=== PATIENT | female | born 1955 | race Caucasian/White ===

== ENCOUNTER 2025-01-06 09:09 | Inpatient (IN) | payer MEDICARE, OTHER, SELFPAY ==
[2025-01-06] VITALS (14 sets, daily range): BP systolic 116–150; BP diastolic 69–97; PULSE 74–94; RESP 14–18; TEMP 36.6–37.2; O2SAT 92–99; BMI 24.5
--- NOTE | 2025-01-06 09:11 | EKG12_ITS ---
Test Reason : NEURO
--- NOTE | 2025-01-06 09:11 | CT_ITS ---
PROCEDURE: CT/STROKE Brain/Head without Cont
--- NOTE | 2025-01-06 09:12 | RAD_ITS ---
PROCEDURE: RAD/Chest 1 View
--- NOTE | 2025-01-06 09:12 | CT_ITS ---
PROCEDURE: CT/STROKE CTA Head AND Neck W/Con
[2025-01-06 09:33] LABS: Hematocrit 37.6 % (37-47); Hemoglobin 13.1 g/dL (12.0-15.0); Immature Granulocytes Count 0.050 X10^3/uL (0.0-0.0); Mean Corp Hgb Conc 34.8 g/dL (32-36); Mean Corpuscular Volume 88.3 fL (81-99); Mean Platelet Vol. 9.1 fl (6.2-12.0); NRBC Flagged by Analyzer 0 % (0-5); Platelet Count 379 K/mm3 (150-450); RBC Distribution Width CV 12.5 % (11.6-14.6); RBC Distribution Width SD 40.2 fl (35.1-43.9); Red Blood Count 4.26 M/mm3 (4.2-5.4); White Blood Count 10.3 K/mm3 (4.4-11.0)
[2025-01-06 09:40] LABS: Partial Thromboplast Time 23.2 Seconds (24.1-36.2); Prothrombin Time (Protime)PT. 12.5 SECONDS (11.7-14.9)
--- NOTE | 2025-01-06 09:46 | EX.ED.DYSGE1 ---
HPI History of Present Illness Chief Complaint: Stroke Alert Narrative Narrative: Patient is a 69-year-old female with no known significant past medical history who presented to the emergency department the chief complaint of left arm weakness. Patient significant other at bedside notes that he noted yesterday afternoon around 2:00 in the afternoon that she had some left-sided facial droop. She states that she had a headache throughout the evening and notes that this morning when she woke up she states that she was able to to use her left arm however states that she did fall in the living room which is abnormal for her. States that now she cannot move her left arm. Her son notes that his father called him and he immediately brought her here for further evaluation patient denies any blood thinning medications. [facility] Medical History unable to obtain Home Medications ?Medication ?Instructions ?Recorded ?Last Taken ?Type lisinopril 10 mg tablet 10 mg PO DAILY #30 tabs 06/13/14 Unknown Rx Allergy/AdvReac Type Severity Reaction Status Date / Time No Known Allergies Allergy Verified 06/13/14 09:40 Family History unable to obtain Social History Smoking Status: Current some day smoker tobacco type: cigarettes ROS ROS ED ROS Narrative Constitutional: Complains of headache as noted above denies any dizziness Eyes: Denies double vision blurry vision Cardiovascular: Denies chest pain Respiratory: Denies shortness of breath Abdomen: Denies nausea vomit diarrhea : Denies any urinary symptoms Neurological: Complains of left facial droop and left arm weakness as noted above Musculoskeletal: Denies back pain Skin: Denies rashes or lesions EXAM Physical Exam Narrative Exam Narrative: General: Patient was lying in bed rest comfortably Head: Atraumatic, normocephalic Eyes: PERRL bilaterally, EOMI bilateral, no conjunctival injection noted Neck: Soft, supple, trachea midline Cardiovascular: Regular rate and rhythm Respiratory: Clear to auscultation bilaterally Abdomen: No tenderness to palpation Extremities: Patient has significant left upper extremity weakness when compared to the right +4/5 in the right upper extremity, +4/5 strength in the bilateral lower extremities, radial pulses +2/4 in bilateral extremities Neurological: Patient following commands knew that she was at [facility] the year is 2024. NIH of 6 GCS 15 Skin: Warm, dry, tact no rashes or lesions noted Const Vital Signs: 01/06/25 09:11 01/06/25 09:31 01/06/25 09:34 Temperature 98 F Temperature Source Temporal Pulse Rate 94 90 Respiratory Rate 18 18 Blood Pressure 147/81 H 139/97 H Blood Pressure Mean 103 111 Pulse Ox 99 99 Oxygen Delivery Method Room Air 01/06/25 09:41 Temperature Temperature Source Pulse Rate 90 Respiratory Rate 18 Blood Pressure 139/97 H Blood Pressure Mean 111 Pulse Ox 99 Oxygen Delivery Method Room Air MDM MDM MDM Narrative Medical decision making narrative: Patient is a 69-year-old female who presented to the emergency department with the concern for acute stroke. On the differential diagnose includes but not limited to intracranial hemorrhage, ischemic stroke, intracranial mass, hypoglycemia, electrolyte abnormality, ACS. Once workup is obtained reviewed she will be reevaluated. Patient is not a tenecteplase candidate as her symptoms started around 2 PM yesterday afternoon on 01/05/2025. Patient says CBC reviewed and showed no evidence leukocytosis white blood cell normal at 10.3, he was 13.1, platelet count of 379. Patient INR normal at 0.9, PT of 12.5. Patient's chemistries are pending troponin was normal at 13 [id number] glucose was normal at 92. Patient's EKG reviewed and showed sinus rhythm with a rate of 94 bpm with a OK interval of 206. Patient CT head brain without contrast showed focal area of decreased attenuation in the posterior right parietal lobe extending to the right temporal lobe may represent area of ischemia although underlying neoplastic process cannot be excluded radiology has much higher suspicion for ischemia given her acute presentation. Patient's chest x-ray reviewed by myself which showed mild interstitial changes in the right side no costophrenic angle blunting. Patient CTA of the head was read and alerted to me by radiologist that the patient has a right M3 occlusion near the right sylvian fissure. I called and spoke again with the on-call teleneurologist at [facility] Dr. Agudelo And he states that the management remains the same as the occlusion is too distal for their retrieval, Which was recommended 325 aspirin and 300 mg of Plavix which was ordered. Will reach out to the hospitalist for admission. Spoke with hospitalist Dr. Vizcaino who accept patient for admission. Patient notified as well as significant other at bedside they are agreeable this plan all question concerns answered at bedside. Critical care time 47 minutes Lab Data Labs: Laboratory Results - last 24 hr 01/06/25 01/06/25 09:18 09:19 WBC 10.3 RBC 4.26 Hgb 13.1 Hct 37.6 MCV 88.3 MCH 30.8 MCHC 34.8 RDW Std Deviation 40.2 RDW Coeff of Lori 12.5 Plt Count 379 MPV 9.1 Immature Gran % (Auto) 0.500 Neut % (Auto) 78.3 H Lymph % (Auto) 11.8 L [place] % (Auto) 7.3 Eos % (Auto) 1.6 Baso % (Auto) 0.5 Absolute Neuts (auto) 8.0 H Absolute Lymphs (auto) 1.21 Nucleated RBC % 0 PT 12.5 INR 0.9 APTT 23.2 L Sodium 136 Potassium 4.1 Chloride 102 Carbon Dioxide 22.6 Anion Gap 11 BUN 26 H Creatinine 0.81 Estim Creat Clear Calc 60.08 Est GFR (MDRD) Non-Af 78 BUN/Creatinine Ratio 32.3 H Glucose 107 H Calcium 9.5 Troponin T High Sens 13 POC Glucose 92 Radiography Diagnostic Testing: Clinical Impression(s) from Imaging Studies Brain CT 01/06/25 09:11 IMPRESSION: Focal area of decreased attenuation in the posterior right parietal lobe extending to the right temporal lobe. This may represent an area of ischemia although underlying neoplastic process can not be excluded. Punctate calcified density in the right sylvian fissure. Red Alert: Ischemic changes Right parietal lobe The critical findings in the findings and impression above were relayed directly by me by telephone to Rufino Crisostomo on 01/06/2025 at 9:25 am with readback verification. Reading Location: [id number] Chest X-Ray 01/06/25 09:12 IMPRESSION: Mild increased linear markings at the lung bases suggestive of basilar linear scarring. Reading Location: [id number] Head/Neck CTA 01/06/25 09:12 IMPRESSION: Occlusion of the M3 branch of the right middle cerebral artery as it enters the right sylvian fissure. Red Alert: Right M3 occlusion The critical findings in the findings and impression above were relayed directly by me by telephone to Rufino Crisostomo on 01/06/2025 at 9:50 am with readback verification. Reading Location: [id number] Discharge Plan Dx/Rx/DC Orders Clinical Impression: Left arm weakness, Facial droop due to stroke, Left leg numbness, Ischemic cerebrovascular accident (CVA) Disposition Disposition: Acute Care Hospital [facility]
[2025-01-06 09:48] LABS: Troponin T High Sensitivity 13 ng/L (<=14)
[2025-01-06 09:59] LABS: Anion Gap 11 (5-15); BUN 26 mg/dL (4-19); BUN/Creat Ratio 32.3 RATIO (10-20); Calcium,Total 9.5 mg/dL (7.6-11.0); Carbon Dioxide 22.6 mmol/L (21.0-32.0); Chloride 102 mmol/L (98-108); Estimated Creatinine Clearance 60.08 ml/min (50-250); Glucose 107 mg/dL (70-99); Potassium 4.1 mmol/L (3.3-5.1)
--- NOTE | 2025-01-06 10:02 | MRI_ITS ---
PROCEDURE: MRI/Brain without Contrast
--- NOTE | 2025-01-06 10:04 | PCM.HP.STD ---
HPI - General General Date of Admission: 01/06/25 HPI Narrative JADEN MOORE, is a 69 F who presents to the hospital with concerns for stroke. Family noticed yesterday around 2 PM yesterday left facial droop that progressed to a left upper extremity weakness and left lower extremity weakness. In the emergency room she is about an NIH of 5 with significant weakness on her left side with left facial droop that is persistent. CTA of the head and neck was unremarkable she was given a dose of aspirin and Plavix and will be admitted for further workup and evaluation for outpatient disposition. [facility] Medical History High cholesterol Heart attack Hypertension Medical History unable to obtain Home Medications ?Medication ?Instructions ?Recorded ?Last Taken ?Type amlodipine 5 mg tablet 5 mg PO DAILY blood pressure 01/06/25 Unknown History atorvastatin 40 mg tablet 40 mg PO DAILY cholesterol 01/06/25 Unknown History calcium 600 mg (as 1 tab PO DAILY suppliment 01/06/25 Unknown History carbonate)-vitamin D3 20 mcg (800 unit) tablet (Caltrate with Vitamin D3) losartan 50 mg tablet 50 mg PO DAILY blood pressure 01/06/25 Unknown History omeprazole 20 mg capsule,delayed 20 mg PO DAILY gerd 01/06/25 Unknown History release Allergy/AdvReac Type Severity Reaction Status Date / Time No Known Allergies Allergy Verified 06/13/14 09:40 Family History Other Cancer Diabetes Heart disease Family History unable to obtain Surgical History H/O section Social History (Updated 01/06/25 @ 11:47 by Francine Tovar) Smoking Status: Current some day smoker tobacco type: cigarettes ROS Constitutional Constitutional: Denies chills, fatigue, fever(s) or malaise Eyes Eyes: Denies blurry vision ENT HEENT: Denies headache(s) or nasal discharge Cardiovascular Cardiovascular: Denies chest pain, dyspnea on exertion or syncope Respiratory/Chest Respiratory/Chest: Denies cough, shortness of breath at rest or shortness of breath with exertion Gastrointestinal Gastrointestinal: Denies constipation, diarrhea, nausea or vomiting Genitourinary Genitourinary: Denies dysuria Neurologic Neurologic: Reports abnormal speech, focal weakness and paresthesias; Denies numbness or tremor(s) Psychiatric Psychiatric: Denies anxiety or depression Vital Signs Vital Signs Vital Signs: 01/06/25 09:11 01/06/25 09:31 01/06/25 09:34 Temperature 98 F Temperature Source Temporal Pulse Rate 94 90 Respiratory Rate 18 18 Blood Pressure 147/81 H 139/97 H Blood Pressure Mean 103 111 Pulse Ox 99 99 Oxygen Delivery Method Room Air 01/06/25 09:41 Temperature Temperature Source Pulse Rate 90 Respiratory Rate 18 Blood Pressure 139/97 H Blood Pressure Mean 111 Pulse Ox 99 Oxygen Delivery Method Room Air Weight Weight: 128 lb Body Mass Index (BMI) 20.0 Physical Exam Narrative General: Alert, Oriented x3, Cooperative, No apparent distress HEENT: Atraumatic, PERRLA, EOMI, Normocephalic Oral: Moist Mucosa Neck: Supple, No JVD Lungs: Diminished, Normal air movement, No rhonchi, No wheeze, No rales Cardiovascular: Regular rate, Regular Rhythm, Normal S1, Normal S2, No murmurs Abdomen: Soft, Non Tender, Non-Distended, No Hepato-splenomegaly Extremities: No edema, Capillary Refill Less than 3 Seconds Skin: No rashes, No breakdown Musculoskeletal: No Tenderness to Palpation of Joints or Extremities Neurological: NIH of 5 with left upper extremity drift and weakness with decreased sensation of the left lower extremity compared to the right left facial droop Psych/Mental Status: Normal Affect, Appropriate Results Lab / Micro Data 01/06/25 09:19 01/06/25 09:19 Labs: Laboratory Results - last 24 hr 01/06/25 09:18: POC Glucose 92 01/06/25 09:19: WBC 10.3, RBC 4.26, Hgb 13.1, Hct 37.6, MCV 88.3, MCH 30.8, MCHC 34.8, RDW Std Deviation 40.2, RDW Coeff of Lori 12.5, Plt Count 379, MPV 9.1, Immature Gran % (Auto) 0.500, Neut % (Auto) 78.3 H, Lymph % (Auto) 11.8 L, Jerome % (Auto) 7.3, Eos % (Auto) 1.6, Baso % (Auto) 0.5, Absolute Neuts (auto) 8.0 H, Absolute Lymphs (auto) 1.21, Nucleated RBC % 0, PT 12.5, INR 0.9, APTT 23.2 L, Sodium 136, Potassium 4.1, Chloride 102, Carbon Dioxide 22.6, Anion Gap 11, BUN 26 H, Creatinine 0.81, Estim Creat Clear Calc 60.08, Est GFR (MDRD) Non-Af 78, BUN/Creatinine Ratio 32.3 H, Glucose 107 H, Calcium 9.5, Troponin T High Sens 13 Imaging Radiology Impression Brain CT 01/06/25 09:11 IMPRESSION: Focal area of decreased attenuation in the posterior right parietal lobe extending to the right temporal lobe. This may represent an area of ischemia although underlying neoplastic process can not be excluded. Punctate calcified density in the right sylvian fissure. Red Alert: Ischemic changes Right parietal lobe The critical findings in the findings and impression above were relayed directly by me by telephone to Rufino Crisostomo on 01/06/2025 at 9:25 am with readback verification. Reading Location: [facility] Chest X-Ray 01/06/25 09:12 IMPRESSION: Mild increased linear markings at the lung bases suggestive of basilar linear scarring. Reading Location: [facility] Head/Neck CTA 01/06/25 09:12 IMPRESSION: Occlusion of the M3 branch of the right middle cerebral artery as it enters the right sylvian fissure. Red Alert: Right M3 occlusion The critical findings in the findings and impression above were relayed directly by me by telephone to Rufino Crisostomo on 01/06/2025 at 9:50 am with readback verification. Reading Location: [facility] Assessment & Plan Assessment/Plan (1) Ischemic cerebrovascular accident (CVA): PLAN: Plan 1. CVA ? CT of the head and neck shows an occlusion of the M3 branch of the right middle cerebral artery as it enters the right sylvian fissure ?CT of the brain demonstrates a subacute stroke ? Right and left ICA show stenosis, will get a carotid Doppler for better characterization ? Continue statin ? Continue with aspirin and Plavix ? Appreciate neurology's assistance ? Continue with stroke protocol 2. Essential HTN/HLD ? Will hold her Norvasc and losartan for permissive hypertension ? Will increase her Lipitor to 80 mg daily ? Will monitor her blood pressures and make adjustments as necessary 3. GERD ? Stable ? Continue with PPI DVT: SCDs 75 minutes was spent on direct patient care, including documentation as well as chart review and collaboration with colleagues Charges/Coding Visit Charges Inpatient E&M: 16530 Init Hosp L3
[2025-01-06] MEDS: Lactated Ringers 1,000 ML 125 ML IV (10:11)
--- NOTE | 2025-01-06 10:30 | CDU_ITS ---
Reason For Study VL/Carotid Duplex Ultrasound
--- NOTE | 2025-01-06 11:25 | ECHOD_ITS ---
Reason For Study ECHO/Echo Complete
[2025-01-06 11:36] LABS: Troponin T High Sens 2 HR 18 ng/L (<=14)
[2025-01-06 13:30] LABS: Troponin T High Sens 4 HR 13 ng/L (<=14)
[2025-01-07 03:00] VITALS: BP 141/73; PULSE 74; PULSE 77; RESP 16; TEMP 37; O2SAT 93
[2025-01-07 05:34] LABS: Hematocrit 33.2 % (37-47); Hemoglobin 11.4 g/dL (12.0-15.0); Immature Granulocytes Count 0.010 X10^3/uL (0.0-0.0); Mean Corp Hgb Conc 34.3 g/dL (32-36); Mean Corpuscular Volume 87.8 fL (81-99); Mean Platelet Vol. 9.4 fl (6.2-12.0); NRBC Flagged by Analyzer 0 % (0-5); Platelet Count 312 K/mm3 (150-450); RBC Distribution Width CV 12.8 % (11.6-14.6); RBC Distribution Width SD 41.3 fl (35.1-43.9); Red Blood Count 3.78 M/mm3 (4.2-5.4); White Blood Count 6.5 K/mm3 (4.4-11.0)
[2025-01-07 06:22] LABS: Anion Gap 10 (5-15); BUN 20 mg/dL (4-19); BUN/Creat Ratio 29.0 RATIO (10-20); Calcium,Total 8.9 mg/dL (7.6-11.0); Carbon Dioxide 21.2 mmol/L (21.0-32.0); Chloride 106 mmol/L (98-108); Estimated Creatinine Clearance 56.93 ml/min (50-250); Glucose 88 mg/dL (70-99); Potassium 3.4 mmol/L (3.3-5.1)
[2025-01-07 06:50] LABS: Cholesterol 148 mg/dL (<=200); Low Density Lipoprotein Calc. 73 mg/dL; Triglycerides 56 mg/dL; Very Low Density Lipoprotein 11 mg/dL (5-40); cholesterol:hdl ratio screen 2.34
[2025-01-07 07:00] VITALS: BP 125/82; PULSE 71; RESP 14; TEMP 37.3; O2SAT 93
[2025-01-07 09:38] VITALS: O2SAT 90
--- NOTE | 2025-01-07 09:46 | PCM.PN.HOSP ---
Subjective Subjective Deficits remain the same as yesterday. Objective Data Objective Data Vital Signs: Vital Signs Temp Pulse Resp BP Pulse Ox O2 Del Method 99.1 F 71 14 125/82 H 93 Room Air 01/07/25 07:00 01/07/25 07:00 01/07/25 07:00 01/07/25 07:00 01/07/25 07:00 01/07/25 07:55 Oxygen Delivery Method Room Air Weight: 133 lb 13.129 oz Body Mass Index (BMI) 24.5 Intake & Output: Intake and Output for Last 24 Hours 01/06/25 01/07/25 01/08/25 03:59 03:59 03:59 Intake Total 1200 / 1200 Balance 1200 / 1200 Lab / Micro Data 01/07/25 04:48 01/07/25 04:48 Labs: Laboratory Results - last 24 hr 01/06/25 09:19: Sodium 136, Potassium 4.1, Chloride 102, Carbon Dioxide 22.6, Anion Gap 11, BUN 26 H, Creatinine 0.81, Estim Creat Clear Calc 60.08, Est GFR (MDRD) Non-Af 78, BUN/Creatinine Ratio 32.3 H, Glucose 107 H, Calcium 9.5, Troponin T High Sens 13 01/06/25 11:05: Troponin T Hi Sens 2 Hr 18 H 01/06/25 12:50: Troponin T Hi Sens 4Hr 13 01/07/25 04:48: WBC 6.5, RBC 3.78 L, Hgb 11.4 L, Hct 33.2 L, MCV 87.8, MCH 30.2, MCHC 34.3, RDW Std Deviation 41.3, RDW Coeff of Lori 12.8, Plt Count 312, MPV 9.4, Immature Gran % (Auto) 0.200, Neut % (Auto) 66.7, Lymph % (Auto) 20.8, Gage % (Auto) 10.5 H, Eos % (Auto) 1.5, Baso % (Auto) 0.3, Absolute Neuts (auto) 4.3, Absolute Lymphs (auto) 1.35, Nucleated RBC % 0, Sodium 138, Potassium 3.4, Chloride 106, Carbon Dioxide 21.2, Anion Gap 10, BUN 20 H, Creatinine 0.70, Estim Creat Clear Calc 56.93, Est GFR (MDRD) Non-Af 94, BUN/Creatinine Ratio 29.0 H, Glucose 88, Calcium 8.9, Triglycerides 56, Cholesterol 148, LDL Cholesterol, Calc 73, VLDL Cholesterol 11, HDL Cholesterol 63, Cholesterol/HDL Ratio 2.34 Radiography Diagnostic Testing: Radiology Impression Chest X-Ray 01/06/25 09:12 IMPRESSION: Mild increased linear markings at the lung bases suggestive of basilar linear scarring. Reading Location: [facility] Head/Neck CTA 01/06/25 09:12 IMPRESSION: Occlusion of the M3 branch of the right middle cerebral artery as it enters the right sylvian fissure. Red Alert: Right M3 occlusion The critical findings in the findings and impression above were relayed directly by me by telephone to Rufino Crisostomo on 01/06/2025 at 9:50 am with readback verification. Reading Location: [facility] Brain MRI 01/06/25 10:02 IMPRESSION: 1. Acute ischemia right insular cortex and parietal lobe. No hemorrhage. 2. Chronic changes of microvascular ischemia including the frontal and parietal lobes and the kam. 3. Small mass immediately posterior to the dens, right of midline with mild mass effect on the caudal medulla. This is suboptimally imaged. On a nonemergent basis consider dedicated MRI with contrast of the temporal bone/cerebellopontine angle. Differential consideration includes a synovial cyst (retro dental synovial cyst). Reading Location: [id number] Carotid Duplex 01/06/25 10:30 Interpretation Summary Mild (<50%) stenosis right extracranial internal carotid. Mild (<50%) stenosis left extracranial internal carotid. Patent and antegrade vertebrals bilaterally. Ordering Physician: Dung Vizcaino Performed By: Alf Arzola, RVT Echocardiogram 01/06/25 11:25 Interpretation Summary The left ventricular ejection fraction is 70 %. Normal LV size. Stage 1 diastolic dysfunction. Aortic sclerosis, no stenosis. Small (<1.0 cm) pericardial effusion. There are no echocardiographic indications of cardiac tamponade. Ordering Physician: Dung Vizcaino Referring Physician: Sherley Farrar Performed By: Marilee Finnegan RDCS Physical Exam Narrative General: Alert, Oriented x3, Cooperative, No apparent distress HEENT: Atraumatic, PERRLA, EOMI, Normocephalic Oral: Moist Mucosa Neck: Supple, No JVD Lungs: Diminished, Normal air movement, No rhonchi, No wheeze, No rales Cardiovascular: Regular rate, Regular Rhythm, Normal S1, Normal S2, No murmurs Abdomen: Soft, Non Tender, Non-Distended, No Hepato-splenomegaly Extremities: No edema, Capillary Refill Less than 3 Seconds Skin: No rashes, No breakdown Musculoskeletal: No Tenderness to Palpation of Joints or Extremities Neurological: NIH of 5 with left upper extremity drift and weakness with decreased sensation of the left lower extremity compared to the right left facial droop Psych/Mental Status: Normal Affect, Appropriate Assessment & Plan Assessment/Plan (1) Ischemic cerebrovascular accident (CVA): PLAN: Plan 1. CVA ? CT of the head and neck shows an occlusion of the M3 branch of the right middle cerebral artery as it enters the right sylvian fissure ?CT of the brain demonstrates a subacute stroke, MRI confirms stroke in the right insular cortex and parietal lobe ? Right and left ICA show stenosis, carotid Doppler demonstrated less than 50% stenosis in the bilateral extracranial carotid arteries ? Continue statin ? Continue with aspirin and Plavix ? Appreciate neurology's assistance ? Continue with stroke protocol ? Small mass immediately posterior to the dens, right of midline with mild mass effect on the caudal medulla. This is suboptimally imaged. On a nonemergent basis consider dedicated MRI with contrast of the temporal bone/cerebellopontine angle. 2. Essential HTN/HLD ? Will hold her Norvasc and losartan for permissive hypertension ? Will increase her Lipitor to 80 mg daily ? Will monitor her blood pressures and make adjustments as necessary 3. GERD ? Stable ? Continue with PPI DVT: SCDs Charges/Coding Visit Charges Inpatient E&M: 64354 Subs Hosp L2 NIHSS NIHSS Nursing Documentation NIHSS Nursing Documentation: NIHSS: Ischemic Stroke/TIA Start: 01/06/25 11:25 Text: For PCU Patients: NIH and Neuro Check every 4 Status: Active hours, PRN and with change in RN caregiver. Freq: [id number] Protocol: Activity Type Activity Date Activity User E-sign Co-sign Detail Recorded Client Recorded Date Recorded By Document 01/07/25 07:00 DS [id number] 01/07/25 07:54 DS 01/07/25 07:00 NIH Stroke Scale [NIHSS] A score of 0 is normal or asymptomatic . Total possible score is 42. Inpatient: RN or Physician to activate a stroke alert for onset of new stroke symptoms or with NIHSS increase >/= 3 points. Following change in neurological status, NIHSS will be performed per physician order or more frequently PRN. -1a. Level of Consciousness 0 - Alert; keenly responsive -1b. LOC Questions 0 - Answers BOTH questions correctly -1c. LOC Commands 0 - Performs BOTH tasks correctly -2. Best Gaze 0 - Normal -3. Visual 0 - No visual loss -4. Facial Palsy 1 - Minor paralysis ( flattened nasolabial fold , asymmetry on smiling) -5a. Left Arm 1 - Drift; arm drifts downward but doesn?t hit the bed -5b. Right Arm 0 - No drift; arm holds 90 ( or 45) degrees for full 10 seconds -6a. Left Leg 0 - No drift; leg holds 30- degree position for full 5 seconds -6b. Right Leg 0 - No drift; leg holds 30- degree position for full 5 seconds -7. Limb Ataxia 1 - Present in 1 limb -8. Sensory 0 - Normal; no sensory loss -9. Best Language 0 - No aphasia; normal -10. Dysarthria 1 = Mild-to- moderate dysarthria; -11. Extinction and Inattention 0 - No abnormality -Total 4 Query Text:A score of 0 is normal or asymptomatic. Total possible score is 42 . ED: Notify Physician for NIHSS increase by > / = 3 points. Inpatient: RN or Physician to activate a stroke alert for NIHSS increase of > / = 3 points. Coma Scale [Assess] -Eye Opening Spontaneous -Motor Obeys Commands -Verbal Oriented [Total] -Coma Scale Total 15
--- NOTE | 2025-01-07 10:00 | CASEMGMT ---
Addendum entered by Honey Negro 01/07/25 10:35: USAMA BASS in to follow up with patient and family regarding preferences. Patient and family prefer [facility]. RN SHELIA made referral to [facility], awaiting acceptance. CM will continue to follow this patient and plan for a safe discharge. Original Note: USAMA BASS Face to Face with patient for initial transition planning/care coordination assessment. USAMA BASS introduced self and role at [facility]. Patient lying in bed, alert and oriented, and grandson at bedside. Patient willing to participate in assessment and is able to answer all questions appropriately. Care providers, pharmacy, and demographics verified. 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 Patient was independent at home prior to hospitalization. states that if needed, son lives next door and arrangement could be made for patient to stay at son's house that has first floor setup. Transportation: self, DME/HHC: Patient denies DME in the home. No previous HHC or SNF. Patient wishes to discharge home but states therapy is recommending acute rehab. RN SHELIA discussed therapy recommendations and the benefits of rehab. Patient and family would like list for Acute Rehab Units. Patient was provided a list of Acute Rehab providers including quality and resource use data and consistent with the patient?s preferred geographic region, medical needs, and insurance network. Patient and family to review list and provide preferences. Patient and family state they have no further needs or concerns at this time. CM to follow for discharge planning needs that may arise. Disposition Plan: Acute rehab pending preferences and acceptance. Honey Negro BSN, RN, CM
--- NOTE | 2025-01-07 10:44 | DCINST_ITS ---
Discharge Instructions
--- NOTE | 2025-01-07 10:44 | PCM.DC ---
Discharge Instructions DC O2, CPAP, BIPAP needs Home O2 Discharge instructions: No Dressing / Incision Discharge Activity: Return to Normal Activity Dressing / Incision Call your doctor if you observe: Fever of 101 or Higher, Shortness of breath, Dizziness, Fainting spells, Swelling in the ankles, Chest pain and Increased palpitations (irregular heartbeat) Follow Up Care Test Results: Test results from this visit will be discussed in further detail at your follow-up appointment, if applicable. Discharge Plan Admission Admit Date/Time: 01/06/25 10:03 Attending Provider: Dung Vizcaino Primary Care Provider: Sherley Farrar Consulting Providers: Lenny Higgins; Gurinder Williamson; Addie Tesfaye; Autumn Blanco; Christina Roman; Adam Dumont; Maribel Henderson; Ranulfo Mcdaniels; Chad Mason; Olayinka Agudelo; Cherelle Lopez; Heather Christensen; Luke Burroughs; Viky Arshad; Aime Smith; Kwame Crum; Gilson Rey; Black Correia; Richard Friedman; Georgia Chen; Gonzalo Thao Discharge Orders/Prescriptions Prescriptions: New atorvastatin 80 mg Tablet 80 mg PO QHS 30 Days Qty: 30 0RF clopidogrel 75 mg Tablet 75 mg PO DAILY 21 Days Qty: 21 0RF aspirin 81 mg Tablet,Chewable 81 mg PO BREAKFAST 30 Days Qty: 30 0RF Continued amlodipine 5 mg tablet 5 mg PO DAILY omeprazole 20 mg capsule,delayed release(DR/EC) 20 mg PO DAILY losartan 50 mg tablet 50 mg PO DAILY calcium carbonate-vitamin D3 [Caltrate with Vitamin D3] 600 mg-20 mcg (800 unit) tablet 1 tab PO DAILY Discontinued atorvastatin 40 mg tablet 40 mg PO DAILY Referrals / Follow Up: Sherley Farrar MD [Primary Care Provider, Internal Medicine] Disposition Disposition (needs filled in before D/C Order can be placed): Inpatient Rehab Unit/Facility
--- NOTE | 2025-01-07 10:46 | CASEMGMT ---
Addendum entered by Honey Negro 01/07/25 11:08: Patient has order for discharge to [facility]. USAMA BASS updated Rubina in [facility], patient is able to come over at anytime prior to 2pm. USAMA BASS updated patient, at bedside, of discharge placed for today. USAMA BASS updated nurisng that patient can discharge today and will need to be there prior to 2pm. Original Note: USAMA BASS received updated from [facility] that they are able to accept the patient and patient could come today but would need to be before 2pm, if patient is not able to come today, then would not be able to admit till Friday. USAMA BASS updated patient and family regarding acceptance and possible discharge today to [facility] pending hospitalist orders. Patient and family voiced understanding and appreciation. USAMA BASS updated hospitalist of approval and able to admit today to [facility] prior to 2pm, awaiting discharge. CM will continue to follow this patient and plan for a safe discharge.
--- NOTE | 2025-01-07 10:58 | PCM.DC.SUM ---
Providers Date of Admission: 01/06/25 Primary Care Physician: Dr. Sherley Farrar MD Consultations 01/06/25 11:25 Consult: Tele-Neurology Routine Consulting Provider: [facility] Reason for Consult: Acute Ischemic Stroke/TIA EMERGENT Consult: No MD Notified: Yes Date Notified: 01/06/25 Time Notified: 10:05 Method of Notification: Answering Service Nursing Unit Staff Notify [facility] of Tele-Neurology Consult: Yes Reason For Visit: CVA Diagnosis Discharge Diagnosis (1) Ischemic cerebrovascular accident (CVA): Status: Acute Code(s): I63.9 - Cerebral infarction, unspecified Medications at Discharge Home Medications amlodipine 5 mg tablet 5 mg PO DAILY blood pressure 01/06/25 calcium 600 mg (as carbonate)-vitamin D3 20 mcg (800 unit) tablet (Caltrate with Vitamin D3) 1 tab PO DAILY supplement 01/06/25 losartan 50 mg tablet 50 mg PO DAILY blood pressure 01/06/25 omeprazole 20 mg capsule,delayed release 20 mg PO DAILY gerd 01/06/25 aspirin 81 mg chewable tablet 81 mg PO BREAKFAST 30 days #30 tabs 01/07/25 atorvastatin 80 mg tablet 80 mg PO QHS 30 days #30 tabs 01/07/25 clopidogrel 75 mg tablet 75 mg PO DAILY 21 days #21 tabs 01/07/25 Hospital Course Operations None Procedures 2-D Echocardiogram Summary of Care Provided Minutes Spent on Discharge: 34 Hospital Course: Per HPI: JADEN MOORE, is a 69 F who presents to the hospital with concerns for stroke. Family noticed yesterday around 2 PM yesterday left facial droop that progressed to a left upper extremity weakness and left lower extremity weakness. In the emergency room she is about an NIH of 5 with significant weakness on her left side with left facial droop that is persistent. CTA of the head and neck was unremarkable she was given a dose of aspirin and Plavix and will be admitted for further workup and evaluation for outpatient disposition. Hospital Course: 1. Subacute CVA to the right insular cortex and parietal lobe?69-year-old female presented to the hospital approximately 24 hours after symptoms began for stroke. It was noticed that she had a left facial droop the day prior to admission and then the day of admission she had significant left-sided weakness in her upper and lower extremity. Currently remains about in the NIH of 4-[address] of the brain demonstrated a subacute stroke, CTA of the head and neck demonstrated occlusion of the M3 branch of the right middle cerebral artery as well as some stenosis in her carotid artery so a carotid Doppler was obtained which clarified the stenosis to being less than 50% bilaterally. Will continue with high-dose statin of 80 mg daily of Lipitor, continue with aspirin 81 mg daily and Plavix 75 mg daily, the aspirin will be indefinitely and the Plavix will be for 21 days per neurology recommendations. Echocardiogram demonstrated an EF of 70% with stage I diastolic dysfunction no PFO. Her blood pressure medications have been held since admission and these can be restarted tomorrow after discharge. Of note she has a small mass immediately posterior to the dens, right of midline with mild mass effect on the caudal medulla. This is suboptimally imaged. On a nonemergent basis consider dedicated MRI with contrast of the temporal bone/cerebellopontine angle. I discussed with her the plan for discharge and she expressed understanding of the risks and benefits of going to rehab today would like to go. 2. Essential hypertension, hyperlipidemia, GERD are all chronic medical conditions which complicate her care. Her home medications were continued where appropriate Weight / BMI Weight Weight: 133 lb 13.129 oz Body Mass Index (BMI) 24.5 ABG / Lab / Microbiology Data 01/07/25 04:48 01/07/25 04:48 Laboratory: Laboratory Results - last 24 hr 01/06/25 11:05: Troponin T Hi Sens 2 Hr 18 H 01/06/25 12:50: Troponin T Hi Sens 4Hr 13 01/07/25 04:48: WBC 6.5, RBC 3.78 L, Hgb 11.4 L, Hct 33.2 L, MCV 87.8, MCH 30.2, MCHC 34.3, RDW Std Deviation 41.3, RDW Coeff of Lori 12.8, Plt Count 312, MPV 9.4, Immature Gran % (Auto) 0.200, Neut % (Auto) 66.7, Lymph % (Auto) 20.8, [place] % (Auto) 10.5 H, Eos % (Auto) 1.5, Baso % (Auto) 0.3, Absolute Neuts (auto) 4.3, Absolute Lymphs (auto) 1.35, Nucleated RBC % 0, Sodium 138, Potassium 3.4, Chloride 106, Carbon Dioxide 21.2, Anion Gap 10, BUN 20 H, Creatinine 0.70, Estim Creat Clear Calc 56.93, Est GFR (MDRD) Non-Af 94, BUN/Creatinine Ratio 29.0 H, Glucose 88, Calcium 8.9, Triglycerides 56, Cholesterol 148, LDL Cholesterol, Calc 73, VLDL Cholesterol 11, HDL Cholesterol 63, Cholesterol/HDL Ratio 2.34 Radiography Diagnostic Testing: Radiology Impression Brain MRI 01/06/25 10:02 IMPRESSION: 1. Acute ischemia right insular cortex and parietal lobe. No hemorrhage. 2. Chronic changes of microvascular ischemia including the frontal and parietal lobes and the kam. 3. Small mass immediately posterior to the dens, right of midline with mild mass effect on the caudal medulla. This is suboptimally imaged. On a nonemergent basis consider dedicated MRI with contrast of the temporal bone/cerebellopontine angle. Differential consideration includes a synovial cyst (retro dental synovial cyst). Reading Location: [facility] Carotid Duplex 01/06/25 10:30 Interpretation Summary Mild (<50%) stenosis right extracranial internal carotid. Mild (<50%) stenosis left extracranial internal carotid. Patent and antegrade vertebrals bilaterally. Ordering Physician: Dung Vizcaino Performed By: Alf Arzola, RVT Echocardiogram 01/06/25 11:25 Interpretation Summary The left ventricular ejection fraction is 70 %. Normal LV size. Stage 1 diastolic dysfunction. Aortic sclerosis, no stenosis. Small (<1.0 cm) pericardial effusion. There are no echocardiographic indications of cardiac tamponade. Ordering Physician: Dung Vizcaino Referring Physician: Sherley Farrar Performed By: Marilee Finnegan RDCS D/C Instructions Call your doctor if you observe: Fever of 101 or Higher, Shortness of breath, Dizziness, Fainting spells, Swelling in the ankles, Chest pain and Increased palpitations (irregular heartbeat) DC O2, CPAP, BIPAP Needs Home O2 Discharge instructions: No Meaningful Use Info Meaningful Use Meaningful Use Diagnoses (Choose all that apply): None applicable Discharge Plan Admission Admit Date/Time: 01/06/25 10:03 Attending Provider: Dung Vizcaino Primary Care Provider: Sherley Farrar Consulting Providers: Lenny Higgins; Gurinder Williamson; Addie Tesfaye; Autumn Blanco; Christina Roman; Adam Dumont; Maribel Henderson; Ranulfo Mcdaniels; Chad Mason; Olayinka Agudelo; Cherelle Lopez; Heather Christensen; Luke Burroughs; Viky Arshad; Aime Smith; Kwame Crum; Gilson Rey; Black Correia; Richard Friedman; Georgia Chen; Gonzalo Thao Discharge Orders/Prescriptions Prescriptions: New atorvastatin 80 mg Tablet 80 mg PO QHS 30 Days Qty: 30 0RF clopidogrel 75 mg Tablet 75 mg PO DAILY 21 Days Qty: 21 0RF aspirin 81 mg Tablet,Chewable 81 mg PO BREAKFAST 30 Days Qty: 30 0RF Continued amlodipine 5 mg tablet 5 mg PO DAILY omeprazole 20 mg capsule,delayed release(DR/EC) 20 mg PO DAILY losartan 50 mg tablet 50 mg PO DAILY calcium carbonate-vitamin D3 [Caltrate with Vitamin D3] 600 mg-20 mcg (800 unit) tablet 1 tab PO DAILY Discontinued atorvastatin 40 mg tablet 40 mg PO DAILY Referrals / Follow Up: Sherley Farrar MD [Primary Care Provider, Internal Medicine] Disposition Disposition (needs filled in before D/C Order can be placed): Inpatient Rehab Unit/Facility Charges/Coding Visit Charges Inpatient E&M: 15437 Disch Hosp >30min
[2025-01-07 11:00] VITALS: BP 142/75; PULSE 74; RESP 14; TEMP 36.6; O2SAT 96
--- NOTE | 2025-01-07 11:09 | CASEMGMT ---
Social Work Pt positive for a stroke. SW completed PHQ9 with score of 2/27 indicating minimal depression. SW educated pt to correlation between stroke and depression. JOSÉ MIGUEL Jarvis
--- NOTE | 2025-01-07 11:45 | CASEMGMT ---
Social Work SW met with pt to validate advance directives. Pt has not completed documents but would like to at this time. SW assisted in completing living will and HCPOA naming her Momo Huffman. Copy placed in pt chart and original given to pt. JOSÉ MIGUEL Jarvis
--- NOTE | 2025-01-07 12:01 | PHA.DC_ITS ---
Pharmacy DC Med Reconciliation
--- NOTE | 2025-01-07 12:01 | PHA.DC.MR.R ---
Pharmacy PA Med Reconciliation Pharmacy Service has performed discharge medication reconciliation for this patient. The patient's discharge medication list was reviewed for discrepancies and discrepancies were resolved. Medications at Discharge Home Medications amlodipine 5 mg tablet 5 mg PO DAILY blood pressure 01/06/25 calcium 600 mg (as carbonate)-vitamin D3 20 mcg (800 unit) tablet (Caltrate with Vitamin D3) 1 tab PO DAILY supplement 01/06/25 losartan 50 mg tablet 50 mg PO DAILY blood pressure 01/06/25 omeprazole 20 mg capsule,delayed release 20 mg PO DAILY gerd 01/06/25 aspirin 81 mg chewable tablet 81 mg PO BREAKFAST 30 days #30 tabs 01/07/25 atorvastatin 80 mg tablet 80 mg PO QHS 30 days #30 tabs 01/07/25 clopidogrel 75 mg tablet 75 mg PO DAILY 21 days #21 tabs 01/07/25
--- NOTE | 2025-01-07 13:21 | NURSING ---
report called to [facility] FORRESTER in rehab
--- NOTE | 2025-01-07 13:24 | PN.NEURO_ITS ---
Assessment and Plan: Neuro
--- NOTE | 2025-01-07 13:24 | NEURO.PNOTE ---
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 NIHSS-5. CT head- focal area of decreased attenuation in the posterior right parietal lobe extending to the right temporal lobe. There was a punctate calcified density in the right sylvian fissure. CTA- Right M3 occlusion. Outside of lytic window. TTE- left ventricular ejection fraction of 70% with stage I diastolic dysfunction and no wall motion abnormalities. There was a small, less than 1 cm, pericardial effusion with no evidence of tamponade. MRI brain -acute ischemia in the right insular cortex and parietal lobe with no hemorrhage. Also found to have small mass immediately posterior to the dens, right of midline with mild mass effect on the caudal medulla. A carotid ultrasound showed mild stenosis of the right extracranial internal carotid and mild stenosis of the left extracranial internal carotid and both were estimated to be less than 50%. LDL- 73. Diagnosis: Right MCA stroke, cryptogenic. Given calcification, also concern for intracranial athero Plan: ASA and plavix for 90 days followed by ASA 325mg daily. Continue statin. Follow up A1c. Event monitor on discharge. 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 Control of vascular risk factors I personally attended this patient and spent a total time of 35 minutes evaluating this patient including clinical assessment, review of chart, medical history imaging, and determining appropriate treatment and workup. Subject: Neurology Subjective No acute events overnight. She still has left sided weakness. EEG Results Procedure Details EEG Procedure Details: JADEN MOORE is a 69 year old F with a past medical history of , who presents for evaluation of Electroencephalogram on DATE at TIME Objective Data Objective Data Vital Signs: Vital Signs Temp Pulse Resp BP Pulse Ox O2 Del Method 98 F 74 14 142/75 H 96 Room Air 01/07/25 11:00 01/07/25 11:00 01/07/25 11:00 01/07/25 11:00 01/07/25 11:00 01/07/25 11:00 Oxygen Delivery Method Room Air Weight: 60.7 kg Body Mass Index (BMI) 24.5 Intake & Output: Intake and Output for Last 24 Hours 01/05/25 01/06/2525 23:59 23:59 23:59 Intake Total 1200 / 1200 600 / 600 Balance 1200 / 1200 600 / 600 Lab / Micro Data 01/07/25 04:48 01/07/25 04:48 Labs: Laboratory Results - last 24 hr 01/06/25 12:50: Troponin T Hi Sens 4Hr 13 01/07/25 04:48: WBC 6.5, RBC 3.78 L, Hgb 11.4 L, Hct 33.2 L, MCV 87.8, MCH 30.2, MCHC 34.3, RDW Std Deviation 41.3, RDW Coeff of Lori 12.8, Plt Count 312, MPV 9.4, Immature Gran % (Auto) 0.200, Neut % (Auto) 66.7, Lymph % (Auto) 20.8, [place] % (Auto) 10.5 H, Eos % (Auto) 1.5, Baso % (Auto) 0.3, Absolute Neuts (auto) 4.3, Absolute Lymphs (auto) 1.35, Nucleated RBC % 0, Sodium 138, Potassium 3.4, Chloride 106, Carbon Dioxide 21.2, Anion Gap 10, BUN 20 H, Creatinine 0.70, Estim Creat Clear Calc 56.93, Est GFR (MDRD) Non-Af 94, BUN/Creatinine Ratio 29.0 H, Glucose 88, Calcium 8.9, Triglycerides 56, Cholesterol 148, LDL Cholesterol, Calc 73, VLDL Cholesterol 11, HDL Cholesterol 63, Cholesterol/HDL Ratio 2.34 Radiography Diagnostic Testing: Radiology Impression Carotid Duplex 01/06/25 10:30 Interpretation Summary Mild (<50%) stenosis right extracranial internal carotid. Mild (<50%) stenosis left extracranial internal carotid. Patent and antegrade vertebrals bilaterally. Ordering Physician: Dung Vizcaino Performed By: Alf Arzola RVT Echocardiogram 01/06/25 11:25 Interpretation Summary The left ventricular ejection fraction is 70 %. Normal LV size. Stage 1 diastolic dysfunction. Aortic sclerosis, no stenosis. Small (<1.0 cm) pericardial effusion. There are no echocardiographic indications of cardiac tamponade. Ordering Physician: Dung Vizcaino Referring Physician: Sherley Farrar Performed By: Marilee Finnegan RDCS Physical Exam Narrative General: The patient appears nutritionally appropriate, well-groomed, and appears comfortable in no acute distress. Mental Status:? The patient?s mental status was normal including orientation.? Language was intact.? Cranial nerves:? Visual hernandez full, and extra-ocular motion was intact. Mild left facial droop. Motor: Noticed to have drift in left UE and left LE. Normal strength in RUE and RLE Sensation: Intact to touch in all extremities.? Coordination:? Bilateral finger to nose was normal.? There was no dysmetria. Gait:? deferred. NIHSS NIHSS Nursing Documentation NIHSS Nursing Documentation: NIHSS: Ischemic Stroke/TIA Start: 01/06/25 11:25 Text: For PCU Patients: NIH and Neuro Check every 4 Status: Active hours, PRN and with change in RN caregiver. Freq: [id number] Protocol: Activity Type Activity Date Activity User E-sign Co-sign Detail Recorded Client Recorded Date Recorded By Document 01/07/25 11:00 DS [id number] 01/07/25 11:59 DS 01/07/25 11:00 NIH Stroke Scale [NIHSS] A score of 0 is normal or asymptomatic . Total possible score is 42. Inpatient: RN or Physician to activate a stroke alert for onset of new stroke symptoms or with NIHSS increase >/= 3 points. Following change in neurological status, NIHSS will be performed per physician order or more frequently PRN. -1a. Level of Consciousness 0 - Alert; keenly responsive -1b. LOC Questions 0 - Answers BOTH questions correctly -1c. LOC Commands 0 - Performs BOTH tasks correctly -2. Best Gaze 0 - Normal -3. Visual 0 - No visual loss -4. Facial Palsy 1 - Minor paralysis ( flattened nasolabial fold , asymmetry on smiling) -5a. Left Arm 0 - No drift; arm holds 90 ( or 45) degrees for full 10 seconds -5b. Right Arm 0 - No drift; arm holds 90 ( or 45) degrees for full 10 seconds -6a. Left Leg 0 - No drift; leg holds 30- degree position for full 5 seconds -6b. Right Leg 0 - No drift; leg holds 30- degree position for full 5 seconds -7. Limb Ataxia 1 - Present in 1 limb -8. Sensory 0 - Normal; no sensory loss -9. Best Language 0 - No aphasia; normal -10. Dysarthria 1 = Mild-to- moderate dysarthria; -11. Extinction and Inattention 0 - No abnormality -Total 3 Query Text:A score of 0 is normal or asymptomatic. Total possible score is 42 . ED: Notify Physician for NIHSS increase by > / = 3 points. Inpatient: RN or Physician to activate a stroke alert for NIHSS increase of > / = 3 points. Coma Scale [Assess] -Eye Opening Spontaneous -Motor Obeys Commands -Verbal Oriented [Total] -Coma Scale Total 15 NIHSS 1a. Level of Consciousness: 0 - Alert; keenly responsive 1b. LOC Questions: 0 - Answers BOTH questions correctly 1c. LOC Commands: 0 - Performs BOTH tasks correctly 2. Best Gaze: 0 - Normal 3. Visual: 0 - No visual loss 4. Facial Palsy: 1 - Minor paralysis (flattened nasolabial fold, asymmetry on smiling) 5a. Left Arm: 1 - Drift; arm drifts downward but doesn?t hit the bed 5b. Right Arm: 0 - No drift; arm holds 90 (or 45) degrees for full 10 seconds 6a. Left Le - Drift; leg falls by the end of 5-seconds, but does not hit bed 6b. Right Le - No drift; leg holds 30-degree position for full 5 seconds 7. Limb Ataxia: 0 - Absent 8. Sensory: 0 - Normal; no sensory loss 9. Best Language: 0 - No aphasia; normal 10. Dysarthria: 0 - Normal 11. Extinction and Inattention: 0 - No abnormality Total: 3
== END 2025-01-07 13:33 | DRG 64 ==
LOC: ED 10:13 → PCU 10:53
PROVIDERS: Admitting Provider Family Medicine; Emergency Provider Emergency Medicine; PCP Internal Medicine; Visit Provider Family Medicine
DX: I63.511 Cerebral infarction due to unspecified occlusion or stenosis of right middle cerebral artery (principal); G93.6 Cerebral edema; I31.39 Other pericardial effusion (noninflammatory); J44.9 Chronic obstructive pulmonary disease, unspecified; I10 Essential (primary) hypertension; I65.23 Occlusion and stenosis of bilateral carotid arteries; E78.00 Pure hypercholesterolemia, unspecified; K21.9 Gastro-esophageal reflux disease without esophagitis; I25.10 Atherosclerotic heart disease of native coronary artery without angina pectoris; I25.2 Old myocardial infarction; F17.210 Nicotine dependence, cigarettes, uncomplicated; R29.706 NIHSS score 6; R29.898 Other symptoms and signs involving the musculoskeletal system; Z79.899 Other long term (current) drug therapy; Z79.82 Long term (current) use of aspirin; Z79.02 Long term (current) use of antithrombotics/antiplatelets; M81.0 Age-related osteoporosis without current pathological fracture
CPT/HCPCS: 36415; 70450; 70496; 70498; 70551; 71045; 80048; 80061; 82962; 84484; 85025; 85610; 85730; 92610; 93005; 93306; 93880; 94762; 97163; 97167; 97802; 99285; Q9967; A4216

== ENCOUNTER 2025-01-07 13:56 | Inpatient (IN) | payer MEDICARE, OTHER, SELFPAY ==
[2025-01-07 14:13] VITALS: BP 118/80; PULSE 75; RESP 18; TEMP 37.4; O2SAT 94; BMI 24.3
--- NOTE | 2025-01-07 15:18 | EX.PCM.HP.RE ---
HPI - General General Date of Admission: 01/07/25 Date of Service: 01/07/25 Chief Complaint: Post stroke debility HPI Narrative JADEN MOORE, is a 69 YO F with a past medical history of hyperlipidemia (was on Atorvastatin 20 mg but, recently increased to 40.....just a couple weeks prior to stroke), coronary artery disease (suspected- saw a clinical documentation improvement specialist for calcifications in the heart and had an order for a nuclear stress but, had a stroke before it could be done), hypertension, GERD, COPD, osteoporosis (did not tolerate Alendronate and was placed on Reclast she thinks) and tobacco dependence in remission (quit in July of 2023) who presented to the emergency department at [facility] on 01/06/2025 complaining of left facial droop, left arm weakness and left leg weakness. Symptoms had started the prior day at approximately 2 PM. NIHSS score in the emergency department was 5. Stat noncontrast CT brain showed focal area of decreased attenuation in the posterior right parietal lobe extending to the right temporal lobe. There was a punctate calcified density in the right sylvian fissure. 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 She was not a candidate for a thrombolytic because her symptoms were present for greater than 12 hours. Teleneurology was consulted and recommended dual antiplatelet agents with aspirin and Plavix, and a statin and completion of a thorough stroke workup. She was admitted to the hospitalist service. Transthoracic echocardiogram showed left ventricular ejection fraction of 70% with stage I diastolic dysfunction and no wall motion abnormalities. Both atria were of normal size. Pulmonary artery systolic pressure was estimated at 28. There was aortic sclerosis with no stenosis. There was a small, less than 1 cm, pericardial effusion with no evidence of tamponade. MRI brain showed acute ischemia in the right insular cortex and parietal lobe with no hemorrhage. There were chronic changes of microvascular ischemia including the frontal and parietal lobes and the kam. There was a small mass immediately posterior to the dens, right of midline with mild mass effect on the caudal medulla. A nonemergent dedicated MRI with contrast was recommended by radiology. A carotid ultrasound showed mild stenosis of the right extracranial internal carotid and mild stenosis of the left extracranial internal carotid and both were estimated to be less than 50%. There were patent and antegrade vertebrals bilaterally. Troponins were negative. Triglycerides were 56 and the total cholesterol was 148. The LDL was 73 and the HDL was 63. TSH, liver panel and hemoglobin A1c were not checked. She was transferred to the acute inpatient rehab unit at [facility] on 3124 for 3 hours of therapy daily to restore function/independence at or near her level prior to admission. She recently had a CT of her chest and was referred to a clinical documentation improvement specialist because she had coronary calcifications and a pericardial effusion. She has also been having CP/chest pressure with walking and stair climbing that gets better with sitting down. She feels her heart racing with the pain. She also has racing heart and lightheadedness while sitting down at times. Both her mother ans sister have thyroid disease. Her father had a heart operation......she does not know if it was a CABG. COUNT INCLUDES THE [facility] Medical History (Updated 01/10/25 @ 11:[address] Shari Tolbert DO) COPD (chronic obstructive pulmonary disease) Family history of thyroid disease GERD (gastroesophageal reflux disease) Tobacco dependence in remission Osteoporosis Coronary artery calcification of [place] artery Stroke/cerebrovascular accident High cholesterol Hypertension Home Medications ?Medication ?Instructions ?Recorded ?Last Taken ?Type amlodipine 5 mg tablet 5 mg PO DAILY blood pressure 01/06/25 Unknown History calcium 600 mg (as 1 tab PO DAILY supplement 01/06/25 Unknown History carbonate)-vitamin D3 20 mcg (800 unit) tablet (Caltrate with Vitamin D3) losartan 50 mg tablet 50 mg PO DAILY blood pressure 01/06/25 Unknown History omeprazole 20 mg capsule,delayed 20 mg PO DAILY gerd 01/06/25 Unknown History release aspirin 81 mg chewable tablet 81 mg PO BREAKFAST stroke 30 days 01/07/25 Unknown Rx #30 tabs atorvastatin 80 mg tablet 80 mg PO QHS cholesterol 30 days 01/07/25 Unknown Rx #30 tabs clopidogrel 75 mg tablet (Plavix) 75 mg PO DAILY blood thinner 90 01/07/25 Unknown Rx days #90 tabs Allergy/AdvReac Type Severity Reaction Status Date / Time No Known Allergies Allergy Verified 06/13/14 09:40 Family History Maternal Grandmother CVA (cerebral vascular accident) Sister Thyroid disorder Mother Thyroid disorder Other Cancer Diabetes Heart disease Surgical History (Updated 01/07/25 @ 17:[address] Shari Tolbert DO) History of breast biopsy H/O tubal ligation History of tonsillectomy and adenoidectomy H/O section Social History (Updated 01/07/25 @ 17:[address] Shari Tolbert DO) household members: spouse and other details: 's name is Momo housing: house number of children: 2 current occupational status: retired Smoking Status: Former smoker Tobacco: How many years used: 40 how long ago did patient quit smoking: She quit smoking in July 2023 alcohol intake: current alcohol intake frequency: holidays/special occasions only ROS Constitutional Constitutional: Reports chills, difficulty sleeping and weakness; Denies anorexia, change in weight, daytime sleepiness, fatigue, fever(s), night sweats or weight loss Eyes Eyes: Denies blurry vision, change in vision, diplopia, discharge from eye(s), eye pain or loss of vision ENT HEENT: Reports dysphagia; Denies abnormal hearing, headache(s), hearing loss, nasal congestion or sore throat Cardiovascular Cardiovascular: Reports chest pain, dyspnea on exertion, lightheadedness, palpitations and racing heartbeat; Denies edema, orthopnea, paroxysmal nocturnal dyspnea, pedal edema or syncope Respiratory/Chest Respiratory/Chest: Reports cough, dyspnea, shortness of breath at rest, shortness of breath with exertion and other Details: Has COPD and uses a Trelegy inhaler and also has a rescue inhaler. ; Denies hemoptysis or wheezing Gastrointestinal Gastrointestinal: Reports heartburn; Denies abdominal pain, constipation, diarrhea, dyspepsia, hematemesis, hematochezia, nausea or vomiting Genitourinary Genitourinary: Denies dysuria, hematuria, nocturia, urinary frequency, urinary hesitancy, urinary incontinence or urinary urgency Musculoskeletal Musculoskeletal: Denies back pain, joint pain, joint swelling or neck pain Integumentary Integumentary: Denies jaundice or rash Neurologic Neurologic: Reports dizziness, focal weakness and other Details: She gets lightheaded/dizzy when her heart is racing. Also complaining of having altered thought processes since the stroke. ; Denies confusion, disequilibrium, headache(s), paresthesias, seizures, tremor(s) or vertigo Psychiatric Psychiatric: Reports difficulty concentrating; Denies anxiety, depression, homicidal ideation, hopelessness or suicidal ideation Endocrine Endocrinology: Denies change in body appearance, polydipsia or polyuria Hematologic/Lymphatic Hematologic/Lymphatic: Denies easy bleeding, easy bruising or lymphadenopathy Allergic/Immunologic Allergic/Immunologic: Denies rhinitis, eczemia or asthma Vital Signs Vital Signs Vital Signs: 01/07/25 14:13 Temperature 99.4 F H Temperature Source Temporal Pulse Rate 75 Respiratory Rate 18 Blood Pressure 118/80 Blood Pressure Mean 92 Blood Pressure Source Monitor Blood Pressure Position Semi-Fowlers Blood Pressure Location Right Arm Pulse Ox 94 Oxygen Delivery Method Room Air Weight Weight: 133 lb 2.547 oz Body Mass Index (BMI) 24.3 Indicators for Scoring Admitted with or Primary Diagnosis of CVA/Stroke: Yes Hx of CVA/Stroke: No Modified [place] Score MRS Score at time of Evaluation: 2-Slight disability NIHSS NIHSS 1a. Level of Consciousness: 0 - Alert; keenly responsive 1b. LOC Questions: 0 - Answers BOTH questions correctly 1c. LOC Commands: 0 - Performs BOTH tasks correctly 2. Best Gaze: 0 - Normal 3. Visual: 0 - No visual loss 4. Facial Palsy: 2 - Partial paralysis (total or near-total paralysis of lower face) 5a. Left Arm: 1 - Drift; arm drifts downward but doesn?t hit the bed 5b. Right Arm: 0 - No drift; arm holds 90 (or 45) degrees for full 10 seconds 6a. Left Le - Drift; leg falls by the end of 5-seconds, but does not hit bed (minimal drift at the end of 5 sec. ) 6b. Right Le - No drift; leg holds 30-degree position for full 5 seconds 7. Limb Ataxia: 1 - Present in 1 limb (LUE......some this may be due to weakness. No ataxia with the LLE) 8. Sensory: 0 - Normal; no sensory loss 9. Best Language: 0 - No aphasia; normal 10. Dysarthria: 1 = [id number] dysarthria; 11. Extinction and Inattention: 0 - No abnormality Total: 6 Stroke Questions Stroke Team Activated: No Physical Exam Const alert, oriented x3, no apparent distress, average body habitus and well nourished Constitutional Narrative: Lying in bed resting when I entered the room General Appearance: cooperative and well developed HEENT normocephalic, head/scalp atraumatic and hearing grossly normal bilaterally HEENT Narrative: Dry mucous membranes. Narrow mouth with a high palate. tongue protrudes on the midline. Head and Scalp: Negative for cyanosis of lips/distal nose Eyes PERRL, EOMs intact bilaterally, conjunctivae normal and no scleral icterus Eyes Narrative: No discharge from the eyes and no mattering of the eyelashes. No visual field cuts. No nystagmus. General Eye: normal appearance of both eyes Neck supple, No nodes and no carotid bruits General: trachea midline Chest Chest: symmetrical chest wall rise Resp Resp Narrative: Very diminished breath sounds throughout, especially in the upper lobes. No wheezing. Few crackles in the left base which are coarse. RR is mildly increased and she has mild conversational dyspnea. No clubbing of the nails Effort and Inspection: able to speak in complete sentences Cardio regular rate, regular rhythm, S1 normal heart sound, S2 normal heart sound, no murmurs, no rub and no gallops Cardio Narrative: No ectopy GI GI Narrative: the abd is mildly distended and tympanic. No guarding with palpation, good BS's in all quadrants. No rebound. non-tender. no CVA tenderness Back/Spine Back/Spine Narrative: + kyphosis Extremity no calf tenderness and no pedal edema Extremity Narrative: No clubbing or cyanosis. Peripheral Pulses: Yes pulses 2+ throughout Skin no jaundice Skin Narrative: Has bruising/petechiae on extremities.....suspect due to blood draws/IV's General Skin Exam: no breakdown Rashes: no rashes Neuro Neuro Narrative: Alert, having some difficulty figuring out how to bring up MyChart on her phone. Acknowledges that she has been slower thinking since the stroke. Able to follow simple commands. Pupils are equal round and reactive to light and accommodation, extraocular muscles are intact. Marked left facial droop. Some drooling on the left. Tongue protrudes on the midline. Good shoulder shrug bilaterally. She has a drift with the left upper extremity but it does not touch the bed. She has either mild ataxia or trouble with finger-nose secondary to weakness. 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 She is right-hand dominant. No drift with either lower extremity. No ataxia with the lower extremities. Mild dysarthria. She was able to name all the pictures on the NIHSS scoring chart. No aphasia. No extinction. No sensory loss to pinprick. Psych cooperative, affect normal, denies hallucinations and denies suicidal ideation Psych Narrative: Having trouble sleeping at night. Appearance: grossly normal, appropriate and well kempt Attitude: calm and engaged Activity / Motor Behavior: appropriate eye contact Speech: normal speech Results Lab / Micro Data 01/08/25 06:11 01/10/25 05:17 Assessment & Plan Assessment/Plan (1) Debility: (2) Ischemic cerebrovascular accident (CVA): (3) Dysphagia due to recent cerebral infarction: (4) Left leg numbness: (5) Facial droop due to stroke: (6) Left arm weakness: (7) Hypertension: QUALIFIERS: Hypertension type: primary hypertension Qualified Code(s): I10 - Essential (primary) hypertension (8) High cholesterol: (9) Coronary artery calcification of [place] artery: (10) Osteoporosis: QUALIFIERS: Osteoporosis type: unspecified Presence of current pathological fracture: without current pathological fracture Qualified Code(s): M81.0 - Age-related osteoporosis without current pathological fracture (11) COPD (chronic obstructive pulmonary disease): QUALIFIERS: COPD type: unspecified COPD Qualified Code(s): J44.9 - Chronic obstructive pulmonary disease, unspecified (12) Grade I diastolic dysfunction: (13) GERD (gastroesophageal reflux disease): QUALIFIERS: Esophagitis presence: without esophagitis Qualified Code(s): K21.9 - Gastro-esophageal reflux disease without esophagitis (14) Tobacco dependence in remission: PLAN: Quit July of 2023 PLAN: Plan PLAN PT for gait stability OT for ADL's ST for evaluation Analgesics as needed Bowel protocol Fall precautions Assess for Anxiety/Depression GI prophylaxis -pantoprazole 20 mg daily DVT prophylaxis with Lovenox 40 mg subcu daily Follow up with PCP, cardiology, pulmonary medicine, neurology following DC from IP Rehab AM lab including CMP, CBC, Mag, Phos, TSH, T4, hemoglobin A1c PA and lateral chest x-ray Will need a 30-day event monitor at discharge from rehab As needed sublingual nitroglycerin for chest heaviness associated with shortness of breath Discontinue losartan and amlodipine and start metoprolol XL 25 mg daily in the AM........ I am very suspicious that she has coronary artery disease and she may be having angina. She has known coronary calcifications and multiple risk factors for coronary artery disease. She has significant COPD and review of the chest x-ray from 2015 shows marked flattening of both diaphragms and hyperinflation. Shortness of breath and chest heaviness with walking and stair climbing may be due to COPD, coronary artery disease or more likely than not a combination of the 2. Charges/Coding Visit Charges Inpatient E&M: 00289 Init Hosp L3
--- NOTE | 2025-01-07 16:50 | EKG12_ITS ---
Test Reason : CP Blood Pressure : */* mmHG Vent. Rate : 71 BPM Atrial Rate : 71 BPM P-R Int : 196 ms QRS Dur : 78 ms QT Int : 386 ms P-R-T Axes : 63 55 59 degrees QTcB Int : 419 ms Normal sinus rhythm Normal ECG When compared with ECG of 06-Jan-2025 09:31, MANUAL COMPARISON REQUIRED DATA IS UNCONFIRMED Confirmed by BRETT BURR, YAMILETH ([id number]), editorial clerk VICENTE MARTINS ([id number]) on 01/10/2025 6:31:42 AM Referred By: Shari Tolbert Confirmed By: YAMILETH WEST MD
--- NOTE | 2025-01-07 17:00 | NURSING ---
Patient, , and family aware of rehab routine and visiting hours.
--- NOTE | 2025-01-07 17:35 | RAD_ITS ---
PROCEDURE: CHEST PA AND LATERAL 01/07/2025 REASON FOR EXAM: COUGH/FEVER/POSSIBLE ASPIRATION TECHNIQUE: Procedure Code: RADCXR Modality: DX Procedure: CHEST PA AND LATERAL COMPARISON: CT scan on 01/07/2025. FINDINGS: Interval appearance of mild bilateral basilar atelectatic changes/infiltrates. There is no demonstrated pleural abnormality. Enlarged cardiac silhouette. Normal mediastinum and contreras. Normal visualized pulmonary arteries. Atheromatous plaques of the visualized aortic arch and descending thoracic aorta. Diffuse spondylosis of the visualized thoracic spine. Normal visualized ribs, clavicles. Degenerative joint disease. There is no demonstrated abnormality of the visualized soft tissue structures of the upper abdomen. RAD/Chest PA and Lateral IMPRESSION: Interval appearance of mild bilateral basilar atelectatic changes/infiltrates. Reading Location[facility]
[2025-01-07 17:50] VITALS: O2SAT 97
--- NOTE | 2025-01-07 17:56 | CT_ITS ---
PROCEDURE: CHEST WITHOUT CONTRAST 01/07/2025 REASON FOR EXAM: COUGH/SOB/POSSIBLE ASPIRATION TECHNIQUE: Chest CT without contrast. Coronal and Sagittal reconstruction series were provided. One or more dose reduction techniques were used (e.g., Automated exposure control, adjustment of the mA and/or kV according to patient size, use of iterative reconstruction technique RADIATION DOSE SUMMARY: CTDlvol: 6.9 mGy DLP: 236 mGycm FINDINGS: Moderate centrilobular emphysema bilaterally. No discrete pulmonary mass. No abnormal pulmonary consolidation. No axillary mass. Marginal thoracic aortic calcification. Minimal pericardial fluid. Upper abdomen unremarkable. CT/Chest without Contrast IMPRESSION: Coronary artery calcification (CAC) is moderate Emphysema. No acute abnormality. Reading [facility]
[2025-01-07 18:00] VITALS: BP 143/81; PULSE 72; RESP 17; TEMP 36.4; O2SAT 96
[2025-01-07] MEDS: Calcium Carb/Vitamin D 1 TABLET Tablet PO (18:07)
[2025-01-07 18:23] VITALS: O2SAT 94
[2025-01-07 21:55] VITALS: PULSE 72; O2SAT 91
[2025-01-07 22:15] VITALS: O2SAT 96
[2025-01-07] MEDS: MELATONIN 3 MG TABLET PO (22:19)
[2025-01-07] MEDS: Fluticasone/Salmeterol 232-14 Inhaler 1 PUFF INHALATION (22:19)
[2025-01-08] VITALS (10 sets, daily range): BP systolic 128–186; BP diastolic 61–90; PULSE 59–76; RESP 17–18; TEMP 36.8–36.9; O2SAT 93–96
[2025-01-08 06:18] LABS: Hematocrit 34.6 % (37-47); Hemoglobin 11.8 g/dL (12.0-15.0); Mean Corp Hgb Conc 34.1 g/dL (32-36); Mean Corpuscular Volume 87.8 fL (81-99); Mean Platelet Vol. 8.9 fl (6.2-12.0); Platelet Count 298 K/mm3 (150-450); RBC Distribution Width CV 12.7 % (11.6-14.6); RBC Distribution Width SD 40.8 fl (35.1-43.9); Red Blood Count 3.94 M/mm3 (4.2-5.4); White Blood Count 6.3 K/mm3 (4.4-11.0)
--- NOTE | 2025-01-08 07:30 | NURSING ---
Night nurse reported patient had a bladder scan over 300cc and she was unable to straight cath her. This nurse attempted and also unable. Patient has anxiety even though procedure explained by multiple nurses. Unable to straight cath due to difficult anatomy of her urethra. Patient agreed to sit on the BSC and able to void 100cc more. Will monitor.
[2025-01-08 07:57] LABS: AST(SGOT) 23 U/L (<=31); Alanine Aminotransfer ALT/SGPT 21 U/L (<=34); Albumin, Serum 3.8 g/dL (3.4-4.8); Alkaline Phosphatase 66 U/L (35-104); Anion Gap 9 (5-15); BUN 18 mg/dL (4-19); BUN/Creat Ratio 32.9 RATIO (10-20); Calcium,Total 9.4 mg/dL (7.6-11.0); Carbon Dioxide 21.5 mmol/L (21.0-32.0); Chloride 107 mmol/L (98-108); Estimated Creatinine Clearance 56.81 ml/min (50-250); Globulin 2.6 g/dL (2.2-4.2); Glucose 98 mg/dL (70-99); Magnesium 2.0 mg/dL (1.5-2.2); Potassium 3.7 mmol/L (3.3-5.1)
[2025-01-08 08:05] LABS: Vitamin D,25 Hydroxy 34.4 ng/mL (30-100)
[2025-01-08] MEDS: Calcium Carb/Vitamin D 1 TABLET Tablet PO ×2 (08:32→16:00)
[2025-01-08] MEDS: Metoprolol(XL)Succ 25 MG Tablet PO ×2 (08:33→16:00)
[2025-01-08] MEDS: Umeclidinium Bromide Inhaler 1 PUFF INHALATION (08:33)
[2025-01-08] MEDS: Fluticasone/Salmeterol 232-14 Inhaler 1 PUFF INHALATION ×2 (08:33→21:53)
[2025-01-08] MEDS: Senna/Docusate Sodium 1 Tablet 2 TABLET PO ×2 (08:38→21:53)
[2025-01-08] MEDS: Lidocaine 5% Patch 1 PATCH TOPICAL (11:02)
--- NOTE | 2025-01-08 14:00 | NURSING ---
Addendum entered by Divine Botello 01/08/25 14:41: Correction, patient voiced not voided no discomfort Original Note: Patient has c/o on and off today of left sided pain. Aware that xray done yesterday showed no abnormalities. Patient reported when her son grabbed her when she fell at home and put her in the car and she hurt from that. On admit yesterday, patient voided no discomfort to this area. Patient has been drinking water very poor today, claiming the water makes her cough and hurts her left side, which in return is causing her voiding to be non sufficient. At this time, patient still has some retention and refusing to be straight cathed. Will monitor. Fluids encouraged.
--- NOTE | 2025-01-08 19:06 | NURSING ---
Patient's BP has improved some, still positive for pain to left side with prn ultram and repositioning. Dr. Tolbert aware. Will monitor.
[2025-01-08] MEDS: MELATONIN 3 MG TABLET PO (21:53)
--- NOTE | 2025-01-09 01:38 | NURSING ---
0130 am; Pt bladder scan 440. Pt urinated 100 mls this mary and only urinated dribbles at 0130. Denies abdominal discomfort. Nursing attempted to straight cath pt this am x2 unsuccessfully. Pt anatomy difficult to observe, At 0135 supervisor concrete stone finishing Zonia attempted to cath pt and was unsuccessful. Will continue to monitor pt. Survey Rodman state it pt becomes uncomfortable or is uncomfortable an ER nurse will come up to attempt catherization on pt.
[2025-01-09 05:31] VITALS: BP 142/83; PULSE 55; RESP 18; TEMP 36.3; O2SAT 97
[2025-01-09] MEDS: Fluticasone/Salmeterol 232-14 Inhaler 1 PUFF INHALATION ×2 (08:30→21:51)
[2025-01-09] MEDS: Umeclidinium Bromide Inhaler 1 PUFF INHALATION (08:31)
[2025-01-09] MEDS: Lidocaine 5% Patch 1 PATCH TOPICAL (08:34)
[2025-01-09 08:36] VITALS: BP 127/64; PULSE 56
[2025-01-09] MEDS: Metoprolol(XL)Succ 50 MG Tablet PO (08:36)
[2025-01-09] MEDS: Calcium Carb/Vitamin D 1 TABLET Tablet PO ×2 (08:37→17:27)
[2025-01-09] MEDS: Senna/Docusate Sodium 1 Tablet 2 TABLET PO ×2 (08:37→21:53)
[2025-01-09 13:21] VITALS: BP 138/73; PULSE 61
[2025-01-09 17:51] VITALS: BP 150/80; PULSE 63; RESP 17; TEMP 36.7; O2SAT 98
--- NOTE | 2025-01-09 18:50 | NURSING ---
BS x 4, no discomfort, patient refused laxative when offered several times today and she reports she feels like she will have a BM soon. Will monitor.
[2025-01-09] MEDS: MELATONIN 3 MG TABLET PO (21:52)
[2025-01-09 22:00] VITALS: BP 139/81; PULSE 47; RESP 17; TEMP 37.1; O2SAT 93
[2025-01-10] VITALS (7 sets, daily range): BP systolic 124–151; BP diastolic 70–82; PULSE 52–60; RESP 15–18; TEMP 36.4; O2SAT 92–98; BMI 24.3
[2025-01-10 06:14] LABS: Anion Gap 9 (5-15); BUN 15 mg/dL (4-19); BUN/Creat Ratio 19.9 RATIO (10-20); Calcium,Total 9.2 mg/dL (7.6-11.0); Carbon Dioxide 24.2 mmol/L (21.0-32.0); Chloride 101 mmol/L (98-108); Estimated Creatinine Clearance 56.81 ml/min (50-250); Glucose 102 mg/dL (70-99); Potassium 3.7 mmol/L (3.3-5.1)
[2025-01-10] MEDS: Umeclidinium Bromide Inhaler 1 PUFF INHALATION (07:50)
[2025-01-10] MEDS: Fluticasone/Salmeterol 232-14 Inhaler 1 PUFF INHALATION ×2 (07:50→21:42)
[2025-01-10] MEDS: Calcium Carb/Vitamin D 1 TABLET Tablet PO ×2 (07:51→17:34)
[2025-01-10] MEDS: Lidocaine 5% Patch 1 PATCH TOPICAL (07:51)
[2025-01-10] MEDS: Senna/Docusate Sodium 1 Tablet 2 TABLET PO ×2 (07:52→21:44)
--- NOTE | 2025-01-10 08:00 | US_ITS ---
PROCEDURE: KIDNEY AND BLADDER 01/10/2025 REASON FOR EXAM: URINARY RETENTION TECHNIQUE: Procedure Code: USKI Modality: US Procedure: KIDNEY AND BLADDER COMPARISON: None FINDINGS: Kidneys: Normal renal sizes, parenchymal thicknesses, and echotextures. [place]: No hydronephrosis. Cysts or Masses: No cysts or masses are seen. Other: None RIGHT Kidney Size: 11.8 cm x 5.2 cm x 4.2 cm Cortical Thickness (if discernible): 13 mm (>6mm is normal) LEFT Kidney Size: 11.1 cm x 4.7 cm x 5.4 cm Cortical Thickness (if discernible): 19 mm (>6mm is normal) Urinary bladder: Prevoid volume: 360 mL. Postvoid volume: 253 mL. US/Kidney and Bladder IMPRESSION: Unremarkable examination of the kidneys. Postvoid residual. Reading Location: [id number]
--- NOTE | 2025-01-10 09:20 | RAD_ITS ---
PROCEDURE: ABDOMEN SINGLE VIEW 01/10/2025 REASON FOR EXAM: CONSTIPATION TECHNIQUE: Procedure Code: RADABD Modality: DX Procedure: ABDOMEN SINGLE VIEW COMPARISON: None FINDINGS: Bowel gas: Stool is present in the nondistended ascending colon and a minimal amount in the rectum. Bowel is not distended Calcifications: Pelvic phleboliths Bones: No organomegaly Other: Tubal ligation clips are seen bilaterally. RAD/Abdomen Single View IMPRESSION: Stool burden is not excessive. Moderate amount of stool on the right side. Reading Location: [id number]
[2025-01-10] MEDS: Metoprolol(XL)Succ 50 MG Tablet PO (10:32)
--- NOTE | 2025-01-10 11:18 | PCM.RU.PYE ---
Admission Information Primary Diagnosis:: Poststroke debility Status Changes from Prescreening?: No changes Identified Actual Problem List:: Aspiration, Pain, ALteration in Cmfrt, Bowel, Constipation, Alteration in Sleep, Mobility Impaired, Self Care Deficit, Know.Dfct/Disease Process, BP, Hypertension, Alteration/ Air Exchange and Alteration-Leisure Activ. Potential Problem List:: DVT, Bleeding, Infection, UTI, Aspiration, Falls, Skin Integrity and Depression Risk of Complications DVT: LMWH and VICKI Hose Bleeding: Monitor Lab Values, Nursing to Teach Precautions for anti-coagulation therapy., Wound, if applicable, to be assessed every shift. and Stroke patients assessed for lethargy or change in status. Infection: Clinical Staff to Monitor for S/S of infection: and S/S of infection include fever, redness, warmth, etc. Urinary Tract Infection: Monitor for frequency, burning, discomfort, or incontinence. and Nursing will obtain urine sample for urinalysis and C&S when ordered. Aspiration: Clinical staff will monitor for coughing, drooling, congestion., Speech will evaluate swallowing and dsyphasia. and Nursing will monitor patient swallowing during meals. Falls: Patient will be evaluated for Fall Precautions and Patient will be placed on Fall Precautions as indicated per protocol. Skin Breakdown: Nursing will assess skin daily using assessment tool. and Nursing will place on Skin Breakdown Precautions as indicated. Pain: Clinical staff will assess patient's pain level per protocol., Medications will be given, if needed, and the pain level reassessed. and Other methods: Massage, distraction, decrease stimulus, etc. used PRN. Plan of Care Patient requires physician specializing in physical medicine and rehab oversight to provide close medical supervision of rehab issues including: Pain Management, Sleep Problems, Bowel and Bladder, Medical and co-morbidity Management, DVT prophylaxis, Rehabilitation Leadership and Coordination of treatment team Patient needs Physical Therapy: For a minimum of 1 hour and At least 5 out of 7 days Patient needs Physical Therapy to improve:: Mobility, Strengthening, Transfers, Stretching, ROM, Endurance, Stairs, Gait and Balance Patient needs Occupational Therapy: For a minimum of 1 hour and At least 5 out of 7 days Patient needs Occupational Therapy to improve ADL's incl.: Eating, Grooming, Bathing, Dressing, Toileting, Toilet transfers, Community Reintegration, Higher functioning activities, Household tasks, Adaptive Equipment, Splinting and Other activities as determined Patient requires speech therapy: For a minimum of 1 hour and At least 5 out of 7 days Patient requires speech therapy for: Swallowing, Cognition, Language Skills and Compensatory Strategies Patient requires 24/ Rehabilitation Nursing for: Pain Issues, Identifying and preventing risk factors, Monitoring and reporting current medical conditions, Assisting with ambulation, transfer, and all ADL's, Teaching patients about disease process and medications, Family teaching, Providing safe environment, Bowel and Bladder Issues, Skin integrity and Medication Management Patient needs Barrel Endshake Adjuster/ Case Management for: Discharge Planning, Arranging Home Equipment or Services and Family Interventions Patient needs Dietary and Nutrition Services for: Adequate Nutrition, Nutritional Supplements and Nutritional Education Goals Goals Patient will remain: free from falls Patient will perform eating at: MOD I level of assist. Patient will perform bed mobility at: MOD I level of assist. Patient will complete transfers from bed to chair at: MOD I level of assist. (Mod I with a front wheeled walker) Patient will ambulate: - (150 feet with a front wheeled walker at supervision to mod I) Patient will complete upper body dressing at: MOD I level of assist. Patient will complete lower body dressing at: MOD I level of assist. (With adaptive equipment as needed) Patient will complete toilet transfer at: MOD I level of assist. Patient will complete toileting at: MOD I level of assist. Patient will perform bathing at: MOD I level of assist. Patient will perform Tub/Shower transfer at: - (Supervision) Patient will complete grooming at: MOD I level of assist. Patient will achieve: - (One-step without a handrail using a front wheeled walker at standby assist/supervision with no cueing) Patient will have pain level of: of 3 or less Patient's skin will: remain intact Patient will receive: adequate nutrition. Discharge Planning Pt Prognosis for Sig. Practical Improv. w/in Reasonable Time: Good Estimated Length of stay (days): 21 Anticipated D/C Destination: Home with Outpt Therapy Was Preadmission Assessment Accurate?: Yes
--- NOTE | 2025-01-10 11:24 | PCM.PROGNOTE ---
Subjective Subjective Afebrile VSS -blood pressure in the past 24 hours has ranged from 124/78 to 150/80. BP on Friday was increased significantly. Metoprolol XL was increased to 50 mg daily. Heart rate over the past 24 hours ranged from 47-63. Maintaining appropriate oxygen saturation on RA Oral intake - FOOD appetite has improved since admission and she has eaten 75 to 100% of her last 4 meals. FLUIDS fair Discussed with nursing - no problems that need addressed Reviewed the THERAPY notes Medication list reviewed. She had 3 doses of tramadol yesterday. Has been c/o L rib pain. She is also retaining urine. Nursing tried to insert a Forte cath but, multiple attempts/ different nurses, failed......they tell me that she has distorted anatomy? Postvoid residuals have all been over 200 and the largest was 440. Melatonin was not helpful with insomnia but she tells me that the trazodone worked better. She denies any chest pressure/pain/tightening since admission to rehab. She tells me her breathing is status quo and no worse than normal. She denied dyspnea on exertion with therapy today. She denies dysuria. She denies any prior history of urine retention. Has not had a bowel movement since admission to the hospital per the patient. She has been c/o L rib pain. She tells me her son picked her up by grabbing her around the chest and lifting prior to presenting to the emergency department. The pain in her left ribs increases with deep inspiration. Poor inspiratory effort. She is now on scheduled Tylenol, a lidocaine patch and as needed tramadol. KUB today shows a large amount of stool in the right colon which is nondistended. No significant stool accumulation in the descending colon or rectum. Renal ultrasound shows normal-sized kidneys, normal parenchymal thickness and echotexture's. No hydronephrosis. Urine prevoid volume was 360 and postvoid volume was 253. Objective Data Objective Data Vital Signs: Vital Signs Temp Pulse Resp BP Pulse Ox O2 Del Method FiO2 97.6 F L 60 16 140/72 H 92 Room Air 21 01/10/25 05:36 01/10/25 10:32 01/10/25 05:36 01/10/25 10:00 01/10/25 05:36 01/10/25 05:36 01/07/25 21:55 Oxygen Delivery Method Room Air Weight: 133 lb 2.547 oz Body Mass Index (BMI) 24.3 Intake & Output: Intake and Output for Last 24 Hours 01/08/25 01/09/25 01/10/25 23:59 22:59 23:59 Intake Total 1040 / 1040 1620 / 1620 220 / 220 Output Total 1350 / 1350 1250 / 1250 100 / 100 Balance -310 / -310 370 / 370 120 / 120 Lab / Micro Data 01/08/25 06:11 01/10/25 05:17 Labs: Laboratory Results - last 24 hr 01/10/25 05:17: Sodium 135, Potassium 3.7, Chloride 101, Carbon Dioxide 24.2, Anion Gap 9, BUN 15, Creatinine 0.77, Estim Creat Clear Calc 56.81, Est GFR (MDRD) Non-Af 84, BUN/Creatinine Ratio 19.9, Glucose 102 H, Calcium 9.2 Radiography Diagnostic Testing: Radiology Impression Renal Ultrasound 01/10/25 08:00 IMPRESSION: Unremarkable examination of the kidneys. Postvoid residual. Reading Location: [id number] X-Ray 01/10/25 09:20 IMPRESSION: Stool burden is not excessive. Moderate amount of stool on the right side. Reading Location: [facility] Physical Exam Const alert, oriented x3 and no apparent distress General Appearance: cooperative Resp normal respiratory effort Resp Narrative: Very diminished throughout with no wheezes and no crackles. No conversational dyspnea. Cardio regular rate, regular rhythm and no gallops GI normal to inspection, nondistended, normoactive bowel sounds, soft to palpation and non-tender no CVA tenderness Narrative: The vaginal introitus is stenotic. Mucosa is erythematous and fragile. There is vaginal prolapse present. I am able to insert a pediatric speculum but, pt is uncomfortable with insertion. I am able to visualize the urethra which is located a little to the left of the vaginal opening. Multiple attempts were made to insert a Forte (even tried a cudet) but the catheter kept slipping into the vagina.......suspect she has urethral stenosis. Extremity no calf tenderness General Extremity: Negative for edema Assessment & Plan Assessment/Plan (1) Debility: (2) Ischemic cerebrovascular accident (CVA): (3) Dysphagia due to recent cerebral infarction: (4) Left leg numbness: (5) Facial droop due to stroke: (6) Left arm weakness: (7) Hypertension: QUALIFIERS: Hypertension type: primary hypertension Qualified Code(s): I10 - Essential (primary) hypertension (8) High cholesterol: (9) Coronary artery calcification of [place] artery: (10) Osteoporosis: QUALIFIERS: Osteoporosis type: unspecified Presence of current pathological fracture: without current pathological fracture Qualified Code(s): M81.0 - Age-related osteoporosis without current pathological fracture (11) COPD (chronic obstructive pulmonary disease): QUALIFIERS: COPD type: unspecified COPD Qualified Code(s): J44.9 - Chronic obstructive pulmonary disease, unspecified (12) Grade I diastolic dysfunction: (13) GERD (gastroesophageal reflux disease): QUALIFIERS: Esophagitis presence: without esophagitis Qualified Code(s): K21.9 - Gastro-esophageal reflux disease without esophagitis (14) Tobacco dependence in remission: PLAN: Quit July of 2023 (15) Atrophic vaginitis: (16) Urethral stenosis: (17) Vaping nicotine dependence, non-tobacco product: PLAN: Plan 1. Continue therapy 2. Start vaginal estrogen cream for atrophic vaginitis 3. Start Flomax 0.4 mg daily and continue to check periodic postvoid residuals. She has no hydronephrosis and the kidneys appear normal. 4. Discussed with Dr. Acevedo and she will follow-up with the patient in the office postdischarge from rehab. 5. I reviewed records that we received from her public housing manager and her last visit was 11/24/2024. She has been diagnosed with stage III severe COPD by Gold classification. She continues to vape with nicotine products despite quitting cigarette smoking. She is on triple therapy. Trelegy can cause urine retention however I suspect the problem here is not the Trelegy but urethral stenosis and atrophic vaginitis. Charges/Coding Visit Charges Inpatient E&M: 75236 Subs Hosp L2
--- NOTE | 2025-01-10 13:50 | RAD_ITS ---
PROCEDURE: RIBS UNI MIN 3V W/PA CHEST 01/10/2025 REASON FOR EXAM: PAIN WITH HX OF TRAUMA TECHNIQUE: Procedure Code: RADRIB Modality: DX Procedure: RIBS UNI MIN 3V W/PA CHEST COMPARISON: January 07, 2025 FINDINGS: Findings: The lungs are emphysematous. No consolidation or mass is seen. The heart is mildly enlarged. The aorta knob is atherosclerotic. Other: Biopsy clip is projected over the right breast. Mild contour deformity of the posterolateral left 5th rib. RAD/Ribs Uni Min 3V w/PA Chest IMPRESSION: 1. Emphysema. Cardiac enlargement. 2. Subtle contour deformity posterolateral left 5th rib. This may represent a nondisplaced fracture. Reading Location: [id number]
[2025-01-10] MEDS: MELATONIN 3 MG TABLET PO (21:44)
[2025-01-11 06:00] VITALS: BP 141/71; PULSE 51; RESP 15; TEMP 36.4; O2SAT 93
[2025-01-11] MEDS: Lidocaine 5% Patch 1 PATCH TOPICAL (07:55)
[2025-01-11] MEDS: Fluticasone/Salmeterol 232-14 Inhaler 1 PUFF INHALATION ×2 (07:55→21:34)
[2025-01-11] MEDS: Umeclidinium Bromide Inhaler 1 PUFF INHALATION (07:55)
[2025-01-11] MEDS: Senna/Docusate Sodium 1 Tablet 2 TABLET PO ×2 (07:58→21:33)
[2025-01-11] MEDS: Calcium Carb/Vitamin D 1 TABLET Tablet PO ×2 (07:59→16:24)
[2025-01-11 10:00] VITALS: BP 108/59; PULSE 58
[2025-01-11 10:11] VITALS: PULSE 58
[2025-01-11] MEDS: Metoprolol(XL)Succ 50 MG Tablet PO (10:11)
[2025-01-11 13:55] VITALS: BMI 24.3
--- NOTE | 2025-01-11 16:32 | PCM.PROGNOTE ---
Subjective Subjective Afebrile VSS - Maintaining appropriate oxygen saturation on RA Oral intake - FOOD fair to good FLUIDS fair at best Discussed with nursing - no problems that need addressed Reviewed the THERAPY notes Medication list reviewed. Denies cephalgia, vertigo, lightheadedness, shortness of breath, nausea/vomiting/abdominal pain, dysuria and calf tenderness. She does have some left-sided chest pain and rib x-rays yesterday showed possible nondisplaced fracture of the posterior left fifth rib. Her symptoms are consistent with this. Pain improves with tramadol. Tells me that she had been vaoping nicotine but, she stopped this just prior to admission to the hospital. Objective Data Objective Data Vital Signs: Vital Signs Temp Pulse Resp BP Pulse Ox O2 Del Method FiO2 97.6 F L 58 L 15 108/59 L 93 Room Air 21 01/11/25 06:00 01/11/25 10:11 01/11/25 06:00 01/11/25 10:00 01/11/25 06:00 01/11/25 06:00 01/07/25 21:55 Oxygen Delivery Method Room Air Weight: 133 lb 2.547 oz Body Mass Index (BMI) 24.3 Intake & Output: Intake and Output for Last 24 Hours 01/09/25 01/10/25 01/11/25 22:59 23:59 23:59 Intake Total 1620 / 1620 840 / 1240 940 / 940 Output Total 1250 / 1250 450 / 600 325 / 325 Balance 370 / 370 390 / 640 615 / 615 Lab / Micro Data 01/08/25 06:11 01/10/25 05:17 Physical Exam Const alert, oriented x3 and no apparent distress Constitutional Narrative: lying in bed most of the times I enter her room I have not seen her sitting up in the chair. Resp normal respiratory effort Resp Narrative: Very diminished throughout with no wheezes and no crackles. No conversational dyspnea. Cardio regular rate, regular rhythm and no gallops GI normal to inspection, nondistended, normoactive bowel sounds, soft to palpation and non-tender no CVA tenderness Extremity no calf tenderness General Extremity: Negative for edema Assessment & Plan Assessment/Plan (1) Debility: (2) Ischemic cerebrovascular accident (CVA): (3) Dysphagia due to recent cerebral infarction: (4) Left leg numbness: (5) Facial droop due to stroke: (6) Left arm weakness: (7) Hypertension: QUALIFIERS: Hypertension type: primary hypertension Qualified Code(s): I10 - Essential (primary) hypertension (8) High cholesterol: (9) Coronary artery calcification of [place] artery: (10) Osteoporosis: QUALIFIERS: Osteoporosis type: unspecified Presence of current pathological fracture: without current pathological fracture Qualified Code(s): M81.0 - Age-related osteoporosis without current pathological fracture (11) COPD (chronic obstructive pulmonary disease): QUALIFIERS: COPD type: unspecified COPD Qualified Code(s): J44.9 - Chronic obstructive pulmonary disease, unspecified (12) Grade I diastolic dysfunction: (13) GERD (gastroesophageal reflux disease): QUALIFIERS: Esophagitis presence: without esophagitis Qualified Code(s): K21.9 - Gastro-esophageal reflux disease without esophagitis (14) Tobacco dependence in remission: PLAN: Quit July of 2023 (15) Atrophic vaginitis: (16) Urethral stenosis: (17) Vaping nicotine dependence, non-tobacco product: PLAN: Plan 1. Continue therapy 2. Up in the chair with at least 2 meals a day 3. Encouraged increased fluid intake 4. Using the IS. 5. D/W her the probable ND L 5th rib fx. Will continue Tramadol PRN for pain control and scheduled Tylenol 6. discussed Flu vaccine and she is agreeable. Also recommended she get a Pneumovac if she is due and also a RSV vaccine and COVID vaccine post DC because she is at risk for significant exacerbation of COPD, hospitalization and even intubation if she gets one of these infections. 7. Discussed vaping and the damage to the lungs and advised to avoid this going forward. 8. Measure PVR once a day. Will follow up with Dr. Acevedo post DC from rehab Charges/Coding Visit Charges Inpatient E&M: 39291 Subs Hosp L1
[2025-01-11 17:40] VITALS: BP 147/73; PULSE 53; RESP 18; TEMP 37; O2SAT 96
[2025-01-11 19:33] VITALS: BMI 24.3
[2025-01-11] MEDS: Estrogens,Conj. 1 Tube 1 DOSE VAGINAL (21:33)
[2025-01-11] MEDS: MELATONIN 3 MG TABLET PO (21:33)
[2025-01-12 06:00] VITALS: BP 130/76; PULSE 53; RESP 16; TEMP 36.6; O2SAT 93
[2025-01-12] MEDS: Lidocaine 5% Patch 1 PATCH TOPICAL (07:39)
[2025-01-12] MEDS: Fluticasone/Salmeterol 232-14 Inhaler 1 PUFF INHALATION ×2 (07:39→22:21)
[2025-01-12] MEDS: Calcium Carb/Vitamin D 1 TABLET Tablet PO ×2 (07:40→15:38)
[2025-01-12] MEDS: Umeclidinium Bromide Inhaler 1 PUFF INHALATION (07:40)
[2025-01-12] MEDS: Senna/Docusate Sodium 1 Tablet 2 TABLET PO ×2 (07:41→22:19)
[2025-01-12 07:42] VITALS: BP 130/76; PULSE 56
[2025-01-12] MEDS: Metoprolol(XL)Succ 50 MG Tablet PO (07:42)
[2025-01-12] MEDS: FLU VACCINE HIGH DOSE 25-26(65YR UP) 180 MCG/0.5 ML SYRINGE IM (07:54)
[2025-01-12 10:56] VITALS: BMI 24.3
[2025-01-12 18:00] VITALS: BP 146/96; PULSE 80; RESP 16; TEMP 36.2; O2SAT 94
[2025-01-12] MEDS: MELATONIN 3 MG TABLET PO (22:19)
[2025-01-12] MEDS: Estrogens,Conj. 1 Tube 1 DOSE VAGINAL (22:21)
[2025-01-13] VITALS (7 sets, daily range): BP systolic 124–169; BP diastolic 64–76; PULSE 53–65; RESP 16–20; TEMP 36.5–37.1; O2SAT 93–98; BMI 24.3
--- NOTE | 2025-01-13 00:23 | NURSING ---
Pt. refused to have a soap suds enema this evening.
[2025-01-13] MEDS: Senna/Docusate Sodium 1 Tablet 2 TABLET PO ×2 (08:59→22:08)
[2025-01-13] MEDS: Metoprolol(XL)Succ 50 MG Tablet PO (08:59)
[2025-01-13] MEDS: Fluticasone/Salmeterol 232-14 Inhaler 1 PUFF INHALATION ×2 (08:59→22:08)
[2025-01-13] MEDS: Calcium Carb/Vitamin D 1 TABLET Tablet PO ×2 (09:00→17:23)
[2025-01-13] MEDS: Umeclidinium Bromide Inhaler 1 PUFF INHALATION (09:00)
[2025-01-13] MEDS: Lidocaine 5% Patch 1 PATCH TOPICAL (09:00)
--- NOTE | 2025-01-13 10:09 | PN_ITS ---
Subjective Subjective Ganesh was seen on team rounds today. Her Momo and her aunt were present in the room. Afebrile VSS -heart rate has ranged from 53 to 80 over the past 24 hours. Blood pressure has ranged from 129/65 to 146/96. The only antihypertensive she is taking is metoprolol XL 50 mg daily. Maintaining appropriate oxygen saturation on RA Oral intake - FOOD good FLUIDS fair Postvoid residuals over the past 48 hours have ranged from 275-430 today. She was started on Flomax on Friday so she has had 3 doses. Had 4 BM's yesterday after a laxative. Discussed with nursing - no problems that need addressed Reviewed the THERAPY notes Medication list reviewed. Still with some dysuria when the urine hits the perineum. No suprapubic pain. No flank pain. No nausea. Still having Left rib pain that increases with cough and movement. Tramadol helps.....only toook 1 yesterday and she had 1 this morning. Has been up in the chair more today. More alert/better energy. Objective Data Objective Data Vital Signs: Vital Signs Temp Pulse Resp BP Pulse Ox O2 Del Method FiO2 98.7 F 62 16 129/65 H 94 Room Air 21 01/13/25 06:00 01/13/25 08:59 01/13/25 06:00 01/13/25 06:00 01/13/25 06:00 01/13/25 06:00 01/07/25 21:55 Oxygen Delivery Method Room Air Weight: 133 lb 2.547 oz Body Mass Index (BMI) 24.3 Intake & Output: Intake and Output for Last 24 Hours 01/11/25 01/12/25 01/13/25 23:59 23:59 23:59 Intake Total 1140 / 1140 1270 / 1270 100 / 100 Output Total 480 / 480 625 / 625 200 / 200 Balance 660 / 660 645 / 645 -100 / -100 Lab / Micro Data 01/08/25 06:11 01/10/25 05:17 Physical Exam Const alert, oriented x3 and no apparent distress Constitutional Narrative: Very alert today. Better color in her face and she is up and out of bed more. Facial droop is improving. Speech is clear. General Appearance: cooperative HEENT Mouth: dry mucous membranes Resp normal respiratory effort and clear to auscultation bilaterally Auscultation: diminished lung sounds Cardio regular rate, regular rhythm and no gallops GI normal to inspection, nondistended, normoactive bowel sounds, soft to palpation and non-tender Extremity no calf tenderness General Extremity: Negative for edema Skin Rashes: no rashes Assessment & Plan Assessment/Plan (1) Debility: (2) Ischemic cerebrovascular accident (CVA): (3) Dysphagia due to recent cerebral infarction: (4) Left leg numbness: (5) Facial droop due to stroke: (6) Left arm weakness: (7) Hypertension: QUALIFIERS: Hypertension type: primary hypertension Qualified Code(s): I10 - Essential (primary) hypertension (8) High cholesterol: (9) Coronary artery calcification of [place] artery: (10) Osteoporosis: QUALIFIERS: Osteoporosis type: unspecified Presence of current pathological fracture: without current pathological fracture Qualified Code(s): M81.0 - Age-related osteoporosis without current pathological fracture (11) COPD (chronic obstructive pulmonary disease): QUALIFIERS: COPD type: unspecified COPD Qualified Code(s): J44.9 - Chronic obstructive pulmonary disease, unspecified (12) Grade I diastolic dysfunction: (13) GERD (gastroesophageal reflux disease): QUALIFIERS: Esophagitis presence: without esophagitis Qualified Code(s): K21.9 - Gastro-esophageal reflux disease without esophagitis (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 Continue therapy 2. I suspect that the burning when the urine reaches the perineum is secondary to atrophic vaginitis rather than a UTI. Will continue Premarin cream. 3. She has urine retention but I suspect that this has been longstanding. She may have some atony to the bladder. I encouraged her to increase her fluid intake because when she drinks more she urinates better. May need to distend the bladder more than usual because of atony. She is going to follow-up with Dr. Carlin Acevedo in the office postdischarge from rehab. When we have a discharge date we will get an appointment scheduled for her. Recheck a BMP in the a.m. and if the creatinine is stable will continue non-invasive tx of urine retention and W/U further as an OP. 4. BMP and CBC in the a.m. 5. Trazodone can cause urinary retention but it is not a frequent complication. She is on a very low dose so I do not think this is contributing to urine retention. 6. Continue dual antiplatelet agents and atorvastatin 80 mg daily. 7. Will need a 30-day event monitor at discharge. 8. The blood pressure is not adequately controlled. Will add Cozaar 50 mg daily and continue to check blood pressure 4 times daily while awake. Some bradycardia. Change the dosing of the metoprolol succinate to 25 mg twice daily. 9. She would like to follow up with [facility] rather than the wood carving machine operator at the previous institution. Her received a 30 event monitor in the mail. We instructed him to bring it in and nursing can apply. I do recommend that she have follow-up with cardiology both to review the event monitor but I also believe she needs a stress test due to the complaints of chest tightness with exertion associated with shortness of breath. These resolve when she sits down. This may all be due to severe COPD but she has multiple risk factors for coronary artery disease so it needs to be investigated. Charges/Coding Visit Charges Inpatient E&M: 30067 Subs Hosp L2
--- NOTE | 2025-01-13 13:02 | CASEMGMT ---
Addendum entered by Nicole Padilla 01/13/25 13:29: correction: pt's aunt attended, not dtr. Original Note: Social Work IDT met with patient, and dtr for Team meeting. Discussed patient's progress in PT/OT/ST/SN/MD. Educated to Medicare approval of 16 days with DC 01/23. Pt will DC to son's house with as it is a one-story home, and her son will live in the pt's two story home, for the time being. Will ReTeam next week. Pt may be ready to DC earlier. SW educated and provided resources on [facility] After a Stroke and Stroke Support Group. SW will continue to follow to assist with DC planning needs. Nicole Padilla SALESPERSON BOO[employer] H[employer]PITAL SUPERVISOR
--- NOTE | 2025-01-13 17:09 | EKG12_ITS ---
Test Reason : CP Blood Pressure : */* mmHG Vent. Rate : 57 BPM Atrial Rate : 57 BPM P-R Int : 214 ms QRS Dur : 84 ms QT Int : 430 ms P-R-T Axes : 81 76 74 degrees QTcB Int : 418 ms Sinus bradycardia with sinus arrhythmia with 1st degree A-V block Otherwise normal ECG When compared with ECG of 07-Jan-2025 18:23, No significant change was found Confirmed by Porfirio Abraham ([id number]), primer expeditor and drier VICENTE MARTINS ([id number]) on 01/17/2025 10:31:24 AM Referred By: Shari Tolbert Confirmed By: Porfirio Abraham
--- NOTE | 2025-01-13 17:20 | NURSING ---
c/o SOB, chest pain, VS WNL, Dr Tolbert made aware, EKG complete. After test complete pt states not having CP it is pain in ribs radiating to chest.
--- NOTE | 2025-01-13 17:37 | PCM.PROGNOTE ---
Subjective Subjective Bladder scan tonight is greater than 500 cc. She has been drinking fluids all day long. She has urinated multiple times but only goes approximately 100 cc at a time. Will order a UA and notify Dr. Acevedo. Suspect she may need intervention for urethral stenosis. Objective Data Objective Data Vital Signs: Vital Signs Temp Pulse Resp BP Pulse Ox O2 Del Method FiO2 98.7 F 60 18 169/76 H 93 Room Air 21 01/13/25 06:00 01/13/25 17:19 01/13/25 17:19 01/13/25 17:19 01/13/25 17:19 01/13/25 17:19 01/07/25 21:55 Oxygen Delivery Method Room Air Weight: 133 lb 2.547 oz Body Mass Index (BMI) 24.3 Intake & Output: Intake and Output for Last 24 Hours 01/11/25 01/12/25 01/13/25 23:59 23:59 23:59 Intake Total 1140 / 1140 1270 / 1270 450 / 450 Output Total 480 / 480 625 / 625 500 / 500 Balance 660 / 660 645 / 645 -50 / -50 Lab / Micro Data 01/08/25 06:11 01/10/25 05:17
[2025-01-13] MEDS: MELATONIN 3 MG TABLET PO (22:09)
[2025-01-13] MEDS: Estrogens,Conj. 1 Tube 1 DOSE VAGINAL (22:10)
[2025-01-14] VITALS (8 sets, daily range): BP systolic 122–139; BP diastolic 63–84; PULSE 54–64; RESP 16–18; TEMP 36.6–36.7; O2SAT 93–94; BMI 24.3; BMI 36.7
[2025-01-14] MEDS: Metoprolol(XL)Succ 25 MG Tablet PO ×3 (05:38→20:24)
[2025-01-14 07:46] LABS: Hematocrit 34.8 % (37-47); Hemoglobin 11.9 g/dL (12.0-15.0); Immature Granulocytes Count 0.010 X10^3/uL (0.0-0.0); Mean Corp Hgb Conc 34.2 g/dL (32-36); Mean Corpuscular Volume 88.8 fL (81-99); Mean Platelet Vol. 9.4 fl (6.2-12.0); NRBC Flagged by Analyzer 0 % (0-5); Platelet Count 325 K/mm3 (150-450); RBC Distribution Width CV 13.2 % (11.6-14.6); RBC Distribution Width SD 42.7 fl (35.1-43.9); Red Blood Count 3.92 M/mm3 (4.2-5.4); White Blood Count 5.6 K/mm3 (4.4-11.0)
[2025-01-14] MEDS: Calcium Carb/Vitamin D 1 TABLET Tablet PO ×2 (08:16→17:01)
[2025-01-14] MEDS: Senna/Docusate Sodium 1 Tablet 2 TABLET PO ×2 (08:16→20:14)
[2025-01-14] MEDS: Umeclidinium Bromide Inhaler 1 PUFF INHALATION (08:17)
[2025-01-14 08:42] LABS: Anion Gap 12 (5-15); BUN 13 mg/dL (4-19); BUN/Creat Ratio 18.1 RATIO (10-20); Calcium,Total 9.3 mg/dL (7.6-11.0); Carbon Dioxide 21.1 mmol/L (21.0-32.0); Chloride 104 mmol/L (98-108); Estimated Creatinine Clearance 69.67 ml/min (50-250); Glucose 84 mg/dL (70-99); Potassium 4.0 mmol/L (3.3-5.1)
[2025-01-14] MEDS: Fluticasone/Salmeterol 232-14 Inhaler 1 PUFF INHALATION ×2 (09:08→20:13)
[2025-01-14] MEDS: Lidocaine 5% Patch 1 PATCH TOPICAL (09:08)
--- NOTE | 2025-01-14 09:38 | PCM.PROGNOTE ---
Subjective Subjective Afebrile VSS -heart rate has ranged from 53 to 80 over the past 24 hours. Blood pressure has ranged from 130's/60's in the last 24 hours. Maintaining appropriate oxygen saturation of 94-97% on RA Oral intake - FOOD good FLUIDS fair-encourage fluids. Postvoid residuals over the past 24 hours have ranged from 430-574. She was started on Flomax on Friday she continues to have urinary retention. Straight cath attempts by rehab staff were unsuccessful. Dr. Acevedo has been consulted for diaz cath placement as it is believed she may have urethral stenosis. Discussed with nursing - urology cart to bedside for Dr. Acevedo Reviewed the THERAPY notes Medication list reviewed. Still with some dysuria when the urine hits the perineum. No suprapubic pain. No flank pain. No nausea. Still having Left rib pain that increases with cough and movement. She is utilizing her accapella and IS as instructed. She is on scheduled Tylenol 1,000mg tid and Tramadol which she states is helpful. She did receive one dose this morning at 0820. She was up to chair during assessment. States that she is very tired because she got up to utilize the restroom at 0430 and she states that nursing then got her dressed and she isnt used to getting up so early. Objective Data Objective Data Vital Signs: Vital Signs Temp Pulse Resp BP Pulse Ox O2 Del Method FiO2 98.0 F 62 16 131/63 H 94 Room Air 21 01/14/25 06:00 01/14/25 08:17 01/14/25 06:00 01/14/25 08:17 01/14/25 06:00 01/14/25 06:00 01/07/25 21:55 Oxygen Delivery Method Room Air Weight: 200 lb 13.458 oz Body Mass Index (BMI) 36.7 Intake & Output: Intake and Output for Last 24 Hours 01/12/25 01/13/25 01/14/25 23:59 23:59 23:59 Intake Total 1270 / 1270 600 / 600 1150 / 1150 Output Total 625 / 625 1310 / 1410 500 / 500 Balance 645 / 645 -710 / -810 650 / 650 Lab / Micro Data Attestation: I reviewed the patient's lab results. 01/14/25 07:26 01/14/25 07:26 Labs: Laboratory Results - last 24 hr 01/14/25 07:26: WBC 5.6, RBC 3.92 L, Hgb 11.9 L, Hct 34.8 L, MCV 88.8, MCH 30.4, MCHC 34.2, RDW Std Deviation 42.7, RDW Coeff of Lori 13.2, Plt Count 325, MPV 9.4, Immature Gran % (Auto) 0.200, Neut % (Auto) 71.2 H, Lymph % (Auto) 16.0 L, [place] % (Auto) 9.0, Eos % (Auto) 3.2, Baso % (Auto) 0.4, Absolute Neuts (auto) 4.0, Absolute Lymphs (auto) 0.89, Nucleated RBC % 0, Sodium 136, Potassium 4.0, Chloride 104, Carbon Dioxide 21.1, Anion Gap 12, BUN 13, Creatinine 0.71, Estim Creat Clear Calc 69.67, Est GFR (MDRD) Non-Af 92, BUN/Creatinine Ratio 18.1, Glucose 84, Calcium 9.3 Physical Exam Const alert, oriented x3 and no apparent distress Constitutional Narrative: Very alert today. Better color in her face and she is up and out of bed more. Facial droop is improving. Speech is clear. General Appearance: cooperative HEENT Mouth: dry mucous membranes Resp normal respiratory effort and clear to auscultation bilaterally Auscultation: diminished lung sounds Cardio regular rate, regular rhythm and no gallops GI normal to inspection, nondistended, normoactive bowel sounds, soft to palpation and non-tender Extremity no calf tenderness General Extremity: Negative for edema Skin Rashes: no rashes Neuro Neuro Narrative: slight disability to the LUE in finger to nose test but was able to perform. Continued L facial droop. Coordination / Balance: [id number] test normal Psych Appearance: appropriate Assessment & Plan Assessment/Plan (1) Debility: (2) Ischemic cerebrovascular accident (CVA): (3) Dysphagia due to recent cerebral infarction: (4) Left leg numbness: (5) Facial droop due to stroke: (6) Left arm weakness: (7) Hypertension: QUALIFIERS: Hypertension type: primary hypertension Qualified Code(s): I10 - Essential (primary) hypertension (8) High cholesterol: (9) Coronary artery calcification of [place] artery: (10) Osteoporosis: QUALIFIERS: Osteoporosis type: unspecified Presence of current pathological fracture: without current pathological fracture Qualified Code(s): M81.0 - Age-related osteoporosis without current pathological fracture (11) COPD (chronic obstructive pulmonary disease): QUALIFIERS: COPD type: unspecified COPD Qualified Code(s): J44.9 - Chronic obstructive pulmonary disease, unspecified (12) Grade I diastolic dysfunction: (13) GERD (gastroesophageal reflux disease): QUALIFIERS: Esophagitis presence: without esophagitis Qualified Code(s): K21.9 - Gastro-esophageal reflux disease without esophagitis (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 Continue therapy 2. I suspect that the burning when the urine reaches the perineum is secondary to atrophic vaginitis rather than a UTI. Will continue Premarin cream. 3. She has urine retention but I suspect that this has been longstanding. She may have some atony to the bladder. I encouraged her to increase her fluid intake because when she drinks more she urinates better. May need to distend the bladder more than usual because of atony. Dr. Acevedo has been consulted for faoley cath placement. She will then follow-up with Dr. Acevedo in the office postdischarge from rehab. When we have a discharge date we will get an appointment scheduled for her. 4. Trazodone can cause urinary retention but it is not a frequent complication. She is on a very low dose so I do not think this is contributing to urine retention. 5. Continue dual antiplatelet agents and atorvastatin 80 mg daily. 6. Will need a 30-day event monitor at discharge. 7. The blood pressure was not adequately controlled on admission. Cozaar 50 mg daily was added yesterday and will continue to check blood pressure 4 times daily while awake. (range now 130's/60's ) Some bradycardia. Changed the dosing of the metoprolol succinate to 25 mg twice daily. Hr was 53-62 last 24 hours. 8. 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 Her received a 30 event monitor in the mail. We instructed him to bring it in and nursing can apply. I do recommend that she have follow-up with cardiology both to review the event monitor but I also believe she needs a stress test due to the complaints of chest tightness with exertion associated with shortness of breath. These resolve when she sits down. This may all be due to severe COPD but she has multiple risk factors for coronary artery disease so it needs to be investigated. Charges/Coding Visit Charges Inpatient E&M: 08239 Init Hosp L2
--- NOTE | 2025-01-14 17:07 | PCM.CONS.GEN ---
Assessment & Plan Assessment/Plan (1) Urethral stenosis: (2) Atrophic vaginitis: (3) Urinary retention: PLAN: Plan Urine culture Continue vaginal estrogen cream Trial of void in 7 days Routine Forte care twice daily Continue aggressive bowel management HPI Consult Data Date of Consult: 01/14/25 HPI Narrative Reason for Consultation: Urinary retention HPI Narrative: JADEN MOORE, is a 69 F who is admitted into the rehab facility for recovery after cerebrovascular accident. She has had incomplete bladder emptying over the last week and it has worsened today. There have been 2-3 attempts at Forte catheter placement which have been unsuccessful. Speaking to the patient, she has had no urologic issues previously. She denies urinary tract infections, hematuria, incontinence, urgency or frequency. She has no sensation of pelvic organ prolapse. She has no history of urinary retention or stones. She is not having issues at this time with her bowels. She is doing well in therapy and is walking. [facility] Medical History COPD (chronic obstructive pulmonary disease) Family history of thyroid disease GERD (gastroesophageal reflux disease) Tobacco dependence in remission Osteoporosis Coronary artery calcification of [place] artery Stroke/cerebrovascular accident High cholesterol Hypertension Home Medications ?Medication ?Instructions ?Recorded ?Last Taken ?Type amlodipine 5 mg tablet 5 mg PO DAILY blood pressure 01/06/25 Unknown History calcium 600 mg (as 1 tab PO DAILY supplement 01/06/25 Unknown History carbonate)-vitamin D3 20 mcg (800 unit) tablet (Caltrate with Vitamin D3) losartan 50 mg tablet 50 mg PO DAILY blood pressure 01/06/25 Unknown History omeprazole 20 mg capsule,delayed 20 mg PO DAILY gerd 01/06/25 Unknown History release aspirin 81 mg chewable tablet 81 mg PO BREAKFAST stroke 30 days 01/07/25 Unknown Rx #30 tabs atorvastatin 80 mg tablet 80 mg PO QHS cholesterol 30 days 01/07/25 Unknown Rx #30 tabs clopidogrel 75 mg tablet (Plavix) 75 mg PO DAILY blood thinner 90 01/07/25 Unknown Rx days #90 tabs Allergy/AdvReac Type Severity Reaction Status Date / Time No Known Allergies Allergy Verified 06/13/14 09:40 Family History Maternal Grandmother CVA (cerebral vascular accident) Sister Thyroid disorder Mother Thyroid disorder Other Cancer Diabetes Heart disease Surgical History History of breast biopsy H/O tubal ligation History of tonsillectomy and adenoidectomy H/O section Social History household members: spouse and other details: 's name is Momo housing: house number of children: 2 current occupational status: retired Smoking Status: Former smoker Tobacco: How many years used: 40 how long ago did patient quit smoking: She quit smoking in July 2023 alcohol intake: current alcohol intake frequency: holidays/special occasions only ROS Constitutional Constitutional: Reports weakness; Denies chills or fever(s) Eyes Eyes: Reports systems reviewed and no addt'l complaints, except as documented ENT HEENT: Reports systems reviewed and no addt'l complaints, except as documented Cardiovascular Cardiovascular: Denies abdominal pain, chest pain, dyspnea, nausea or vomiting Respiratory/Chest Respiratory/Chest: Denies cough or dyspnea Gastrointestinal Gastrointestinal: Denies abdominal pain, diarrhea, nausea or vomiting Musculoskeletal Musculoskeletal: Reports muscle weakness Integumentary Integumentary: Reports systems reviewed and no addt'l complaints, except as documented Neurologic Neurologic: Reports focal weakness Psychiatric Psychiatric: Reports systems reviewed and no addt'l complaints, except as documented Endocrine Endocrinology: Reports systems reviewed and no addt'l complaints, except as documented Hematologic/Lymphatic Hematologic/Lymphatic: Reports systems reviewed and no addt'l complaints, except as documented Allergic/Immunologic Allergic/Immunologic: Reports systems reviewed and no addt'l complaints, except as documented Physical Exam Narrative Urethral dilation the patient was prepped and draped in usual fashion. The vulva and urethra were cleansed with Betadine swabs. A Uro-Jet was injected into the urethra. An attempt was made at placement of a 16 [place] Ofrte catheter. Access to the urethra was unable to be obtained. The urethral meatus was palpable. Carefully, using female sounds starting with 12 Malian, access was obtained through the urethral meatus into the urinary bladder with clear yellow urine resulting. The urethra was dilated gently up to 18 Malian and at this time a 16 Malian Forte catheter was inserted to straight drain using a catheter guide. The patient tolerated the procedure well. 10 cc of saline was placed into the Forte balloon. The catheter was left to straight drain. There were no complications during the procedure Const alert, oriented x3 and no apparent distress General Appearance: cooperative, comfortable and well kempt Orientation / Consciousness: awake HEENT normocephalic, head/scalp atraumatic, hearing grossly normal bilaterally, external ears normal, external nose normal and moist oral mucous membranes Eyes General Eye: normal appearance of both eyes Neck supple General: normal visual inspection and trachea midline Lymph Lymphatic: no lymphedema noted Chest inspection of chest normal Chest: symmetrical chest wall rise Resp normal respiratory effort, normal air movement and no retractions Cardio regular rate GI soft to palpation and non-tender GI Narrative: Suprapubic fullness Bladder / Kidney Exam: No CVA tenderness External Female Exam: external swelling Speculum Exam - Vagina: vagina atrophic mucosa, vaginal swelling and other There is significant atrophy of the vaginal mucosa and a retropubic location of the urethra which is small. ; Negative for vaginal mass or vaginal discharge Bimanual Exam - Adnexa, Other: pelvic support normal Recto-Vaginal: other No stool palpable in the rectal vault Back/Spine General Back: Negative for CVA tenderness Extremity normal to inspection Skin no rashes or lesions noted, no wounds, no jaundice, no petechiae and no mottling Neuro oriented x3 and moves all extremities Psych mental status grossly normal and thought process normal Lab / Micro Data 01/14/25 07:26 01/14/25 07:26 Labs: Laboratory Results - last 24 hr 01/14/25 07:26: WBC 5.6, RBC 3.92 L, Hgb 11.9 L, Hct 34.8 L, MCV 88.8, MCH 30.4, MCHC 34.2, RDW Std Deviation 42.7, RDW Coeff of Lori 13.2, Plt Count 325, MPV 9.4, Immature Gran % (Auto) 0.200, Neut % (Auto) 71.2 H, Lymph % (Auto) 16.0 L, [place] % (Auto) 9.0, Eos % (Auto) 3.2, Baso % (Auto) 0.4, Absolute Neuts (auto) 4.0, Absolute Lymphs (auto) 0.89, Nucleated RBC % 0, Sodium 136, Potassium 4.0, Chloride 104, Carbon Dioxide 21.1, Anion Gap 12, BUN 13, Creatinine 0.71, Estim Creat Clear Calc 69.67, Est GFR (MDRD) Non-Af 92, BUN/Creatinine Ratio 18.1, Glucose 84, Calcium 9.3 Charges/Coding Urology Urology: [facility]
--- NOTE | 2025-01-14 17:11 | PN_ITS ---
Subjective Subjective The patient was successfully catheterized by Dr. Acevedo after she dilated the urethra. Urine in the Forte bag is pale yellow and clear. Patient tolerated the procedure well. Plan to leave the Forte catheter in for 7 days and then DC for a voiding trial. Will need PVRs after the catheter is discontinued. Will continue estrogen cream at discharge 3 times a week. She will follow-up with Dr. Acevedo in the office. Dr. Acevedo wanted a UA and culture and that has been ordered. Objective Data Objective Data Vital Signs: Vital Signs Temp Pulse Resp BP Pulse Ox O2 Del Method FiO2 98.0 F 64 16 134/72 H 94 Room Air 21 01/14/25 06:00 01/14/25 14:00 01/14/25 06:00 01/14/25 14:00 01/14/25 06:00 01/14/25 08:30 01/07/25 21:55 Oxygen Delivery Method Room Air Weight: 200 lb 13.458 oz Body Mass Index (BMI) 36.7 Intake & Output: Intake and Output for Last 24 Hours 01/12/25 01/13/25 01/14/25 23:59 23:59 23:59 Intake Total 1270 / 1270 600 / 600 1510 / 1510 Output Total 625 / 625 1310 / 1410 700 / 700 Balance 645 / 645 -710 / -810 810 / 810 Lab / Micro Data 01/14/25 07:26 01/14/25 07:26 Labs: Laboratory Results - last 24 hr 01/14/25 07:26: WBC 5.6, RBC 3.92 L, Hgb 11.9 L, Hct 34.8 L, MCV 88.8, MCH 30.4, MCHC 34.2, RDW Std Deviation 42.7, RDW Coeff of Lori 13.2, Plt Count 325, MPV 9.4, Immature Gran % (Auto) 0.200, Neut % (Auto) 71.2 H, Lymph % (Auto) 16.0 L, [place] % (Auto) 9.0, Eos % (Auto) 3.2, Baso % (Auto) 0.4, Absolute Neuts (auto) 4.0, Absolute Lymphs (auto) 0.89, Nucleated RBC % 0, Sodium 136, Potassium 4.0, Chloride 104, Carbon Dioxide 21.1, Anion Gap 12, BUN 13, Creatinine 0.71, Estim Creat Clear Calc 69.67, Est GFR (MDRD) Non-Af 92, BUN/Creatinine Ratio 18.1, Glucose 84, Calcium 9.3
[2025-01-14 17:19] LABS: Mucous, Urine 0 SEEN /hpf (<or=2+)
[2025-01-14 17:21] LABS: Color, Urine Yellow (Yellow); Glucose, Dipstick Normal (Normal); Ketone-Dipstick Negative (Negative); Leukocyte Esterase-Dipstick Negative /ul (Negative); Nitrite-Dipstick Negative (Negative); Occult Blood-Urine 10 /ul (Negative); Protein-Dipstick Negative (Negative); Specific Gravity, Urine 1.010 (1.002-1.030); Urine Bilirubin Dipstick Negative (Negative)
[2025-01-14 19:13] LABS: Red Blood Cells-Urine 0-5 SEEN /hpf (0-5); Squamous Epithelial Cells - UA 0-5 SEEN /hpf (5-10)
[2025-01-14] MEDS: Estrogens,Conj. 1 Tube 1 DOSE VAGINAL (20:09)
[2025-01-14] MEDS: MELATONIN 3 MG TABLET PO (20:11)
[2025-01-15 06:00] VITALS: BP 135/66; PULSE 54; RESP 16; TEMP 36.7; O2SAT 93
[2025-01-15 08:05] VITALS: BP 125/70; PULSE 60
[2025-01-15] MEDS: Calcium Carb/Vitamin D 1 TABLET Tablet PO ×2 (08:05→16:04)
[2025-01-15] MEDS: Metoprolol(XL)Succ 25 MG Tablet PO ×2 (08:05→20:39)
[2025-01-15] MEDS: Senna/Docusate Sodium 1 Tablet 2 TABLET PO ×2 (08:05→20:33)
[2025-01-15] MEDS: Fluticasone/Salmeterol 232-14 Inhaler 1 PUFF INHALATION ×2 (08:06→20:33)
[2025-01-15] MEDS: Lidocaine 5% Patch 1 PATCH TOPICAL (08:06)
[2025-01-15] MEDS: Umeclidinium Bromide Inhaler 1 PUFF INHALATION (08:11)
[2025-01-15 10:31] VITALS: BMI 36.7
[2025-01-15 13:30] VITALS: BP 106/70; PULSE 60
[2025-01-15 17:06] VITALS: BP 102/65; PULSE 80; RESP 17; TEMP 36.8; O2SAT 96
[2025-01-15] MEDS: Estrogens,Conj. 1 Tube 1 DOSE VAGINAL (20:35)
[2025-01-15] MEDS: MELATONIN 3 MG TABLET PO (20:35)
[2025-01-15 20:39] VITALS: BP 122/68; PULSE 58
[2025-01-15 21:38] VITALS: BP 122/68; PULSE 58
[2025-01-15 21:43] VITALS: BMI 36.7
[2025-01-16] VITALS (7 sets, daily range): BP systolic 124–150; BP diastolic 60–73; PULSE 53–61; RESP 16; TEMP 36.3–36.7; O2SAT 95–96; BMI 36.7
[2025-01-16] MEDS: Umeclidinium Bromide Inhaler 1 PUFF INHALATION (08:36)
[2025-01-16] MEDS: Calcium Carb/Vitamin D 1 TABLET Tablet PO ×2 (08:37→16:50)
[2025-01-16] MEDS: Metoprolol(XL)Succ 25 MG Tablet PO ×2 (08:37→21:19)
[2025-01-16] MEDS: Fluticasone/Salmeterol 232-14 Inhaler 1 PUFF INHALATION ×2 (08:37→21:17)
[2025-01-16] MEDS: Lidocaine 5% Patch 1 PATCH TOPICAL (08:37)
[2025-01-16] MEDS: Senna/Docusate Sodium 1 Tablet 2 TABLET PO ×2 (08:38→21:15)
[2025-01-16] MEDS: MELATONIN 3 MG TABLET PO (21:15)
[2025-01-16] MEDS: Estrogens,Conj. 1 Tube 1 DOSE VAGINAL (21:17)
[2025-01-17 06:00] VITALS: BP 150/72; PULSE 51; RESP 16; TEMP 36.6; O2SAT 93
[2025-01-17 08:23] VITALS: BP 150/72; PULSE 63
[2025-01-17] MEDS: Metoprolol(XL)Succ 25 MG Tablet PO (08:23)
[2025-01-17] MEDS: Senna/Docusate Sodium 1 Tablet 2 TABLET PO ×2 (08:23→22:16)
[2025-01-17] MEDS: Lidocaine 5% Patch 1 PATCH TOPICAL (08:23)
[2025-01-17] MEDS: Calcium Carb/Vitamin D 1 TABLET Tablet PO ×2 (08:24→16:51)
[2025-01-17] MEDS: Umeclidinium Bromide Inhaler 1 PUFF INHALATION (08:27)
[2025-01-17] MEDS: Fluticasone/Salmeterol 232-14 Inhaler 1 PUFF INHALATION ×2 (08:27→22:16)
--- NOTE | 2025-01-17 10:06 | PN_ITS ---
Subjective Subjective Afebrile VSS -blood pressure over the weekend has ranged from 122/68 to 150/72. Maintaining appropriate oxygen saturation on RA Oral intake - FOOD erratic (possibly due to nausea) FLUIDS Good Discussed with nursing - no problems that need addressed Reviewed the THERAPY notes Medication list reviewed. She is complaining of intermittent nausea for the past few days. She was started on Pyridium Friday and this may be the cause of the nausea. When I asked if she was lightheaded she started talking about a pain that she has that comes and goes in the R chest? I asked again and she answered maybe she has lightheadedness. she has multiple somatic complaints and expects medication to be ordered. We had a discussion about being able to tolerate some discomfort without reaching for a medication..........Reinforced with her that all medications have side effects and drug interactions and she is on quite a few meds. She does not believe the L rib pain would be adequately controlled with scheduled Tylenol and a Lidocaine patch. Has been taking Tramadol twice a day for pain. This could be causing some of the nausea. I think she may benefit from psychotherapy as an OP........seems anxious and has many somatic complaints. Doing well with therapy. Will discuss this with her. Objective Data Objective Data Vital Signs: Vital Signs Temp Pulse Resp BP Pulse Ox O2 Del Method FiO2 97.9 F 63 16 150/72 H 93 Room Air 21 01/17/25 06:00 01/17/25 08:23 01/17/25 06:00 01/17/25 08:23 01/17/25 06:00 01/17/25 09:24 01/07/25 21:55 Oxygen Delivery Method Room Air Weight: 200 lb 13.458 oz Body Mass Index (BMI) 36.7 Intake & Output: Intake and Output for Last 24 Hours 01/15/25 01/16/25 01/17/25 23:59 23:59 23:59 Intake Total 1600 / 1600 1570 / 1570 520 / 520 Output Total 1375 / 1375 1150 / 1150 800 / 800 Balance 225 / 225 420 / 420 -280 / -280 Lab / Micro Data 01/14/25 07:26 01/14/25 07:26 Physical Exam Const alert, oriented x3 and no apparent distress Constitutional Narrative: sitting in the recliner at the bedside and does not appear to be uncomfortable or in distress. Tens to perseverate about the rib pain. General Appearance: cooperative HEENT HEENT Narrative: MM are more moist today and she has been doing a better job increasing her fluid intake. Resp normal respiratory effort and clear to auscultation bilaterally Auscultation: diminished lung sounds Cardio regular rhythm and no gallops Cardio Narrative: Bradycardic. GI normal to inspection, nondistended, normoactive bowel sounds, soft to palpation and non-tender GI Narrative: No guarding with palpation Extremity no calf tenderness General Extremity: Negative for edema Skin Rashes: no rashes Psych Psych Narrative: Seems anxious. Has many somatic complaints and tends to perseverate on these. sleeping better with the Trazodone at night. Assessment & Plan Assessment/Plan (1) Debility: (2) Ischemic cerebrovascular accident (CVA): (3) Dysphagia due to recent cerebral infarction: (4) Left leg numbness: (5) Facial droop due to stroke: (6) Left arm weakness: (7) Hypertension: QUALIFIERS: Hypertension type: primary hypertension Qualified Code(s): I10 - Essential (primary) hypertension (8) High cholesterol: (9) Coronary artery calcification of [place] artery: (10) Osteoporosis: QUALIFIERS: Osteoporosis type: unspecified Presence of current pathological fracture: without current pathological fracture Qualified Code(s): M81.0 - Age-related osteoporosis without current pathological fracture (11) COPD (chronic obstructive pulmonary disease): QUALIFIERS: COPD type: unspecified COPD Qualified Code(s): J44.9 - Chronic obstructive pulmonary disease, unspecified (12) Grade I diastolic dysfunction: (13) GERD (gastroesophageal reflux disease): QUALIFIERS: Esophagitis presence: without esophagitis Qualified Code(s): K21.9 - Gastro-esophageal reflux disease without esophagitis (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 Continue therapy 2. Discontinue Pyridium 3. If nausea fails to resolve with discontinuation of the Pyridium will DC Tramadol....taking twice a day alone with scheduled Tylenol and a Lidocaine patch. 4. check a UA again today. The urine today in the tubing and in the bag is orange....more likely than not due to Pyridium. she did not have nausea prior to the Pyridium being started. 5. Discontinue Flomax because it did not help. 6. Consider starting an SSRI? psychotherapy? Charges/Coding Visit Charges Inpatient E&M: 22760 Subs Hosp L1
[2025-01-17 13:21] VITALS: BP 138/58; PULSE 58
[2025-01-17 16:26] LABS: Mucous, Urine 0 SEEN /hpf (<or=2+)
[2025-01-17 16:27] VITALS: BMI 24.8
[2025-01-17 16:34] LABS: Color, Urine Yellow (Yellow); Glucose, Dipstick Normal (Normal); Ketone-Dipstick 5 mg/dl (Negative); Leukocyte Esterase-Dipstick 500 /ul (Negative); Nitrite-Dipstick Positive (Negative); Occult Blood-Urine 250 /ul (Negative); Protein-Dipstick 30 mg/dl (Negative); Specific Gravity, Urine 1.020 (1.002-1.030); Urine Bilirubin Dipstick Negative (Negative)
[2025-01-17 16:43] LABS: Squamous Epithelial Cells - UA 0-5 SEEN /hpf (5-10)
[2025-01-17 16:44] LABS: Red Blood Cells-Urine 10-25 SEEN /hpf (0-5)
[2025-01-17 17:36] VITALS: BP 147/75; PULSE 53; RESP 17; TEMP 36.1; O2SAT 94
[2025-01-17 21:45] VITALS: BP 160/81; PULSE 60; RESP 16; TEMP 37.3; O2SAT 95
[2025-01-17 22:00] VITALS: O2SAT 95
[2025-01-17] MEDS: MELATONIN 3 MG TABLET PO (22:16)
[2025-01-17] MEDS: Estrogens,Conj. 1 Tube 1 DOSE VAGINAL (22:17)
[2025-01-18 03:16] VITALS: BMI 24.8
[2025-01-18 06:00] VITALS: BP 146/78; PULSE 59; RESP 16; TEMP 37.1; O2SAT 96
[2025-01-18] MEDS: Umeclidinium Bromide Inhaler 1 PUFF INHALATION (08:03)
[2025-01-18] MEDS: Fluticasone/Salmeterol 232-14 Inhaler 1 PUFF INHALATION ×2 (08:03→22:34)
[2025-01-18 08:04] VITALS: BP 144/99; PULSE 68
[2025-01-18] MEDS: Calcium Carb/Vitamin D 1 TABLET Tablet PO ×2 (08:04→16:23)
[2025-01-18] MEDS: Senna/Docusate Sodium 1 Tablet 2 TABLET PO ×2 (08:04→22:33)
[2025-01-18] MEDS: Metoprolol(XL)Succ 25 MG Tablet PO (08:04)
[2025-01-18] MEDS: Lidocaine 5% Patch 1 PATCH TOPICAL (08:05)
--- NOTE | 2025-01-18 10:16 | PN_ITS ---
Subjective Subjective Afebrile VSS -heart rate has ranged from 53-68. Blood pressure has ranged from 138/58 to 160/81. Losartan was increased to 100 mg daily yesterday. She is also on metoprolol XL 25 mg daily (decreased from 50 mg daily due to bradycardia). Maintaining appropriate oxygen saturation on RA Oral intake - FOOD ate 75 to 100% of breakfast and lunch yesterday but did poorly for dinner and refused breakfast today. FLUIDS she took in 1680 cc yesterday but had 1800 for a balance of -120. Overnight she was 1:50 AM and 900 out for a balance of -750. Discussed with nursing - no problems that need addressed Reviewed the THERAPY notes Medication list reviewed. She tells me the nausea is somewhat better today. Has had no emesis. Dedra tells me that she was taking amlodipine at home and checking her blood pressure and that it was mostly controlled. The ER documentation states that she was taking lisinopril 10 mg daily. The H&P done by the hospitalist states she was taking amlodipine 5 mg and Cozaar 50 mg at admission to the hospital. She complained of chest heaviness and OROZCO that resolved with sitting down and she was changed from Amlodipine to Metoprolol. Not tolerating Amlodipine well due to bradycardia. Get very irritated with singing on rehab in another room this weekend because she thought it was too loud. When she got upset she had nausea. She has insomnia. We discussed the sx of anxiety and depression and she admits that she has several of the sx. Tells me that she wasn't always like this and it has just been recently. I suspect smoking was her way to control anxiety. When she quit smoking she went to vaping nicotine products. She has severe COPD now and had OROZCO. She has had to give up vaping since coming to the hospital with stroke sx. She has multiple somatic complaints and yet does not appear to be in any significant distress. She perseverates on the somatic complaints. She is agreeable to trying something for anxiety. Objective Data Objective Data Vital Signs: Vital Signs Temp Pulse Resp BP Pulse Ox O2 Del Method FiO2 98.7 F 68 16 144/99 H 96 Room Air 21 01/18/25 06:00 01/18/25 08:04 01/18/25 06:00 01/18/25 08:04 01/18/25 06:00 01/18/25 08:15 01/07/25 21:55 Oxygen Delivery Method Room Air Weight: 135 lb 12.876 oz Body Mass Index (BMI) 24.8 Intake & Output: Intake and Output for Last 24 Hours 01/16/25 01/17/25 01/18/25 23:59 23:59 23:59 Intake Total 1570 / 1570 1680 / 1680 150 / 150 Output Total 1150 / 1150 1800 / 1800 900 / 900 Balance 420 / 420 -120 / -120 -750 / -750 Lab / Micro Data 01/14/25 07:26 01/14/25 07:26 Labs: Laboratory Results - last 24 hr 01/17/25 16:14: Urine Color Yellow, Urine Clarity Sl. Cloudy, Urine pH 6.0, Ur Specific [place] 1.020, Urine Protein 30 H, Urine Glucose (UA) Normal, Urine Ketones 5 H, Urine Occult Blood 250 H, Urine Nitrite Positive H, Urine Bilirubin Negative, Urine Urobilinogen 1 H, Ur Leukocyte Esterase 500 H, Urine RBC 10-25 SEEN, Urine WBC 25-50 SEEN, Ur Squamous Epith Cells 0-5 SEEN, Urine Bacteria 2+, Urine Mucus 0 SEEN Physical Exam Const alert, oriented x3 and no apparent distress General Appearance: cooperative HEENT HEENT Narrative: MM are more moist today and she has been doing a better job increasing her fluid intake. Resp normal respiratory effort and clear to auscultation bilaterally Auscultation: diminished lung sounds Cardio regular rhythm and no gallops Cardio Narrative: Bradycardic. GI normal to inspection, nondistended, normoactive bowel sounds, soft to palpation and non-tender GI Narrative: No guarding with palpation Extremity no calf tenderness General Extremity: Negative for edema Skin Rashes: no rashes Assessment & Plan Assessment/Plan (1) Debility: (2) Ischemic cerebrovascular accident (CVA): (3) Dysphagia due to recent cerebral infarction: (4) Left leg numbness: (5) Facial droop due to stroke: (6) Left arm weakness: (7) Hypertension: QUALIFIERS: Hypertension type: primary hypertension Qualified Code(s): I10 - Essential (primary) hypertension (8) High cholesterol: (9) 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: (10) Osteoporosis: QUALIFIERS: Osteoporosis type: unspecified Presence of current pathological fracture: without current pathological fracture Qualified Code(s): M81.0 - Age-related osteoporosis without current pathological fracture (11) COPD (chronic obstructive pulmonary disease): QUALIFIERS: COPD type: unspecified COPD Qualified Code(s): J44.9 - Chronic obstructive pulmonary disease, unspecified (12) Grade I diastolic dysfunction: (13) GERD (gastroesophageal reflux disease): QUALIFIERS: Esophagitis presence: without esophagitis Qualified Code(s): K21.9 - Gastro-esophageal reflux disease without esophagitis (14) Tobacco dependence in remission: (15) Atrophic vaginitis: (16) Urethral stenosis: (17) Vaping nicotine dependence, non-tobacco product: (18) Mixed anxiety and depressive disorder: (19) Urinary retention: PLAN: Secondary to urethral stenosis. PLAN: Plan 1. Continue therapy 2. Discontinue the beta-sil and start amlodipine 10 mg daily in the AM. Continue Cozaar 100 mg daily. Continue hydralazine as needed for elevated blood pressures. 3. DC trazodone and start Remeron at bedtime. 4. Start BuSpar 5 mg twice daily starting today 5. Palliative care consult for severe COPD with anxiety Charges/Coding Visit Charges Inpatient E&M: 58856 Subs Hosp L1
--- NOTE | 2025-01-18 11:00 | CON.PCM.PA_ITS ---
[facility] Medical History COPD (chronic obstructive pulmonary disease) Family history of thyroid disease GERD (gastroesophageal reflux disease) Tobacco dependence in remission Osteoporosis Coronary artery calcification of [place] artery Stroke/cerebrovascular accident High cholesterol Hypertension Home Medications ?Medication ?Instructions ?Recorded ?Last Taken ?Type amlodipine 5 mg tablet 5 mg PO DAILY blood pressure 01/06/25 Unknown History calcium 600 mg (as 1 tab PO DAILY supplement Unknown History carbonate)-vitamin D3 20 mcg (800 unit) tablet (Caltrate with Vitamin D3) losartan 50 mg tablet 50 mg PO DAILY blood pressur e 01/06/25 Unknown History omeprazole 20 mg capsule,delayed 20 mg PO DAILY gerd 1 Unknown History release aspirin 81 mg chewable tablet 81 mg PO BREAKFAST strok e 30 days 01/07/25 Unknown Rx #30 tabs atorvastatin 80 mg tablet 80 mg PO QHS cholesterol 30 days 01/07/25 Unknown Rx #30 tabs clopidogrel 75 mg tablet (Plavix) 75 mg PO DAILY blood thinner 90 01/07/25 Unknown Rx days #90 tabs Allergy/AdvReac Type Severity Reaction Status Date / Time No Known Allergies Allergy Verified 06/13/14 09:40 Family History Maternal Grandmother CVA (cerebral vascular accident) Sister Thyroid disorder Mother Thyroid disorder Other Cancer Diabetes Heart disease Surgical History History of breast biopsy H/O tubal ligation History of tonsillectomy and adenoidectomy H/O section Social History household members: spouse and other details: 's name is Momo housing: house number of children: 2 current occupational status: retired Smoking Status: Former smoker Tobacco: How many years used: 40 how long ago did patient quit smoking: She quit smoking in July 2023 alcohol intake: current alcohol intake frequency: holidays/special occasions only ROS Constitutional Constitutional: Reports daytime sleepiness and difficulty sleeping Eyes Eyes: Reports systems reviewed and no addt'l complaints, except as documented ENT HEENT: Reports systems reviewed and no addt'l complaints, except as documented Cardiovascular Cardiovascular: Reports as per HPI Respiratory/Chest Respiratory/Chest: Reports cough and shortness of breath with exertion Gastrointestinal Gastrointestinal: Reports nausea Genitourinary Genitourinary: Reports burning urination and other Details: Forte catheter for urinary retention Musculoskeletal Musculoskeletal: Reports as per HPI and other Details: Nondisplaced rib fracture on the left side Integumentary Integumentary: Reports as per HPI Neurologic Neurologic: Reports as per HPI Psychiatric Psychiatric: Reports anxiety Endocrine Endocrinology: Reports as per HPI Hematologic/Lymphatic Hematologic/Lymphatic: Reports as per HPI Allergic/Immunologic Allergic/Immunologic: Reports as per HPI Physical Exam Const alert, oriented x3, no apparent distress and well nourished General Appearance: cooperative HEENT normocephalic Eyes PERRL Neck General: trachea midline Lymph Lymphatic: no lymphadenopathy noted Resp normal respiratory effort Auscultation: diminished lung sounds Cardio regular rate and regular rhythm Peripheral Pulses: pulses 2+ throughout GI normal to inspection, nondistended, normoactive bowel sounds GI Narrative: Intermittent nausea Extremity normal capillary refill Skin no rashes or lesions noted Neuro Neuro Narrative: Continued left-sided facial drooping Speech: speech normal Psych Mood & Affect: depressed, anxious and flat affect Charges/Coding Palliative Care Palliative Care: 66613 New Pt Consult 60-79 min HPI Current admission Current Code Status: Full code Associated Diagnosis: Debility, CVA, COPD, urinary retention, Consult Data Date of Consult: 01/18/25 Location of consult: Inpatient rehab unit Reason for referral: Goals of care Referral source: Dr. Tolbert Palliative care diagnosis (Summary list): Debility/CVA/COPD Palliative care services/treatment (Accepted, as consult): Accepted Case discussed with referring provider: Outpatient palliative care services HPI Narrative HPI Narrative: PAIN ASSESSMENT patient states that she has pain in her rib from nondisplaced fracture Location: [Left sided rib] Quality: [Sharp] Severity/Quantity: [Moderate to severe] Timing/Frequency: [Intermittent] Factors that make it better/worse: [Worse with coughing, lidocaine patch and medications help] Associated signs & symptoms: [Increased anxiety and depression] Prior to meeting with the patient at bedside I reviewed documentation and labs as well as radiological studies. I also had a discussion with about patient's current progress and need for outpatient assistance as well as goal care conversations. I then met with the patient, Dedra at bedside. I introduced myself as part of the palliative care team in which she voluntarily excepted our services. I discussed with her what palliative is and how it could help her from an outpatient standpoint. She says that she was interested in receiving more information in which I did indicate that they help with symptom management as well as an additional layer support for her once she goes home. Dedra states that she would be open to outpatient palliative care services. Given the fact that she has a life expectancy greater than 18 months, it does limit the agencies that are available to help her from an outpatient standpoint. I did reach out to the social sciences instructor, Alta to provide choices for services. I then discussed with Dedra the severity of her COPD which is Gold III. COPD assessment test (CAT) result was 21 points indicating a high impact on her health. We did discuss how outpatient palliative care could assist her given her chronic illness of COPD. We also discussed smoking/vaping cessation in which the patient did discontinue smoking but continues to vape. I did indicate to her that she has been unable to smoke or vape since she has been in the hospital and if she is interested in smoking cessation in which she did indicate that she is planning on stopping smoking/vaping. We then discussed Dr. Tolbert's concerns about choices anxiety and depression. I did provide some education about the symptoms that she is experiencing that indicate that she is having a heightened anxiety. She did state understanding. She states that currently loud noises are bothering her, televisions being too loud, people singing in another room, and her playing on his phone have all caused her to feel quite nauseous. She also states that last night she did not sleep as she heard a noise in the hallway which woke her up around 2 AM and she began perseverating about the time. She was then unable to go back to sleep until 4 AM. I discussed how sometimes this symptom can be disguised is anxiety which she stated understanding and does feel that this is most likely the culprit. She is receiving BuSpar for anxiety and she was started on Remeron to assist with sleep and depression. Ольга is looking forward to returning home and his discharge planned for 01/23/2025. Referral will be placed for outpatient palliative services which Dedra is endorsing a desire to initiate. All questions were answered. Per Dr. Tolbert on admission: DEDRA MOORE, is a 69 YO F with a past medical history of hyperlipidemia (was on Atorvastatin 20 mg but, recently increased to 40.....just a couple weeks prior to stroke), coronary artery disease (suspected- saw a senior court office assistant for calcifications in the heart and had an order for a nuclear stress but, had a stroke before it could be done), hypertension, GERD, COPD, osteoporosis (did not tolerate Alendronate and was placed on Reclast she thinks) and tobacco dependence in remission (quit in July of 2023) who presented to the emergency department at [facility] on 01/06/2025 complaining of left facial droop, left arm weakness and left leg weakness. Symptoms had started the prior day at approximately 2 PM. NIHSS score in the emergency department was 5. Stat noncontrast CT brain showed focal area of decreased attenuation in the posterior right parietal lobe extending to the right temporal lobe. There was a punctate calcified density in the right sylvian fissure. 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 She was not a candidate for a thrombolytic because her symptoms were present for greater than 12 hours. Teleneurology was consulted and recommended dual antiplatelet agents with aspirin and Plavix, and a statin and completion of a thorough stroke workup. She was admitted to the hospitalist service. Transthoracic echocardiogram showed left ventricular ejection fraction of 70% with stage I diastolic dysfunction and no wall motion abnormalities. Both atria were of normal size. Pulmonary artery systolic pressure was estimated at 28. There was aortic sclerosis with no stenosis. There was a small, less than 1 cm, pericardial effusion with no evidence of tamponade. MRI brain showed acute ischemia in the right insular cortex and parietal lobe with no hemorrhage. There were chronic changes of microvascular ischemia including the frontal and parietal lobes and the kam. There was a small mass immediately posterior to the dens, right of midline with mild mass effect on the caudal medulla. A nonemergent dedicated MRI with contrast was recommended by radiology. A carotid ultrasound showed mild stenosis of the right extracranial internal carotid and mild stenosis of the left extracranial internal carotid and both were estimated to be less than 50%. There were patent and antegrade vertebrals bilaterally. Troponins were negative. Triglycerides were 56 and the total cholesterol was 148. The LDL was 73 and the HDL was 63. TSH, liver panel and hemoglobin A1c were not checked. She was transferred to the acute inpatient rehab unit at [facility] on 3124 for 3 hours of therapy daily to restore function/independence at or near her level prior to admission. She recently had a CT of her chest and was referred to a senior court office assistant because she had coronary calcifications and a pericardial effusion. She has also been having CP/chest pressure with walking and stair climbing that gets better with sitting down. She feels her heart racing with the pain. She also has racing heart and lightheadedness while sitting down at times. Both her mother ans sister have thyroid disease. Her father had a heart operation......she does not know if it was a CABG. *This note was generated with [employer]enerate dictation software. It may contain incorrect words, spelling, and punctuation that were not noted in checking the note before signing. Palliative Assessment Advanced Directive - Current Admission Advance Directive: Advance Directive ON ADMISSION - REFERENCE 3 Do you have a Healthcare Yes 01/10/25 11:27 Living Will? Is a Healthcare Living Will Yes, It is scanned in 01/10/25 11:27 present in the medical record? Do you have a Healthcare Power Yes 01/10/25 11:27 of Pathology Laboratory Director? Is a Healthcare Power of Yes, It is scanned in 01/10/25 11:27 Pathology Laboratory Director present in the medical rec Name of Medical Power of Momo Moore 01/10/25 11:27 Pathology Laboratory Director Do You Want Additional Declined 01/10/25 11:27 Information on Advanced Directives or Healthcare Proxy/DPOA comments: Momo Psychosocial/Spiritual Information Living situation/Marital status: lives in a home with her Momo (oldest son lives next door) Geographic location: [place], [place] Supports: family Mosque/Beena or spiritual preference: mormonism Spiritual distress: none Prior functional status: able to do her own ADL's prior to CVA Assistive devices at home: none uses walker since CVA Cultrual issues: none Information about the patient as a person: baby sits 4 year old grandson 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 Reading, puzzles. Symptoms Palliative performance scale: >60% Palliative prognostic index: 3.5 Dyspnea symptoms: Mild Nausea symptoms: Mild Vomiting symptoms: None Depression symptoms: Mild Anorexia symptoms: None Cough symptoms: Mild Insomnia symptoms: Moderate Diarrhea symptoms: None Fatigue symptoms: Mild Weakness symptoms: Mild Confusion symptoms: None Objective Data Objective Data Noted intermittent hypertension which appears to increase with anxiety Vital Signs: Vital Signs Temp Pulse Resp BP Pulse Ox O2 Del Method FiO2 98.7 F 68 16 144/99 H 96 Room Air 21 01/18/25 06:00 01/18/25 08:04 01/18/25 06:00 01/18/25 08:04 01/18/25 06:00 01/18/25 08:15 01/07/25 21:55 Oxygen Delivery Method Room Air Weight: 135 lb 12.876 oz Body Mass Index (BMI) 24.8 Intake & Output: Intake and Output for Last 24 Hours 01/16/25 01/17/25 01/18/25 23:59 23:59 23:59 Intake Total 1570 / 1570 1680 / 1680 150 / 150 Output Total 1150 / 1150 1800 / 1800 900 / 900 Balance 420 / 420 -120 / -120 -750 / -750 Lab / Micro Data Attestation: I reviewed the patient's lab results. Lab results narrative: I reviewed labs from 01/14/2025 which were the last labs resulted 01/14/25 07:26 01/14/25 07:26 Labs: Laboratory Results - last 24 hr 01/17/25 16:14: Urine Color Yellow, Urine Clarity Sl. Cloudy, Urine pH 6.0, Ur Specific [place] 1.020, Urine Protein 30 H, Urine Glucose (UA) Normal, Urine Ketones 5 H, Urine Occult Blood 250 H, Urine Nitrite Positive H, Urine Bilirubin Negative, Urine Urobilinogen 1 H, Ur Leukocyte Esterase 500 H, Urine RBC 10-25 SEEN, Urine WBC 25-50 SEEN, Ur Squamous Epith Cells 0-5 SEEN, Urine Bacteria 2+, Urine Mucus 0 SEEN Micro: Microbiology 01/17/25 16:16 Urine Catheter - Forte Urine Culture - Preliminary Presumptive E. coli Impressions & Recommendations Patient & Family Issues discussed with the patient and family: Family was not present but did discuss goals of care and outpatient palliative care services Patient goal: Return home Family goal: No family present Ethical & Legal Ethical and legal: None Impressions Impressions: Patient does have significant anxiety Recommentation Palliative recommendations: Patient would benefit from outpatient palliative care services Encouter Achieved as a result of this Palliative Care Encounter: [ [id number]] minutes were spent in total for this visit which consisted, primarily of counseling and education dealing with the complex and emotionally intense issues of symptom management and palliative care in the setting of serious and potentially life-threatening illness. Review of documentation, labs and radiological studies. ?Patient/family had the opportunity to ask questions Plan (1) COPD (chronic obstructive pulmonary disease): QUALIFIERS: COPD type: unspecified COPD Qualified Code(s): J44.9 - Chronic obstructive pulmonary disease, unspecified (2) Hypertension: QUALIFIERS: Hypertension type: primary hypertension Qualified Code(s): I10 - Essential (primary) hypertension (3) Tobacco dependence in remission: (4) Urinary retention: (5) Mixed anxiety and depressive disorder: (6) Goals of care, counseling/discussion: (7) Palliative care encounter: PLAN: Plan *Medical management per primary team *Discussion about goals of care going forward and management of chronic illness *Smoking/vaping cessation discussion *Discussion about anxiety and depression *Education provided about palliative outpatient services *Education on deep breathing exercises and guided imagery *Recommend outpatient palliative care services for management of COPD as well as other chronic illnesses.
--- NOTE | 2025-01-18 11:08 | CASEMGMT ---
Addendum entered by Nicole Padilla 01/18/25 14:58: SW spoke with pt at bedside about DC plans. SW explained Dr plan is to remove diaz on 01/21 and to follow outcome of voiding trials, thus plan for DC 01/23. SW to coordinate skilled HHC to allow for SN, then once nursing need to done, pt can have PCP transition to OP therapy, if needed. Pt agreed. SW provided list of skilled HHC agencies that are within pt's preferred geographical area, INN with insurance, including quality and resource data via [employer]. Pt review and notify SW of preferences. SW also noted BELINDA Osorio, informed this worker that pt agreed to palliative care services at DC. Pt confirmed. SW provided list of choices and [facility] SW to place referral and they will contact pt for SOC. Pt denied any DME needs. to transport pt. Plan: DC home with 01/23, HHC PT/OT/SN, [facility] Original Note: Social Work SW left VM with to discuss DC plans. Nicole Padilla DOWEL INSERTING MACHINE OPERATOR GROUP LEADER [employer]
--- NOTE | 2025-01-18 13:24 | CT_ITS ---
PROCEDURE: ABDOMEN/PELVIS WITH CONTRAST 01/18/2025 REASON FOR EXAM: PELVIC PAIN/URINE RETENTION...ORAL AND IV CONTRAST TECHNIQUE: Procedure Code: [id number] Modality: CT Procedure: ABDOMEN/PELVIS WITH CONTRAST Coronal and Sagittal reconstruction series were provided. CONTRAST: 100 cc of Isovue 370 One or more dose reduction techniques were used (e.g., Automated exposure control, adjustment of the mA and/or kV according to patient size, use of iterative reconstruction technique. COMPARISON: None available. FINDINGS: Lung bases: Trace right and small left pleural effusion with adjacent passive atelectasis. Small pericardial effusion. Liver: Normal size. No mass. Gallbladder: Contracted, limiting evaluation. No biliary ductal dilatation. Spleen: Normal size. Pancreas: Normal size without evidence of mass surrounding inflammation or ductal dilation. Adrenals: Unremarkable. Kidneys: Normal renal sizes. No hydronephrosis. Bladder: Forte catheter in place. Diffuse bladder wall thickening with peripheral enhancement and surrounding fat stranding compatible with cystitis. Reproductive Organs: Retroverted uterus. Small amount of free fluid in the endometrial and cervical canal. Bowel: Moderate colonic stool burden suggesting constipation. No bowel obstruction. Appendix: The appendix is not identified. There is no inflammatory process identified in the right lower quadrant to suggest appendicitis. Lymph nodes: Unremarkable. Vasculature: Moderate atherosclerotic calcifications of the abdominal aorta and its branches. No aneurysm Peritoneum / Retroperitoneum: No free fluid or air. Bones: Degenerative changes of the spine. No acute fractures. CT/Abdomen/Pelvis WITH Contrast IMPRESSION: 1. Small pericardial effusion. Trace right and small left pleural effusions. 2. Diffuse bladder wall thickening with peripheral enhancement and fat strandin g compatible with cystitis. 3. Moderate colonic stool burden suggesting constipation. Reading Location: [facility]
[2025-01-18 13:31] LABS: Hematocrit 36.1 % (37-47); Hemoglobin 11.8 g/dL (12.0-15.0); Immature Granulocytes Count 0.040 X10^3/uL (0.0-0.0); Mean Corp Hgb Conc 32.7 g/dL (32-36); Mean Corpuscular Volume 92.1 fL (81-99); Mean Platelet Vol. 9.4 fl (6.2-12.0); NRBC Flagged by Analyzer 0 % (0-5); Platelet Count 361 K/mm3 (150-450); RBC Distribution Width CV 13.2 % (11.6-14.6); RBC Distribution Width SD 43.9 fl (35.1-43.9); Red Blood Count 3.92 M/mm3 (4.2-5.4); White Blood Count 8.8 K/mm3 (4.4-11.0)
[2025-01-18 14:16] LABS: Anion Gap 12 (5-15); BUN 9 mg/dL (4-19); BUN/Creat Ratio 17.5 RATIO (10-20); Calcium,Total 9.5 mg/dL (7.6-11.0); Carbon Dioxide 20.3 mmol/L (21.0-32.0); Chloride 103 mmol/L (98-108); Estimated Creatinine Clearance 57.31 ml/min (50-250); Glucose 122 mg/dL (70-99); Potassium 3.7 mmol/L (3.3-5.1)
--- NOTE | 2025-01-18 15:02 | CASEMGMT ---
Social Work Referral made to [facility], for [facility] to follow up w/pt for palliative referral once d/c home from rehab on 01/23/2025. IVA Chowdary
--- NOTE | 2025-01-18 15:45 | CASEMGMT ---
Addendum entered by Nicole Padilla 01/19/25 11:37: Maira and [facility] can accept. Maira is AOC. KIN updated pt and secured HHC. Original Note: Social Work Pt selected [facility] preferences: 1. [place], 2. [facility], 3. [facility], 4 Maureen, 5 Rod[facility]. KIN placed referrals via [facility]. Nicole Padilla THEATRE PROGRAM DIRECTOR FAMILY DEVELOPMENT SPECIALIST
[2025-01-18 16:24] VITALS: BP 173/87; PULSE 63
[2025-01-18 16:25] VITALS: BP 173/87; PULSE 63; RESP 17; TEMP 36.3; O2SAT 97
[2025-01-18 16:55] VITALS: BMI 24.8
[2025-01-18 19:50] VITALS: BP 144/69; PULSE 66; RESP 16; TEMP 37.1; O2SAT 94
[2025-01-18] MEDS: Magnesium Citrate 300 ML PO (19:57)
[2025-01-18 22:00] VITALS: O2SAT 94
[2025-01-18] MEDS: MELATONIN 3 MG TABLET PO (22:32)
[2025-01-19 04:34] VITALS: BMI 24.8
[2025-01-19 06:00] VITALS: BP 131/75; PULSE 73; RESP 16; TEMP 36.7; O2SAT 92
[2025-01-19] MEDS: Calcium Carb/Vitamin D 1 TABLET Tablet PO ×2 (07:48→16:49)
[2025-01-19] MEDS: Fluticasone/Salmeterol 232-14 Inhaler 1 PUFF INHALATION ×2 (07:50→20:09)
[2025-01-19] MEDS: Lidocaine 5% Patch 1 PATCH TOPICAL (07:50)
[2025-01-19] MEDS: Umeclidinium Bromide Inhaler 1 PUFF INHALATION (07:50)
[2025-01-19] MEDS: Senna/Docusate Sodium 1 Tablet 2 TABLET PO (07:51)
--- NOTE | 2025-01-19 11:16 | PN_ITS ---
Subjective Subjective Afebrile VSS -heart rate has ranged from 66-73. Blood pressure has ranged from 144/69- 131/75. Losartan was increased to 100 mg daily 01/17/25. Will continue. . She is also on metoprolol XL 25 mg daily (decreased from 50 mg daily due to bradycardia). Maintaining appropriate oxygen saturation on RA from 92-96. She denies SOB when it was measured at 92% Oral intake - OK. Intermittently eating as she states that she does not always like the food. FLUIDS today she has taken in 220ml and has had 550ml out. Discussed with nursing - Culture and sensitivity was returned on her UA today. She was started on Cefadroxil 1,000mg PO bid on 01/17/25. It does show sensitivity of 0.12 to Beta Lactam. There is a sensitivity of 0.06 to Cipro but I do not feel that the benefits outweigh the risks in taking a fluoroquinolone in this patient. Reviewed the THERAPY notes Medication list reviewed. I did see this patient from a palliative standpoint yesterday. She is agreeable to outpatient palliative care referral. Pt did have a CT scan of her abdomen and pelvis yesterday showing considerable stool burden.. Encourage fluid intake. Added Miralax 17g PO and enema overnight. 3 large BM's today. It also indicated cysitis. Tea colored urine noted in diaz. ABX have already been initiated. Complaint of nausea when she was having a BM but it has subsided. No change in anxiety but feels it is related to her bowel movements and abdominal cramping Objective Data Objective Data Vital Signs: Vital Signs Temp Pulse Resp BP Pulse Ox O2 Del Method FiO2 98.1 F 73 16 131/75 H 92 Room Air 21 01/19/25 06:00 01/19/25 06:00 01/19/25 06:00 01/19/25 06:00 01/19/25 06:00 01/19/25 06:00 01/07/25 21:55 Oxygen Delivery Method Room Air Weight: 135 lb 12.876 oz Body Mass Index (BMI) 24.8 Intake & Output: Intake and Output for Last 24 Hours 01/17/25 01/18/25 01/19/25 23:59 23:59 23:59 Intake Total 1680 / 1680 1746 / 1746 220 / 220 Output Total 1800 / 1800 3100 / 3100 550 / 550 Balance -120 / -120 -1354 / -1354 -330 / -330 Lab / Micro Data Attestation: I reviewed the patient's lab results. Lab results narrative: from 01/18/25 01/18/25 13:18 01/18/25 13:18 Labs: Laboratory Results - last 24 hr 01/18/25 13:18: WBC 8.8, RBC 3.92 L, Hgb 11.8 L, Hct 36.1 L, MCV 92.1, MCH 30.1, MCHC 32.7, RDW Std Deviation 43.9, RDW Coeff of Lori 13.2, Plt Count 361, MPV 9.4, Immature Gran % (Auto) 0.500, Neut % (Auto) 76.3 H, Lymph % (Auto) 16.3 L, [place] % (Auto) 5.4, Eos % (Auto) 1.2, Baso % (Auto) 0.3, Absolute Neuts (auto) 6.7, Absolute Lymphs (auto) 1.44, Nucleated RBC % 0, Sodium 135, Potassium 3.7, Chloride 103, Carbon Dioxide 20.3 L, Anion Gap 12, BUN 9, Creatinine 0.52 L, Estim Creat Clear Calc 57.31, Est GFR (MDRD) Non-Af 100, BUN/Creatinine Ratio 17.5, Glucose 122 H, Calcium 9.5 Micro: Microbiology 01/17/25 16:16 Urine Catheter - Diaz Urine Culture - Final Presumptive E. coli Radiography Diagnostic Testing: Radiology Impression Abdomen/Pelvis CT 01/18/25 13:24 IMPRESSION: 1. Small pericardial effusion. Trace right and small left pleural effusions. 2. Diffuse bladder wall thickening with peripheral enhancement and fat stranding compatible with cystitis. 3. Moderate colonic stool burden suggesting constipation. Reading Location: [facility] Physical Exam Const alert, oriented x3 and no apparent distress General Appearance: cooperative HEENT HEENT Narrative: MM are more moist today doing well with increasing her fluid intake. Eyes PERRL Resp normal respiratory effort and clear to auscultation bilaterally Auscultation: diminished lung sounds Cardio regular rhythm and no gallops Cardio Narrative: Bradycardic. GI normal to inspection, nondistended, normoactive bowel sounds, soft to palpation and non-tender GI Narrative: No guarding with palpation Extremity no calf tenderness General Extremity: Negative for edema Skin Rashes: no rashes Psych cooperative Assessment & Plan Assessment/Plan (1) Debility: (2) Ischemic cerebrovascular accident (CVA): (3) Dysphagia due to recent cerebral infarction: (4) Left leg numbness: (5) Facial droop due to stroke: (6) Left arm weakness: (7) Hypertension: QUALIFIERS: Hypertension type: primary hypertension Qualified Code(s): I10 - Essential (primary) hypertension (8) High cholesterol: (9) Coronary artery calcification of [place] artery: (10) Osteoporosis: QUALIFIERS: Osteoporosis type: unspecified Presence of current pathological fracture: without current pathological fracture Qualified Code(s): M81.0 - Age-related osteoporosis without current pathological fracture (11) COPD (chronic obstructive pulmonary disease): QUALIFIERS: COPD type: unspecified COPD Qualified Code(s): J44.9 - Chronic obstructive pulmonary disease, unspecified (12) Grade I diastolic dysfunction: (13) GERD (gastroesophageal reflux disease): QUALIFIERS: Esophagitis presence: without esophagitis Qualified Code(s): K21.9 - Gastro-esophageal reflux disease without esophagitis (14) Tobacco dependence in remission: (15) Atrophic vaginitis: (16) Urethral stenosis: (17) Vaping nicotine dependence, non-tobacco product: (18) Mixed anxiety and depressive disorder: (19) Urinary retention: PLAN: Secondary to urethral stenosis. (20) Constipation: PLAN: Plan 1. Continue therapy 2. Continue amlodipine 10 mg daily in the AM. Continue Cozaar 100 mg daily. Continue hydralazine as needed for elevated blood pressures. 3. Remeron at bedtime. 4. Start BuSpar 5 mg twice daily starting today 5. Palliative care consult for severe COPD with anxiety agreeable to outpatient palliative referral. SW updated. 6. Pt was given Miralax and enema overnight. She has had 3 large BM's today Charges/Coding Visit Charges Inpatient E&M: 36949 Subs Hosp L2
--- NOTE | 2025-01-19 12:59 | CASEMGMT ---
Social Work- SW met with pt to complete the IRFPAI. SW introduced self and role; pt agreeable to meet. Pt scored 15/15 on BIMS and 0/2 on PHQ9. Pt reports no needs at this time. SW remains available to follow. JOSÉM IGUEL Liao
[2025-01-19 14:47] VITALS: BMI 24.8
[2025-01-19 17:37] VITALS: BP 144/77; PULSE 73; RESP 16; TEMP 36.5; O2SAT 93
[2025-01-19 19:58] VITALS: BMI 24.8
[2025-01-19] MEDS: 0.9% Saline Lock 10 ML Syringe IV (20:08)
[2025-01-19] MEDS: Estrogens,Conj. 1 Tube 1 DOSE VAGINAL (20:10)
[2025-01-19] MEDS: MELATONIN 3 MG TABLET PO (20:10)
[2025-01-20 06:00] VITALS: BP 155/84; PULSE 69; RESP 16; TEMP 36.6; O2SAT 98
[2025-01-20] MEDS: Fluticasone/Salmeterol 232-14 Inhaler 1 PUFF INHALATION ×2 (08:10→21:34)
[2025-01-20] MEDS: Umeclidinium Bromide Inhaler 1 PUFF INHALATION (08:10)
[2025-01-20] MEDS: Senna/Docusate Sodium 1 Tablet 2 TABLET PO ×2 (08:11→21:33)
[2025-01-20] MEDS: Calcium Carb/Vitamin D 1 TABLET Tablet PO ×2 (08:12→16:30)
[2025-01-20] MEDS: Lidocaine 5% Patch 1 PATCH TOPICAL (08:13)
--- NOTE | 2025-01-20 12:05 | PN_ITS ---
Subjective Subjective Remains on cefadroxil for an E. coli UTI. This was likely secondary to urine retention/instrumentation to dilate the urethra. Ольга was seen on team rounds today her and aunt were present in the room. All questions were answered to their satisfaction. Afebrile VSS -blood pressure over the past 24 hours has ranged from 131/75 to 155/84. Pulse is ranged from 69-73. Maintaining appropriate oxygen saturation on RA Oral intake - FOOD good FLUIDS good Discussed with nursing - no problems that need addressed Reviewed the THERAPY notes Medication list reviewed. Antihypertensives include amlodipine 10 mg daily and losartan 100 mg daily. Metoprolol was discontinued due to bradycardia. Has not been taking tramadol more than once a day. Dedra tells me that she has no nausea today. She denies abdominal pain. She has had several large bowel movements and feels better. I reviewed the results of the CT of the abdomen and pelvis with her. There was diffuse bladder wall thickening with peripheral enhancement and fat stranding compatible with cystitis. I suspect that she has been retaining urine for quite some time and that is why the bladder wall is thickened. She is going to follow-up with Dr. Acevedo as an outpatient. There was moderate colonic stool burden/constipation. There were trace pleural effusions (L>) which I suspect are due to fluid retention related to positional Forte.......poor drainage when sitting in the recliner.......much better when she is lying in the bed. She is complaining of some vaginal discharge and itching today. Denies mouth pain or painful swallowing. Sleeping better with the institution of Remeron 15 mg at bedtime starting Friday. Objective Data Objective Data Vital Signs: Vital Signs Temp Pulse Resp BP Pulse Ox O2 Del Method FiO2 97.9 F 69 16 155/84 H 98 Room Air 21 01/20/25 06:00 01/20/25 06:00 01/20/25 06:00 01/20/25 06:00 01/20/25 06:00 01/20/25 06:00 01/07/25 21:55 Oxygen Delivery Method Room Air Weight: 135 lb 12.876 oz Body Mass Index (BMI) 24.8 Intake & Output: Intake and Output for Last 24 Hours 01/18/25 01/19/25 01/20/25 23:59 23:59 23:59 Intake Total 1746 / 1746 1460 / 1460 390 / 390 Output Total 3100 / 3100 1050 / 1450 500 / 500 Balance -1354 / -1354 410 / 10 -110 / -110 Lab / Micro Data 01/18/25 13:18 01/18/25 13:18 Micro: Microbiology 01/17/25 16:16 Urine Catheter - Forte Urine Culture - Final Presumptive E. coli Physical Exam Const alert Constitutional Narrative: Less anxious today. Pleasant, talkative, cooperative. Resp Resp Narrative: No crackles or wheezes. Auscultation: diminished lung sounds Cardio regular rate, regular rhythm, no murmurs and no gallops GI normal to inspection, nondistended, normoactive bowel sounds, soft to palpation and non-tender GI Narrative: No guarding with palpation no CVA tenderness Extremity no calf tenderness and no pedal edema Skin General Skin Exam: no breakdown Rashes: no rashes Psych Psych Narrative: Seems calmer today. She is getting better sleep at night. She is cooperative and pleasant. Talkative and interacting well with staff. No somatic complaints to me today. Only taking the Tramadol once a day and has not had any today so far. Assessment & Plan Assessment/Plan (1) Debility: (2) Ischemic cerebrovascular accident (CVA): (3) Dysphagia due to recent cerebral infarction: (4) Left leg numbness: (5) Facial droop due to stroke: (6) Left arm weakness: (7) Hypertension: QUALIFIERS: Hypertension type: primary hypertension Qualified Code(s): I10 - Essential (primary) hypertension (8) High cholesterol: (9) Coronary artery calcification of [place] artery: (10) Osteoporosis: QUALIFIERS: Osteoporosis type: unspecified Presence of current pathological fracture: without current pathological fracture Qualified Code(s): M81.0 - Age-related osteoporosis without current pathological fracture (11) COPD (chronic obstructive pulmonary disease): QUALIFIERS: COPD type: unspecified COPD Qualified Code(s): J44.9 - Chronic obstructive pulmonary disease, unspecified (12) Grade I diastolic dysfunction: (13) GERD (gastroesophageal reflux disease): QUALIFIERS: Esophagitis presence: without esophagitis Qualified Code(s): K21.9 - Gastro-esophageal reflux disease without esophagitis (14) Tobacco dependence in remission: (15) Atrophic vaginitis: (16) Urethral stenosis: (17) Vaping nicotine dependence, non-tobacco product: (18) Mixed anxiety and depressive disorder: (19) Urinary retention: PLAN: Secondary to urethral stenosis. (20) Allegra vaginitis: (21) Pleural effusion: PLAN: suspect due to urethral stricture withe fluid retention. PLAN: Plan 1. Continue therapy 2. Discontinue amlodipine and start Procardia XL 30 mg daily. 3. Increase BuSpar to 3 times daily 4. Continue Remeron and is helping with her sleep. She had no somatic complaints to me today. I suspect the anxiety depression contributes to having a difficult time controlling the BP.....Did not tolerate a Beta sil due to bradycardia 5, Needs to follow up with Dr. Acevedo following DC from rehab. 6. will DC the Forte in the AM and monitor PVR's. 7. she will follow up with cardiology to review the results of the event monitor she is currently wearing. Wants to follow up in [place] so will refer to [facility]. apparently had a high calcium score on CT chest. 8. Will follow-up with neurology at discharge. 9. Discharge is scheduled for Friday and she will go home.If we are not successful in getting the blood pressure under 130/80 would consider DSA of the renal arteries as an outpatient to exclude renal artery stenosis. CT scan of the abdomen revealed atherosclerotic calcification of the abdominal aorta and its branches. 10. Follow up CXR Friday to evaluate the effusions. Charges/Coding Visit Charges Inpatient E&M: 99641 Subs Hosp L2
[2025-01-20 12:34] VITALS: BMI 24.8
--- NOTE | 2025-01-20 12:47 | CASEMGMT ---
Social Work IDT met with patient, and aunt for care plan meeting. Discussed patient's progress in PT/OT/ST/SN/MD/SUPERVISOR GARAGE. Confirmed DC plan for 01/23 home with with [facility]SN and [facility]. Both agencies will contact the pt for SOC, frequency and duration. No other issues identified. Nicole Padilla DOUBLE HEAD MACHINE OPERATOR CONTRACT DRIVER
[2025-01-20 17:13] VITALS: BP 117/65; PULSE 70; RESP 16; TEMP 36.5; O2SAT 94
[2025-01-20 21:20] VITALS: BMI 24.8
[2025-01-20] MEDS: Miconazole-7 Nitrate Cream 1 APPLIC VAGINAL (21:27)
[2025-01-20] MEDS: MELATONIN 3 MG TABLET PO (21:34)
[2025-01-20 22:00] VITALS: BP 139/75; PULSE 67; RESP 16; TEMP 36.7; O2SAT 93
[2025-01-21 06:00] VITALS: BP 142/82; PULSE 65; RESP 16; TEMP 36.6; O2SAT 95; BMI 24.8
[2025-01-21] MEDS: Senna/Docusate Sodium 1 Tablet 2 TABLET PO ×2 (08:16→20:39)
[2025-01-21] MEDS: Calcium Carb/Vitamin D 1 TABLET Tablet PO ×2 (08:16→16:19)
[2025-01-21] MEDS: Umeclidinium Bromide Inhaler 1 PUFF INHALATION (08:16)
[2025-01-21] MEDS: Lidocaine 5% Patch 1 PATCH TOPICAL (08:17)
[2025-01-21] MEDS: NIFEdipine 30 MG Tablet PO (08:17)
[2025-01-21] MEDS: Fluticasone/Salmeterol 232-14 Inhaler 1 PUFF INHALATION ×2 (08:18→20:36)
[2025-01-21 09:38] VITALS: BP 136/72; PULSE 63
[2025-01-21 09:38] LABS: Color, Urine Yellow (Yellow); Glucose, Dipstick Normal (Normal); Ketone-Dipstick Negative (Negative); Leukocyte Esterase-Dipstick 100 /ul (Negative); Nitrite-Dipstick Negative (Negative); Occult Blood-Urine 250 /ul (Negative); Protein-Dipstick 100 mg/dl (Negative); Specific Gravity, Urine 1.020 (1.002-1.030); Urine Bilirubin Dipstick Negative (Negative)
[2025-01-21 09:44] LABS: Calcium Oxalate Crystals Ur 1+ /hpf (<or=2+)
[2025-01-21 09:45] LABS: Mucous, Urine 1+ /hpf (<or=2+); Squamous Epithelial Cells - UA 0-5 SEEN /hpf (5-10)
[2025-01-21 09:46] LABS: Red Blood Cells-Urine 5-10 SEEN /hpf (0-5)
[2025-01-21 13:49] VITALS: BMI 24.8
[2025-01-21 14:00] VITALS: BP 130/70; PULSE 68
[2025-01-21 17:36] VITALS: BP 131/74; PULSE 70; RESP 16; TEMP 36.6; O2SAT 96
[2025-01-21] MEDS: MELATONIN 3 MG TABLET PO (20:33)
[2025-01-21] MEDS: Estrogens,Conj. 1 Tube 1 DOSE VAGINAL (20:39)
[2025-01-21] MEDS: Miconazole-7 Nitrate Cream 1 APPLIC VAGINAL (20:40)
[2025-01-21 20:51] VITALS: BP 150/75; PULSE 78
[2025-01-21 23:31] VITALS: BMI 24.8
[2025-01-22 06:00] VITALS: BP 138/77; PULSE 68; RESP 16; TEMP 36.6; O2SAT 96
--- NOTE | 2025-01-22 08:25 | RAD_ITS ---
PROCEDURE: CHEST PA AND LATERAL 01/22/2025 REASON FOR EXAM: PLEURAL EFFUSIONS TECHNIQUE: Procedure Code: RADCXR Modality: DX Procedure: CHEST PA AND LATERAL COMPARISON: 01/10/2025 FINDINGS: Hardware: None Heart: The heart size is normal. Mediastinum: The mediastinal contour is unremarkable. Lungs: Lungs are hyperexpanded with chronic interstitial changes, no superimposed acute pulmonary process Bones: Degenerative changes are identified within the thoracic spine. RAD/Chest PA and Lateral IMPRESSION: Hyperexpanded lungs with chronic interstitial changes, no superimposed acute pu lmonary process Reading Location: [id number]
[2025-01-22] MEDS: Lidocaine 5% Patch 1 PATCH TOPICAL (08:34)
[2025-01-22] MEDS: Fluticasone/Salmeterol 232-14 Inhaler 1 PUFF INHALATION ×2 (08:34→22:17)
[2025-01-22] MEDS: Umeclidinium Bromide Inhaler 1 PUFF INHALATION (08:34)
[2025-01-22] MEDS: Senna/Docusate Sodium 1 Tablet 2 TABLET PO ×2 (08:35→22:17)
[2025-01-22] MEDS: Calcium Carb/Vitamin D 1 TABLET Tablet PO ×2 (08:36→16:07)
[2025-01-22] MEDS: NIFEdipine 30 MG Tablet PO (08:36)
[2025-01-22 10:00] VITALS: BP 128/68; PULSE 72
[2025-01-22 10:44] VITALS: BMI 24.8
--- NOTE | 2025-01-22 15:31 | EX.DISCHREH ---
Providers Date of Admission: 01/07/25 Date of Discharge: 01/23/25 Primary Care Physician: Dr. Sherley Farrar MD Consultations 01/09/25 10:48 Consult: Urology Routine Consulting Provider: Caryn Acevedo Reason for Consult: urinary retention, unable to st cath EMERGENT Consult: No MD Notified: No Date Notified: 01/09/25 Time Notified: 10:48 01/14/25 08:52 Consult: Urology Routine Consulting Provider: Caryn Acevedo Reason for Consult: urine retention EMERGENT Consult: No MD Notified: Yes Date Notified: 01/14/25 Time Notified: 08:52 Method of Notification: Text 01/18/25 10:52 Consult: Inpatient Palliative Care Routine Consulting Provider: Jo Presley Reason for Consult: severe COPD with anxiety EMERGENT Consult: No Notified: Yes Date Notified: 01/18/25 Time Notified: 10:57 Method of Notification: Verbal Reason For Visit: STROKE Diagnosis Discharge Diagnosis (1) Debility: Status: Acute Code(s): R53.81 - Other malaise (2) Ischemic cerebrovascular accident (CVA): Status: Acute Code(s): I63.9 - Cerebral infarction, unspecified Plan: Right insular cortex and parietal lobe (3) Dysphagia due to recent cerebral infarction: Status: Acute Code(s): I69.391 - Dysphagia following cerebral infarction Plan: Much improved at the time of DC. (4) Left leg numbness: Status: Resolved Code(s): R20.0 - Anesthesia of skin (5) Facial droop due to stroke: Status: Acute Plan: Improved. (6) Left arm weakness: Status: Resolved Code(s): R29.898 - Other symptoms and signs involving the musculoskeletal system Plan: No drift with the LUE at the time of DC from rehab. (7) Hypertension: Status: Chronic Code(s): I10 - Essential (primary) hypertension Qualifiers: Hypertension type: primary hypertension Qualified Code(s): I10 - Essential (primary) hypertension Plan: Discharge on Procardia XL 30 mg daily and Cozaar 100 mg daily. (8) High cholesterol: Status: Chronic Code(s): E78.00 - Pure hypercholesterolemia, unspecified Plan: Being discharged on atorvastatin 80 mg nightly. LDL was 73 at admission to the hospital and she was taking atorvastatin 40 mg daily. (9) Coronary artery calcification of [place] artery: Status: Chronic Code(s): I25.10 - Atherosclerotic heart disease of [place] coronary artery without angina pectoris; I25.84 - Coronary atherosclerosis due to calcified coronary lesion Plan: Will follow-up with Dr. Juan Fagan from cardiology. (10) Osteoporosis: Status: Chronic Code(s): M81.0 - Age-related osteoporosis without current pathological fracture Qualifiers: Osteoporosis type: unspecified Presence of current pathological fracture: without current pathological fracture Qualified Code(s): M81.0 - Age-related osteoporosis without current pathological fracture Plan: Does not tolerate Fosamax due to reflux. She may benefit from Reclast and I referred her to Dr. Douglas Ontiveros, manager power, and [place] to discuss her options for treatment of osteoporosis. Will continue calcium and vitamin D supplementation. Vitamin D level while on rehab was 34.4 which while normal is on the low side of normal and we are heading into winter and days. (11) COPD (chronic obstructive pulmonary disease): Status: Chronic Code(s): J44.9 - Chronic obstructive pulmonary disease, unspecified Qualifiers: COPD type: unspecified COPD Qualified Code(s): J44.9 - Chronic obstructive pulmonary disease, unspecified Plan: She will resume her Trelegy Ellipta inhaler at discharge from rehab. (12) Grade I diastolic dysfunction: Status: Chronic Code(s): I51.89 - Other ill-defined heart diseases (13) GERD (gastroesophageal reflux disease): Status: Chronic Code(s): K21.9 - Gastro-esophageal reflux disease without esophagitis Qualifiers: Esophagitis presence: without esophagitis Qualified Code(s): K21.9 - Gastro-esophageal reflux disease without esophagitis (14) Tobacco dependence in remission: Status: Chronic Code(s): F17.201 - Nicotine dependence, unspecified, in remission Plan: She quit smoking in June 2023 but has been vaping nicotine products. We discussed the adverse effects of vaping on lungs and blood vessels. She states that she is no longer going to . (15) Atrophic vaginitis: Status: Chronic Code(s): N95.2 - Postmenopausal atrophic vaginitis Plan: Started on Premarin vaginal cream 3 times a week and she will continue this at discharge. (16) Urethral stenosis: Status: Chronic Plan: she had to have the urethra dilated by Dr. Caryn Acevedo while an inpatient on rehab. A Forte catheter was inserted post dilation and maintained for a week. Postvoid residuals following removal of the Forte catheter ranged from 87-400 (there was only 1 residual of 400 the others were all less than 200). She has an appointment to follow-up with Dr. Acevedo postdischarge. (17) Vaping nicotine dependence, non-tobacco product: Status: Resolved Code(s): F17.200 - Nicotine dependence, unspecified, uncomplicated (18) Mixed anxiety and depressive disorder: Status: Chronic Code(s): F41.8 - Other specified anxiety disorders Plan: Tried on Remeron and Buspar but, had adverse side effects.....RLS and myoclonic jerks so they were discontinued. I suspect the anxiety is contributing to difficulty controlling BP's. May benefit from some psychotherapy/biofeedback to learn how to control her anxiety. (19) Urinary retention: Status: Chronic Code(s): R33.9 - Retention of urine, unspecified Plan: Secondary to urethral stenosis. S/P urethral dilation. Will follow up with Dr. Acevedo. (20) Allegra vaginitis: Status: Acute Code(s): B37.31 - Acute candidiasis of vulva and vagina Plan: Secondary to cefadroxil for E. coli UTI. Prescription for Monistat vaginal cream given at discharge. (21) Pleural effusion: Status: Resolved Code(s): J90 - Pleural effusion, not elsewhere classified Plan: Suspect due to urethral stricture withe fluid retention. Chest x-ray on 01/22/2025 showed no pleural effusions, no infiltrates and no pulmonary vascular congestion. She does have hyperexpansion. (22) UTI (urinary tract infection), bacterial: Status: Acute Code(s): N39.0 - Urinary tract infection, site not specified; A49.9 - Bacterial infection, unspecified Plan: Related to instrumentation to dilate a stenotic urethra. Urine culture grew E. coli and she was treated with 7 days of cefadroxil 1 g p.o. twice daily. 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 May nee a neurosurgery consult. Can be done as an OP. (24) Rib fracture: Status: Acute Code(s): S22.39XA - Fracture of one rib, unspecified side, initial encounter for closed fracture Qualifiers: Encounter type: initial encounter Fracture type: closed Laterality: left Rib fracture type: single rib Qualified Code(s): S22.32XA - Fracture of one rib, left side, initial encounter for closed fracture Plan 1. Discharge home on 01/23/2025. She will have [facility] care and [facility] palliative care at discharge. 2. Follow-up appointments have been made with Dr. Juan Fagan from cardiology, Dr. Caryn Acevedo from urology and her PCP, Dr. Farrar. She will also need a follow-up appointment with neurology and nursing is going to try to arrange this on Friday. 3. Will need a liver panel and a lipid profile in 4-6 weeks since the dose of the atorvastatin was increased from 40 mg to 80 mg. 4. She will resume her Trelegy inhaler at home 5. On the current calcium/vitamin D product she is using her vitamin D level is on the low side at 34. Would consider an increase in her vitamin D dosage as an outpatient. 6. Follow up for the small mass posterior to the dens that is causing mild mass effect of the caudal medulla can be addressed as an OP by PCP. Medications at Discharge Home Medications calcium 600 mg (as carbonate)-vitamin D3 20 mcg (800 unit) tablet (Caltrate with Vitamin D3) 1 tab PO DAILY supplement 01/06/25 aspirin 81 mg chewable tablet 81 mg PO BREAKFAST stroke 30 days #30 tabs 01/07/25 acetaminophen 500 mg tablet 1,000 mg (2 x 500 mg) PO TID PRN pain 1-4 #1 TAB 01/22/25 atorvastatin 80 mg tablet 80 mg PO QHS cholesterol 30 days #30 tabs 01/22/25 cefadroxil 500 mg capsule 1,000 mg (2 x 500 mg) PO BID #3 caps 01/22/25 clopidogrel 75 mg tablet (Plavix) 75 mg PO DAILY blood thinner 90 days #30 tabs 01/22/25 conjugated estrogens 0.625 mg/gram vaginal cream (Premarin) 1 applic vaginal MoWeFr@2199 #1 tube 01/22/25 lidocaine 5 % topical patch 1 patch topical DAILY #14 ea 01/22/25 losartan 100 mg tablet 100 mg PO DAILY #30 tabs 01/22/25 melatonin 3 mg tablet 3 mg PO QHS #1 TAB 01/22/25 miconazole nitrate 2 % vaginal cream 1 applic vaginal QHS #1 tube 01/22/25 nifedipine 30 mg tablet,extended release 24 hr 30 mg PO DAILY #30 tabs 01/22/25 pantoprazole 20 mg tablet,delayed release 20 mg PO DAILY #30 tabs 01/22/25 tramadol 50 mg tablet 50 mg PO Q8H PRN Pain Score 6-10 1 week #20 tabs 01/22/25 Physical Exam Const alert, oriented x3, no apparent distress, average body habitus and well nourished Constitutional Narrative: Sitting in the recliner at the bedside and appears comfortable. General Appearance: cooperative and well developed HEENT normocephalic, head/scalp atraumatic, hearing grossly normal bilaterally and moist oral mucous membranes HEENT Narrative: No evidence of thrush Head and Scalp: atraumatic; Negative for cyanosis of lips/distal nose Eyes PERRL, EOMs intact bilaterally, conjunctivae normal and no scleral icterus Eyes Narrative: No discharge from the eyes and no mattering of the eyelashes. No visual field cuts. No nystagmus. General Eye: normal appearance of both eyes Neck supple, No nodes and no carotid bruits General: trachea midline Chest Chest: symmetrical chest wall rise Resp normal respiratory effort Resp Narrative: Very diminished breath sounds throughout, especially in the upper lobes. No wheezing. No crackles. No cough. Increased AP diameter of the chest. Effort and Inspection: able to speak in complete sentences Cardio regular rate, regular rhythm, S1 normal heart sound, S2 normal heart sound, no murmurs, no rub and no gallops Cardio Narrative: No ectopy GI normal to inspection, nondistended, normoactive bowel sounds, soft to palpation and non-tender GI Narrative: No guarding with palpation. No nausea. Having regular bowel movements now that she has increased her fluid intake and is taking stool softeners. no CVA tenderness Back/Spine Back/Spine Narrative: + kyphosis Extremity no calf tenderness and no pedal edema Extremity Narrative: No clubbing or cyanosis. Peripheral Pulses: Yes pulses 2+ throughout Skin no jaundice Skin Narrative: Has bruising/petechiae on extremities.....suspect due to blood draws/IV's General Skin Exam: no breakdown Rashes: no rashes Neuro Neuro Narrative: Dysarthria has resolved. Smile is still a little asymmetrical but no significant facial droop when she smiles. Mild decrease in sensation in the left lower face when compared to the right. Tongue protrudes on the midline. No visual field cuts. Pupils are equal round and reactive to light and the extraocular muscles are intact. Good shoulder shrug bilaterally. No drift with the upper extremities and no ataxia. Intact sensation in the upper extremities. No drift with the lower extremities and she has intact sensation and no ataxia. No aphasia and no extinction. Psych cooperative, denies hallucinations and denies suicidal ideation Psych Narrative: Having trouble sleeping at night. Has been anxious a few times when I have seen her and the blood pressure has been difficult to control which I suspect is related to anxiety. Seems to be a little calmer today. Appearance: grossly normal, appropriate and well kempt Attitude: calm and engaged Activity / Motor Behavior: appropriate eye contact Speech: normal speech Weight / BMI Weight Weight: 135 lb 12.876 oz Body Mass Index (BMI) 24.8 ABG / Lab / Microbiology Data 01/18/25 13:18 01/18/25 13:18 Microbiology: Microbiology 01/17/25 16:16 Urine Catheter - Forte Urine Culture - Final Presumptive E. coli Radiography Diagnostic Testing: Radiology Impression Chest X-Ray 01/22/25 08:25 IMPRESSION: Hyperexpanded lungs with chronic interstitial changes, no superimposed acute pulmonary process Reading Location: [id number] Indicators for Scoring Admitted with or Primary Diagnosis of CVA/Stroke: Yes Hx of CVA/Stroke: No Modified Estill Score MRS Score at time of Evaluation: 1-No significant disability NIHSS NIHSS 1a. Level of Consciousness: 0 - Alert; keenly responsive 1b. LOC Questions: 0 - Answers BOTH questions correctly 1c. LOC Commands: 0 - Performs BOTH tasks correctly 2. Best Gaze: 0 - Normal 3. Visual: 0 - No visual loss 4. Facial Palsy: 1 - Minor paralysis (flattened nasolabial fold, asymmetry on smiling) 5a. Left Arm: 0 - No drift; arm holds 90 (or 45) degrees for full 10 seconds 5b. Right Arm: 0 - No drift; arm holds 90 (or 45) degrees for full 10 seconds 6a. Left Le - No drift; leg holds 30-degree position for full 5 seconds 6b. Right Le - No drift; leg holds 30-degree position for full 5 seconds 7. Limb Ataxia: 0 - Absent 8. Sensory: 1 - [id number]-[id number] sensory loss; (mild decrease in sensation in the left lower face compared to the R) 9. Best Language: 0 - No aphasia; normal 10. Dysarthria: 0 - Normal 11. Extinction and Inattention: 0 - No abnormality Total: 2 (Down from a 6 at admission to rehab) Stroke Questions Stroke Team Activated: No D/C Instructions Diet Diet Order/Speech Therapy: INPATIENT Hospital Diet / Speech Therapy Order(s) 01/08/25 12:22 Diet: Cardiac - Heart Healthy Food consistency:: Easy to Chew Liquid Consistency:: Regular/Thin Type of Dietary Supplement:: Ensure Plus High Protein Diet Comments: NO STRAWS. ALL DRINKS IN CUPS. NO CAFFEINE Speech Therapy Comments: Check for pocketing after meals. Encourage oral care after meals. Discharge order: Continue INPATIENT Hospital Diet / Speech Therapy Orders: Yes Discharge Activity: Use Walker (when in the community with people around that can bump into her causing a loss of balance. ) May resume sexual activity in: No Restrictions Weight Bearing Status: Full weight bearing Call your doctor if you observe: Fever of 101 or Higher, Inability to urinate, Inability to have a bowel movement, Shortness of breath, Fainting spells, Swelling in the ankles, Chest pain, Increased palpitations (irregular heartbeat), Calf discomfort and - (STROKE symptoms: facial droop, slurred speech, inability to get words out, weakness on 1 side of the body and not the other, numbness on 1 side of the body and not the other, inability to maintain your balance sitting or standing, vertigo. ) DC O2, CPAP, BIPAP Needs PSN CPAP & BiPAP: BiPAP & CPAP Settings per PSN Fraction of Inspired Oxygen ( 01/07/25 21:55 FIO2) Home O2 Discharge instructions: No When: Follow-up appointments have been scheduled for you and are listed later in this document. Meaningful Use Info Meaningful Use Meaningful Use Diagnoses (Choose all that apply): Ischemic CVA CVA Therapy Assessed for PT,OT and/or ST?: Yes Ischemic Stroke Antithrombotic order at d/c?: Yes Dx of Atrial fib/flutter?: No Anticoagulant at discharge?: No Reason anticoagulant not ordered: Treatment not Indicated Statin Dosing Therapy Reference: STATIN DOSE THERAPY REFERENCE: * Patients > 75 years receive moderate or high dose statin therapy. * Patients 75 years or YOUNGER should receive HIGH intensity statin dose unless contraindicated. You will be required to document reason for non-treatment if statin daily dose does not meet guidelines. HIGH DOSE STATIN THERAPY DAILY Atorvastatin > than or = to 40 mg Rosuvastatin > than or = to 20 mg Amlodipine + Atorvastatin > than or = to 2.5/40 mg Ezetimibe + Simvastatin 10/80 mg Simvastatin 80mg Statins at discharge?: Yes If patient is 75 or younger, pt will be discharged on HIGH intensity statin.: Yes Primary Dx Acute Ischemic CVA?: Yes IV thrombolytic ordered during stay?: No Reason IV thrombolytic not ordered: Procedure not Indicated Discharge Plan Admission Admit Date/Time: 01/07/25 13:56 Primary Reason for Your Visit: Post stroke debility Attending Provider: Shari Tolbert Primary Care Provider: Sherley Farrar Consulting Providers: Caryn Acevedo; Jo Presley Instructions Patient Instructions: Heart Attack Angina Sx, Discharge Instructions for Stroke Additional Instructions / Restrictions: 1. Since the stroke you will need to be on 2 antiplatelet drugs to prevent strokes. These 2 drugs are a baby aspiring and Plavix (also called clopidogrel). You will need to take both agents for a total of 90 days and then the clopidogrel can be discontinued but you will need lifelong aspirin 81 mg daily. There is a drug interaction between omeprazole and clopidogrel. Because of the drug interaction we have discontinued omeprazole and we are substituting a medication called Protonix (he also called pantoprazole) for the omeprazole. There is no drug interaction with pantoprazole. Pantoprazole treats reflux and heartburn well. 2. He will wear the heart monitor for 90 days and then bring it back to the hospital and place it in the drop box which is located at the main entrance on the right just inside the door. You will follow-up with cardiology, Dr. Juan Fagan, to discuss the results of the heart monitor and the increased calcifications in the coronary arteries seen on CT scan of the chest you have arterial sclerosis in the arteries in your brain and most likely have some arterial sclerosis in the coronary arteries. Do not put this off.......we catch these early and treat before they cause a heart attack or sudden . You will like Dr. Fagan......he is very knowledgeable and also very nice and easy to talk to. 3. The amlodipine was not adequately controlling your blood pressure. We have made some changes to your antihypertensive regimen. He will now be taking Procardia XL 30 mg once daily and Cozaar 100 mg daily. On Friday morning prior to discharge your blood pressure is 128/70 and since she recently had a stroke the goal is to keep it under 130/80 so 128/70 is good. Check you BP's at home at different times of the day and record them. Take this record to see Dr. Farrar and Dr. Fagan. 4. In patients who have had strokes there are several goals that need to be achieved. Your blood pressure should consistently be less than 130/80 and your LDL (bad cholesterol) should be less than 70. Your LDL when you presented to the hospital was 73 so we are almost there. The neurologist increased your dose of atorvastatin from 40 mg daily to 80 mg daily since the LDL was greater than 70. You will need to have a liver profile and lipid profile rechecked in 4 to [address] Farrar or Dr. Fagan can order this for you. 5. You have COPD and this has limited your activity somewhat. In patients with COPD we always advised them to stay away from sick people because if you get an upper respiratory tract infection or COVID you could well end up in the hospital with an exacerbation of COPD. Cold air tends to cause bronchospasm and make you more short of breath so when you are going outside in the winter cover your mouth. Regular exercise helps maintain your exercise tolerance so find someplace inside to walk at least 3 times a week. Also continue to use the incentive spirometer and the flutter valve when you go home. It is not unusual to have some chronic cough with COPD but if your cough changes at all or the color of your sputum changes or you have a fever do not wait to go to the doctor call for an appt so that you can be seen before things get bad. 6. If you have problems with insomnia after you go home discussed this with Dr. Farrar. The medications we tried you on in the hospital to treat anxiety and insomnia are Remeron and Buspar. You had adverse side effects and so they were discontinued. It helps to find something to distract you when you are feeling anxious........breathing exercises can help and so can Yoga. Video games help some people and there are a lot available on your phone......u may want to soledad into this. 7. I suspect you have been retaining urine for a while now because the wall of the bladder is thickened. Your kidneys are good. Dr. Acevedo will want to check your post void residual in the office when she sees you. You are still retaining some urine but, it is much less than it was prior to the dilation of the urethra Dr. Acevedo did. You will have to take 3 doses of the antiobiotic, cefadroxil, after you get home but after the third dose she will be done and will not need more antibiotics. 8. The vaginal yeast infection is not uncommon when people take antibiotics. I have given you a prescription for some vaginal cream and you will use 1 applicatorful at bedtime until the cream is gone. 9. You will be going home on an estrogen cream which you will insert into the vagina 3 times a week to help maintain the health of the lining of the urinary tract in the vagina. After we go through menopause the lining of the urogenital tract tends to atrophy and then you have some burning with urination and discomfort with sexual activity. 10. Good luck to you Dedra. It was nice getting to know you. If you or your family have any questions after you are discharged home please do not hesitate to call me. 11. The manager power in [place] who treats osteoporosis is Dr. Douglas Ontiveros. Since you can not tolerate Fosamx you may be a candidate for Reclast which is a shot you get once a year. 12. Please resume the Trelegy inhaler when you get home. OFFICE: [phone] CELL: [phone] NURSES STATION ON REHAB: [phone] Discharge Orders/Prescriptions Prescriptions: New acetaminophen 500 mg Tablet 1,000 mg PO TID PRN (Reason: pain 1-4) Qty: 1 0RF cefadroxil 500 mg Capsule 1,000 mg PO BID Qty: 3 0RF Rx Instructions: Take this antibiotic until gone and then you can stop Premarin 0.625 mg/gram Cream 1 applic vaginal MoWeFr@2200 Qty: 1 0RF miconazole nitrate 2 % Cream 1 applic vaginal QHS Qty: 1 0RF Rx Instructions: 1 application intravaginal nightly until gone. melatonin 3 mg Tablet 3 mg PO QHS Qty: 1 0RF lidocaine 5 % Adhesive Patch,Medicated 1 patch topical DAILY Qty: 14 0RF Protocol: *Topical Application Instructions APPLICATION INSTRUCTIONS: left side ribs Rx Instructions: apply to the painful area of the left ribs daily in AM and remove at HS losartan 100 mg Tablet 100 mg PO DAILY Qty: 30 0RF nifedipine 30 mg Tablet Extended Release 24hr 30 mg PO DAILY Qty: 30 0RF tramadol 50 mg Tablet 50 mg PO Q8H PRN (Reason: Pain Score 6-10) 7 Days Qty: 20 0RF pantoprazole 20 mg Tablet,Delayed Release (Dr/Ec) 20 mg PO DAILY Qty: 30 0RF Continued atorvastatin 80 mg Tablet 80 mg PO QHS 30 Days Qty: 30 0RF clopidogrel [Plavix] 75 mg tablet 75 mg PO DAILY 90 Days Qty: 30 0RF calcium carbonate-vitamin D3 [Caltrate with Vitamin D3] 600 mg-20 mcg (800 unit) tablet 1 tab PO DAILY aspirin 81 mg Tablet,Chewable 81 mg PO BREAKFAST 30 Days Qty: 30 0RF Discontinued amlodipine 5 mg tablet 5 mg PO DAILY omeprazole 20 mg capsule,delayed release(DR/EC) 20 mg PO DAILY losartan 50 mg tablet 50 mg PO DAILY Referrals / Follow Up: Sherley Farrar MD [Primary Care Provider, Internal Medicine] - 01/25/25 3:20 pm Juan Fagan DO [Med Staff - Active Staff, Cardiology] - 02/08/25 3:00 pm Caryn Acevedo MD [Med Staff - Active Staff, Urology] - 01/26/25 9:40 am Angelito Gregory MD [Non-Staff -Ordering Privileges, Neurology] Referral Note: Will call with appointment time Disposition Disposition (needs filled in before D/C Order can be placed): Home Health Service Charges/Coding Visit Charges Inpatient E&M: 58647 Disch Hosp >30min Hospital Course RU Operations None Procedures 2-D Echocardiogram (The left ventricular ejection fraction is 70 %. Normal LV size. Stage 1 diastolic dysfunction. Aortic sclerosis, no stenosis. Small (<1.0 cm) pericardial effusion. There are no echocardiographic indications of cardiac tamponade. ) Summary of Care Provided Minutes Spent on Discharge: 50 Hospital Course: DEDRA MOORE, is a 69 YO F with a past medical history of hyperlipidemia (was on Atorvastatin 20 mg but, recently increased to 40.....just a couple weeks prior to stroke), coronary artery disease (suspected- saw a extension associate for calcifications in the heart and had an order for a nuclear stress but, had a stroke before it could be done), hypertension, GERD, COPD (Gold class III), osteoporosis (did not tolerate Alendronate and is considering Reclast) and tobacco dependence in remission (quit in July of 2023 but, has been vaping nicotine since then) who presented to the emergency department at [facility] on 01/06/2025 complaining of left facial droop, left arm weakness and left leg weakness. Symptoms had started the prior day at approximately 2 PM. NIHSS score in the emergency department was 5. Stat noncontrast CT brain showed focal area of decreased attenuation in the posterior right parietal lobe extending to the right temporal lobe. There was a punctate calcified density in the right sylvian fissure. 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 She was not a candidate for a thrombolytics because her symptoms were present for greater than 12 hours. Teleneurology was consulted and recommended dual antiplatelet agents with aspirin and Plavix (for 90 days and then DC {Plavix), increasing the statin dose t 80 mg and completion of a thorough stroke workup. She was admitted to the hospitalist service. Transthoracic echocardiogram showed left ventricular ejection fraction of 70% with stage I diastolic dysfunction and no wall motion abnormalities. Both atria were of normal size. Pulmonary artery systolic pressure was estimated at 28. There was aortic sclerosis with no stenosis. There was a small, less than 1 cm, pericardial effusion with no evidence of tamponade. MRI brain showed acute ischemia in the right insular cortex and parietal lobe with no hemorrhage. There were chronic changes of microvascular ischemia including the frontal and parietal lobes and the kam. There was a small mass immediately posterior to the dens, right of midline with mild mass effect on the caudal medulla. A nonemergent dedicated MRI with contrast was recommended by radiology. A carotid ultrasound showed mild stenosis of the right extracranial internal carotid and mild stenosis of the left extracranial internal carotid and both were estimated to be less than 50%. There were patent and antegrade vertebrals bilaterally. Troponins were negative. Triglycerides were 56 and the total cholesterol was 148. The LDL was 73 and the HDL was 63. TSH, liver panel and hemoglobin A1c were not checked. She was transferred to the acute inpatient rehab unit at [facility] on 01/10/25 for 3 hours of therapy daily to restore function/independence at or near her level prior to admission. Dedra was found to have urine retention following transfer to rehab. An ultrasound of the kidneys and bladder was obtained and showed an unremarkable examination of the kidneys but she had a postvoid residual of 253 cc. The UA showed no evidence of urinary tract infection. PVR's on rehab were consistently exceeding 300 and so a Forte was attempted but, the urethra was stenotic and the catheter could not be inserted. Dr. Jessica Acevedo was consulted and performed a urethral dilation in the patient's room on rehab. Post dilation a Forte catheter was inserted by Dr. Acevedo. A UA was obtained following dilation and it was negative for infection. A few days later Dedra complained of nausea and the urine had sediment. A UA was sent and showed 25-50 WBCs with 2+ bacteria. She was started on cefadroxil 1 g p.o. twice daily. Urine culture grew E. coli which was pansensitive. The cefadroxil was continued for a total of 7 days. A recheck on the urine was done prior to removal of the Forte catheter 1 week after the dilation. A follow-up UA showed 5-10 white blood cells and 0 bacteria. She developed a vaginal Allegra infection, more likely than not secondary to antibiotics, and was started on Monistat vaginal cream for 7 days. Dedra persistently complained of left rib pain. A dedicated rib study was done and showed a nondisplaced fracture of the posterior rib 5. Pain has been adequately managed with tramadol and Tylenol. Dedra's blood pressure was difficult to control and she was noted to be somewhat anxious. She also had insomnia. She was started on Remeron and had RLS at night and some myoclonic jerks. Remeron was discontinued and we started Buspar but, she did not feel good taking it and was refusing so it was discontinued. BP was not adequately controlled on amlodipine 10 mg daily and Cozaar 50 mg daily. She was transition to Procardia XL 30 mg daily and Cozaar 100 mg daily and the blood pressure is improving. Goal for blood pressures to be consistently less than 130/80. Dedra is going to take her blood pressure a few times a day at varying times when she gets home and keep a record. She will take the record with her to her appointment with Dr. Juan Fagan and Dr. Farrar. Dedra did very well on therapy. At the time of discharge from rehab she is able to ascend/descend 13 steps in the stairwell with 1 handrail at contact-guard assist. She had to take a short rest after descending the steps before going back up. She does get short of breath with exertion and she is known to have Gold class III COPD. She has ambulated up to 400 feet over various surfaces with no assistive device at supervision/standby assist. She is ambulating in her room with a front wheeled walker at mod I. She is independent with eating and supervision/set up for grooming, upper body dressing and tub/shower transfer. She is standby assist for bathing and minimal assistance with lower body dressing. She is mod I with toileting and toilet transfer. The facial droop has improved significantly but she still has a mildly asymmetrical smile. She has a mild decrease in sensation to the left face. The left upper extremity and left lower extremity weakness has resolved. She has no drift with any of her extremities. Dedra was discharged home on 01/23/2025 and will have home health care with [facility]. She will be following up with [facility] for severe COPD. Follow-up appointments were made for her to see Dr. Juan Fagan from cardiology, Dr. Caryn Acevedo from neurology and her PCP Dr. Sherley Farrar. she will need to follow up with neurology. Prior to DC we had not received a call back from neurology so will have nursing contact neurology on Friday to get her scheduled for an appt.
[2025-01-22 18:00] VITALS: BP 132/71; PULSE 70; RESP 16; TEMP 36.6; O2SAT 98
[2025-01-22] MEDS: MELATONIN 3 MG TABLET PO (22:17)
[2025-01-22] MEDS: Miconazole-7 Nitrate Cream 1 APPLIC VAGINAL (22:17)
[2025-01-22 23:28] VITALS: BMI 24.8
[2025-01-23 07:07] VITALS: BP 163/76; PULSE 64; RESP 18; TEMP 37.1; O2SAT 96
[2025-01-23] MEDS: Lidocaine 5% Patch 1 PATCH TOPICAL (07:39)
[2025-01-23] MEDS: Umeclidinium Bromide Inhaler 1 PUFF INHALATION (07:39)
[2025-01-23] MEDS: Fluticasone/Salmeterol 232-14 Inhaler 1 PUFF INHALATION (07:44)
[2025-01-23] MEDS: Senna/Docusate Sodium 1 Tablet 2 TABLET PO (07:44)
[2025-01-23] MEDS: Calcium Carb/Vitamin D 1 TABLET Tablet PO (07:45)
[2025-01-23] MEDS: NIFEdipine 30 MG Tablet PO (07:45)
[2025-01-23 12:58] VITALS: BP 114/65; PULSE 73; RESP 17; TEMP 36.6; O2SAT 94
[2025-01-23 14:30] VITALS: BMI 24.8
== END 2025-01-23 13:10 | disposition home health service (06) | DRG 57 ==
PROVIDERS: Admitting Provider Internal Medicine; PCP Internal Medicine; Referring Provider Internal Medicine; Visit Provider Internal Medicine
DX: I69.354 Hemiplegia and hemiparesis following cerebral infarction affecting left non-dominant side (principal); I31.39 Other pericardial effusion (noninflammatory); J90 Pleural effusion, not elsewhere classified; I69.391 Dysphagia following cerebral infarction; R13.10 Dysphagia, unspecified; N31.2 Flaccid neuropathic bladder, not elsewhere classified; Z51.5 Encounter for palliative care; J44.89 Other specified chronic obstructive pulmonary disease; I10 Essential (primary) hypertension; I70.0 Atherosclerosis of aorta; G93.9 Disorder of brain, unspecified; K21.9 Gastro-esophageal reflux disease without esophagitis; F41.8 Other specified anxiety disorders; E78.00 Pure hypercholesterolemia, unspecified; I25.10 Atherosclerotic heart disease of native coronary artery without angina pectoris; I69.392 Facial weakness following cerebral infarction; M40.209 Unspecified kyphosis, site unspecified; T83.518A Infection and inflammatory reaction due to other urinary catheter, initial encounter; F17.290 Nicotine dependence, other tobacco product, uncomplicated; N95.2 Postmenopausal atrophic vaginitis; Z79.02 Long term (current) use of antithrombotics/antiplatelets; G47.00 Insomnia, unspecified; Z79.82 Long term (current) use of aspirin; R33.9 Retention of urine, unspecified; B37.31 Acute candidiasis of vulva and vagina; Z79.899 Other long term (current) drug therapy; B96.20 Unspecified Escherichia coli [E. coli] as the cause of diseases classified elsewhere; M81.0 Age-related osteoporosis without current pathological fracture; Z23 Encounter for immunization; N39.0 Urinary tract infection, site not specified; Y84.8 Other medical procedures as the cause of abnormal reaction of the patient, or of later complication, without mention of misadventure at the time of the procedure; N35.92 Unspecified urethral stricture, female; S22.32XD Fracture of one rib, left side, subsequent encounter for fracture with routine healing; X58.XXXD Exposure to other specified factors, subsequent encounter; T36.95XA Adverse effect of unspecified systemic antibiotic, initial encounter
CPT/HCPCS: 36415; 71046; 71101; 71250; 74018; 74177; 76770; 80048; 80053; 81001; 82306; 83036; 83735; 84100; 84439; 84443; 85025; 85027; 87086; 87088; 87186; 92507; 92523; 92526; 93005; 94668; 94762; 97110; 97112; 97116; 97162; 97165; 97530; 97535; 97802; 99406; Q9967; A4216